=== PATIENT | female | born 1965 | race Caucasian/White ===

== ENCOUNTER 2023-05-27 17:28 | Outpatient (REF) | payer OTHER, SELFPAY ==
--- NOTE | ~2023-05-27 | MR_ITS ---
EXAMINATION: MR BRAIN WITHOUT CONTRAST CLINICAL INFORMATION: 57-year-old with tremors. COMPARISON: None available. TECHNIQUE: Multiplanar multisequence MR imaging of the brain was done without IV contrast. Some limitations related to motion artifact. FINDINGS: BRAIN VOLUME: Xjxz-qe-tawprdxl generalized diffuse parenchymal volume loss within the limitations of qualitative assessment. Slightly disproportional midbrain volume loss. STRUCTURAL: No malformations. BRAIN AND MENINGES: DWI sequence demonstrates no restricted diffusion to suggest acute or subacute cerebral ischemia. The brain parenchyma is normal in signal intensity. Gradient refocused imaging demonstrates no abnormal susceptibility-weighted signal loss to suggest hemorrhage, hemosiderin staining or abnormal mineralization. No extra-axial fluid collection, space-occupying process or mass effect is identified. VENTRICLES AND SUBARACHNOID SPACES: The ventricular system and subarachnoid spaces are approximately proportional to the degree of parenchymal volume loss, without hydrocephalus. ORBITAL STRUCTURES: The visualized orbital structures are grossly unremarkable within the limitations of the study. VASCULAR: Signal voids are noted in the visualized major intracranial vessels. OSSEOUS STRUCTURES, SINUSES/MASTOIDS, EXTRACRANIAL SOFT TISSUES: Unremarkable. MR/MR head/brain wo con IMPRESSION: 1. Limited exam due to motion artifact. 2. No acute intracranial process identified. No evidence for acute or subacute infarct, hemorrhage, extra-axial fluid collection, space-occupying process, mass effect or hydrocephalus and no significant brain signal abnormalities are seen. 3. Ihbg-ue-ldunfopi generalized diffuse brain parenchymal volume loss. Slightly disproportional midbrain volume loss is suspected. Cannot exclude progressive supranuclear palsy.
== END 2023-05-27 17:29 | disposition home or self-care (01) ==
LOC: HO.MRI 17:28
PROVIDERS: PCP Internal Medicine; Visit Provider Psychiatry & Neurology Neurology
DX: R25.1 Tremor, unspecified (principal)
CPT/HCPCS: 70551

== ENCOUNTER 2024-02-18 10:00 | Outpatient (AMB) | payer OTHER, SELFPAY ==
[2024-02-18 10:04] VITALS: BP 128/69; PULSE 108; O2SAT 96; BMI 37.1
--- NOTE | 2024-02-18 10:04 | MHC.OFFVIS ---
Vital Signs 02/18/24 10:04 Height 5 ft 4 in Weight 216 lb BMI 37.1 BP 128/69 Blood Pressure Location Lt brachial Position Sitting Pulse 108 H Pulse Source Pulse Oximeter Pulse Oximetry (%) 96 Oxygen Delivery Method Room Air Intake Visit Reasons: Chronic Abdominal Pain Allergies amoxicillin Allergy (Intermediate, Verified 02/18/24 10:05) Rash morphine Allergy (Intermediate, Verified 02/18/24 10:05) Chills Medication List - Last Reconciled 02/18/24 by Steff Conn buspirone 7.5 mg PO TID citalopram 40 mg PO DAILY estradiol 0.5 mg PO DAILY famotidine 20 mg PO DAILY fuehloaspmk-skfwnftht-pubayjzd 200-62.5-25 mcg (Trelegy Ellipta) 1 inh inhalation DAILY gabapentin 100 mg PO TID glipizide 10 mg PO DAILY meclizine 25 mg PO TID medroxyprogesterone 2.5 mg PO DAILY melatonin mg PO metformin 500 mg PO BID mirabegron ER (Myrbetriq) 25 mg PO DAILY omeprazole 40 mg PO DAILY primidone 50 mg PO BEDTIME simvastatin 20 mg PO BEDTIME sitagliptin phosphate (Januvia) 50 mg PO DAILY tizanidine 4 mg PO BID PRN HPI Comments Details: Ninoska is a very pleasant 58-year-old female who presents the office today, accompanied by her , for evaluation and management of her abdominal pain Reports sudden onset abdominal pain 4 months ago. Diffuse abdominal pain, mostly epigastric with radiation across upper abdomen on both sides. She does also reports some discomfort of her mid and lower abdomen. Pain initially started with abdomen, over time worsened to include radiation around her sides and now radiates around to her back. Pain is worse after eating and with some tenderness to palpation She has been to the emergency room approximately 5 times over last 4 months. Patient was referred by GI, she has undergone extensive testing with last 4 months including ultrasound, CT scan, upper endoscopy, abdominal MRI all without findings States they have ruled her out for kidney stones, gallstones, pancreatitis, ulcers, infection Denies blood in stool, blood in vomit, fevers, chills, dizziness, weakness, syncope Denies constipation, vomiting or diarrhea Pain is worse with eating. States it does not matter what she eats or when she eats it always makes the pain worse. Endorses nausea, she was given oral antiemetics from her GI doctor that provide her some improvement Has been taking acid reducers and sucralfate but symptoms persist Pain today is rated as 7 out 10, constant In terms of muscle damage condition is described as pinching, cramping, dull, sore, aching, hot Pain is negatively impacting patient's enjoyment of life, general activity, sleep, ability care of herself and ability to function normally. Denies current use of nicotine, tobacco, alcohol or illicit substances. Denies current use of anticoagulants Denies implantable devices, pacemaker or defibrillator COUNTS INCLUDE 234 BEDS AT THE [facility] Medical History (Updated 02/18/24 @ 11:34 by Sheryl Garduno APRN, LAURA) Chronic headaches Pancreatitis Insomnia Panic disorder Depression Anxiety Chronic back pain Obesity GERD (gastroesophageal reflux disease) Asthma Diabetes Surgical History (Updated 02/18/24 @ 11:32 by Sheryl Garduno APRN, LAURA) History of hip surgery H/O left wrist surgery H/O: hysterectomy Social History (Updated 02/18/24 @ 11:35 by Sheryl Garduno APRN, LAURA) Alcohol intake: never Patient Tobacco Use Status: Never used Tobacco Review of Systems Const All systems reviewed & are unremarkable except as noted in HPI and below Physical Exam Vital Signs: Last Vital Signs Pulse 108 H 02/18/24 10:04 BP 128/69 02/18/24 10:04 Pulse Ox 96 02/18/24 10:04 Oxygen Delivery Method Room Air 02/18/24 10:04 BMI result Body Mass Index 37.1 General: awake, alert, oriented. Answers questions appropriately. Fully engaged in examination. Obese. Skin: warm, dry, intact HEENT: Normocephalic. Hearing intact. Cardiac: External chest normal in appearance. Respiratory: No cough, audible wheezing or stridor. Abdomen: Abdomen soft. No guarding. Minimal diffuse tenderness to palpation. Normal bowel sounds present. MS: No obvious swelling or deformities. Able to transition from sit to stand unassisted. Ambulates with bilaterally normal heel strike and toe off Tender to palpation midline lower thoracic and upper lumbar vertebrae and paraspinal muscles Valsalva negative Neurological: Oriented to person, place, time and situation. Thought process intact. No gait abnormalities appreciated. Psychiatric: Appropriate mood and affect. Good judgment and insight. Results Reviewed Results Reviewed: Records have been requested for review Assessment & Plan Assessment & Plan (1) Abdominal pain: Code(s): R10.9 - Unspecified abdominal pain Category: Medical Plan Ninoska is a very pleasant 58-year-old female who presented the office today for evaluation and management of her abdominal pain Imaging, blood work and emergency room visit records have been requested from [facility] in [facility] Follow-up as planned for colonoscopy Celebrex 50 mg p.o. twice daily, patient advised on cautions for use. Take with food. Do not take with any other nonsteroidal anti-inflammatory medications. Follow up with GI as planned. Follow up in our office after colonoscopy, sooner if needed Medications: New celecoxib Take with food, do not take with any other nonsteroidal anti-inflammatory medications 50 mg PO BID 60 caps 0RF Coding Level of Care Code New Pt Level 4 (95810) Diagnoses Abdominal pain R10.9
== END 2024-02-18 11:34 | disposition home or self-care (01) ==
PROVIDERS: PCP Internal Medicine; Referring Provider Nurse Practitioner Primary Care; Visit Provider Registered Nurse Emergency
DX: R10.9 Unspecified abdominal pain (principal)
CPT/HCPCS: 99204

== ENCOUNTER → 2024-02-18 10:00 | Outpatient (BNVA) | payer OTHER, SELFPAY | PROVIDERS: PCP Internal Medicine; Referring Provider Nurse Practitioner Primary Care; Visit Provider Registered Nurse Emergency | DX: R10.9 Unspecified abdominal pain (principal); G89.29 Other chronic pain | CPT/HCPCS: 99202 ==

== ENCOUNTER 2024-03-03 13:06 | Emergency (ER) | payer OTHER, SELFPAY ==
[2024-03-03 13:48] VITALS: BP 134/92; PULSE 97; RESP 18; TEMP 36.4; O2SAT 96; BMI 36.0
[2024-03-03 14:09] LABS: MANUAL DIFF FLAG NO
[2024-03-03 14:11] LABS: Basophils Absolute Auto 0.1 X10*3/uL (0.0-0.2); Basophils Percent Auto 0.6 % (0-2); Eosinophils Absolute Auto 0.2 X10*3/uL (0.0-0.4); Eosinophils Percent Auto 1.2 % (0-4); Hematocrit 40.3 % (37.0-47.0); Hemoglobin 13.7 g/dl (12.0-16.0); Imm Gran Abs Auto 0.08 X10*3/uL (0.00-0.03); Imm Gran Pct Auto 0.7 % (0.0-0.4); Lymphocytes Absolute Auto 3.7 X10*3/uL (1.2-4.9); Lymphocytes Percent Auto 30.5 % (20-40); Mean Corpuscular Volume 91.2 fL (80.0-98.0); Mean Platelet Volume 9.7 fL (9.4-12.3); Monocytes Absolute Auto 0.7 X10*3/uL (0.1-1.2); Monocytes Percent Auto 5.3 % (2-11); Neutrophils Absolute Auto 7.5 x10*3/uL (2.0-8.3); Neutrophils Percent Auto 61.7 % (45-73); Platelet Count 380 X10*3/uL (160-400); Red Blood Count 4.42 X10*6/uL (4.20-5.50); White Blood Count 12.2 X10*3/uL (4.8-10.8)
[2024-03-03 14:24] LABS: Appearance Urine Clear; Color Urine Yellow; Glucose Urine UA 250 mg/dL (Negative); Leukocyte Esterase Urine Negative (Negative); Nitrite Urine Negative (Negative); PH 7.5 (5.0-9.0); Urine Blood Negative (Negative); Urine Ketones Negative (Negative); Urine Protein Negative (Neg-Trace)
[2024-03-03 14:30] LABS: Alanine Aminotransferase 14 U/L (0-31); Albumin Level 3.8 g/dL (3.5-5.0); Alkaline Phosphatase 129 U/L (39-117); Anion Gap 10 (12-20); Aspartate Amino Transferase 11 U/L (5-31); Bilirubin Total 0.2 mg/dL (0.0-1.0); Blood Urea Nitrogen 8 mg/dL (9-16); Calcium 8.9 mg/dL (8.4-10.2); Carbon Dioxide 23 mmol/L (22-29); Chloride 109 mmol/L (96-108); Creatinine Clr Calc Pharmacy 93.8; Estimated Glomerular Filt Rate > 60; Glucose Random 206 mg/dL (60-115); Lipase 10 U/L (8-78); Potassium 3.9 mmol/L (3.3-5.1); Sodium 138 mmol/L (135-145); Total Protein 6.9 g/dL (6.5-8.0)
[2024-03-03 17:05] VITALS: BP 138/77; PULSE 80; RESP 16; TEMP 36.6; O2SAT 96
--- NOTE | 2024-03-03 17:06 | MHC.EDTECH ---
This pct just assumed care of patient ,vitals taken ,RN Gabi in room talking to Patient .Call mcmahan within Pt reach .
--- NOTE | 2024-03-03 17:13 | PC.NURSE ---
Pt presents to ED from home, reports 5 months of ABD pain generalized along with nausea. Reports she had been to multiple ERs with no answers. Pain is 9/10, all over, hard to describe. Alert and oriented, breathing even and unlabored, skin warm and dry
--- NOTE | 2024-03-03 17:15 | ED_ITS ---
HPI - Abdominal Pain General Chief Complaint: Abdominal Pain Stated Complaint: abd pain-back pain-weakness Time Seen by Provider: 03/03/24 17:09 Source: patient Mode of arrival: ambulatory Limitations: no limitations History of Present Illness ED Provider: doris MELGAR narrative: Patient has chronic abdominal pain for more than 6 months had multiple workup including ultrasound CT scan MRI seen by GI unable to get better no nausea no vomiting abdominal bloating recently started on dicyclomine without much also taking Seroquel and tizanidine. Related Data Home Medications ?Medication ?Instructions ?Recorded ?Confirmed buspirone 7.5 mg tablet 7.5 mg PO TID 02/18/24 02/18/24 citalopram 40 mg tablet 40 mg PO DAILY 02/18/24 02/18/24 estradiol 0.5 mg tablet 0.5 mg PO DAILY 02/18/24 02/18/24 famotidine 20 mg tablet 20 mg PO DAILY 02/18/24 02/18/24 fluticasone fur. 200 mcg-umeclid 1 inh inhalation DAILY 02/18/24 02/18/24 62.5 mcg-vilant 25 mcg inhalat.powder (Trelegy Ellipta) gabapentin 100 mg capsule 100 mg PO TID 02/18/24 02/18/24 glipizide 10 mg tablet 10 mg PO DAILY 02/18/24 02/18/24 meclizine 25 mg tablet 25 mg PO TID 02/18/24 02/18/24 medroxyprogesterone 2.5 mg tablet 2.5 mg PO DAILY 02/18/24 02/18/24 melatonin 5 mg capsule mg PO 02/18/24 02/18/24 metformin 500 mg tablet 500 mg PO BID 02/18/24 02/18/24 mirabegron 25 mg tablet,extended 25 mg PO DAILY 02/18/24 02/18/24 release 24 hr (Myrbetriq) omeprazole 40 mg capsule,delayed 40 mg PO DAILY 02/18/24 02/18/24 release primidone 50 mg tablet 50 mg PO BEDTIME 02/18/24 02/18/24 simvastatin 20 mg tablet 20 mg PO BEDTIME 02/18/24 02/18/24 sitagliptin phosphate 50 mg tablet 50 mg PO DAILY 02/18/24 02/18/24 (Januvia) tizanidine 4 mg capsule 4 mg PO BID PRN 02/18/24 02/18/24 Previous Rx's ?Medication ?Instructions ?Recorded celecoxib 50 mg capsule 50 mg PO BID #60 caps 02/18/24 tramadol 50 mg tablet 50 mg PO Q8-10H PRN pain #20 tabs 03/03/24 Allergies Allergy/AdvReac Type Severity Reaction Status Date / Time amoxicillin Allergy Intermediate Rash Verified 03/03/24 13:49 morphine Allergy Intermediate Chills Verified 03/03/24 13:49 Review of Systems Review of Systems Yes all other systems are reviewed and are negative [facility] Past Medical History Medical History Chronic headaches Pancreatitis Insomnia Panic disorder Depression Anxiety Chronic back pain Obesity GERD (gastroesophageal reflux disease) Asthma Diabetes Surgical History History of hip surgery H/O left wrist surgery H/O: hysterectomy Social History Social History Alcohol intake: never Patient Tobacco Use Status: Never used Tobacco Smoked in Last 30 Days: No Use of substances other than those prescribed or required for medical reasons: No Advance Directives: No Advance Directives Information Provided: Yes Do you have a plan to hurt others: No Plan Physical Exam ED Vital Signs: Vital Signs - 24 hr 03/03/24 13:48 03/03/24 17:05 03/03/24 18:19 Temperature 97.5 F 97.8 F 98.7 F Pulse Rate 97 80 77 Respiratory Rate 18 16 16 Blood Pressure 134/92 H 138/77 134/70 Pulse Oximetry 96 96 Oxygen Delivery Method Room Air Room Air Room Air 03/03/24 19:08 Temperature 98.7 F Pulse Rate 77 Respiratory Rate 16 Blood Pressure 134/70 Pulse Oximetry Oxygen Delivery Method Room Air BMI result Body Mass Index 36.0 Appearance: Alert. Oriented X3. No acute distress. Eyes: PERRLA, No Nystagmus ENT: Pharynx normal. Oral Mucosa moist Neck: Normal inspection. Neck supple. CVS: Normal heart rate and rhythm. Pulses normal. Respiratory: No respiratory distress. Equal air entry bilateral, no wheezing/rales/rhonchi Abdomen: Soft and diffuse tenderness no rebound tenderness or guarding Bowel sounds are present, no mass palpable, no CVA tenderness Skin: Skin warm and dry. Normal skin color. Normal skin turgor. Extremities: No lower extremity edema. No calf tenderness Neuro: Oriented X 3. No motor deficit. Medical Decision Making Medical Decision Making [facility] Narrative: Patient has chronic abdominal pain likely IBS workup negative labs were stable previous workup including MRI and CT scans negative will discharge patient home on Tramadol and advised to continue dicyclomine Differential Diagnosis Differential Diagnoses: The differential diagnosis associated with the presentation includes IBS/chronic abdominal pain/anxiety Lab Data [facility] Lab Attestation statement: I reviewed the patient's lab results. 03/03/24 14:04 03/03/24 14:04 Labs: Lab Results 03/03/24 Range/Units 14:04 WBC 12.2 H (4.8-10.8) X10*3/uL RBC 4.42 (4.20-5.50) X10*6/uL Hgb 13.7 (12.0-16.0) g/dl Hct 40.3 (37.0-47.0) % MCV 91.2 (80.0-98.0) fL MCH 31.0 (27.0-33.0) pg MCHC 34.0 (31.0-35.0) g/dl RDW 13.0 (11.0-16.0) % Plt Count 380 (160-400) X10*3/uL MPV 9.7 (9.4-12.3) fL Immature Gran % (Auto) 0.7 H (0.0-0.4) % Neut % (Auto) 61.7 (45-73) % Lymph % (Auto) 30.5 (20-40) % [place]y % (Auto) 5.3 (2-11) % Eos % (Auto) 1.2 (0-4) % Baso % (Auto) 0.6 (0-2) % Lymph # (Auto) 3.7 (1.2-4.9) X10*3/uL [place]y # (Auto) 0.7 (0.1-1.2) X10*3/uL Eos # (Auto) 0.2 (0.0-0.4) X10*3/uL Baso # (Auto) 0.1 (0.0-0.2) X10*3/uL Abs Immat Gran (auto) 0.08 H (0.00-0.03) X10*3/uL Absolute Neuts (auto) 7.5 (2.0-8.3) x10*3/uL Absolute Nucleated RBC 0.000 (0.0-0.012) X10*3/uL Nucleated RBC % (auto) 0.0 (0.0-0.2) /100WBC Sodium 138 (135-145) mmol/L Potassium 3.9 (3.3-5.1) mmol/L Chloride 109 H (96-108) mmol/L Carbon Dioxide 23 (22-29) mmol/L Anion Gap 10 L (12-20) BUN 8 L (9-16) mg/dL Creatinine 0.74 (0.5-1.4) mg/dL Estim Creat Clear Calc 93.8 Estimated GFR > 60 Random Glucose 206 H (60-115) mg/dL Calcium 8.9 (8.4-10.2) mg/dL Magnesium 2.0 (1.6-2.6) mg/dL Total Bilirubin 0.2 (0.0-1.0) mg/dL AST 11 (5-31) U/L ALT 14 (0-31) U/L Alkaline Phosphatase 129 H (39-117) U/L Total Protein 6.9 (6.5-8.0) g/dL Albumin 3.8 (3.5-5.0) g/dL Lipase 10 (8-78) U/L Urine Color Yellow Urine Appearance Clear Urine pH 7.5 (5.0-9.0) Ur Specific [place] 1.020 (1.005-1.025) Urine Protein Negative (Neg-Trace) mg/dL Urine Glucose (UA) 250 H (Negative) mg/dL Urine Ketones Negative (Negative) mg/dL Urine Blood Negative (Negative) Urine Nitrite Negative (Negative) Ur Leukocyte Esterase Negative (Negative) Medications Administered Discontinued Medications Generic Name Dose Route Start Last Admin Trade Name Freq PRN Reason Stop Dose Admin Al Hydroxide/Mg Hydroxide 30 ml 03/03/24 18:50 03/03/24 18:54 Magnesium Hydrox/Alum Hydrox 30 Ml Oral.Susp PO 03/03/24 18:51 30 ml ONCE ONE Administration Dicyclomine HCl 20 mg 03/03/24 17:27 03/03/24 17:46 Dicyclomine Hcl 10 Mg Capsule PO 03/03/24 17:28 20 mg ONCE ONE Administration Ketorolac Tromethamine 30 mg 03/03/24 18:07 03/03/24 18:45 Ketorolac Tromethamine 30 Mg/Ml Vial IVPUSH 03/03/24 18:08 30 mg ONCE ONE Administration Tramadol HCl 50 mg 03/03/24 17:27 03/03/24 17:46 Tramadol Hcl 50 Mg Tablet PO 03/03/24 17:28 50 mg ONCE ONE Administration Discharge Plan Discharge Clinical Impression: Irritable bowel syndrome Patient Disposition: Home, Self-Care Instructions: Irritable Bowel Syndrome (ED) Additional Instructions: Continue dicyclomine as prescribed by your PCP Tramadol for severe pain Follow with a GI/PCP Avoid food as advised Prescriptions: New tramadol 50 mg tablet 50 mg PO Q8-10H PRN (Reason: pain) Qty: 20 0RF No Action citalopram 40 mg tablet 40 mg PO DAILY primidone 50 mg tablet 50 mg PO BEDTIME buspirone 7.5 mg tablet 7.5 mg PO TID famotidine 20 mg tablet 20 mg PO DAILY mirabegron [Myrbetriq] 25 mg tablet extended release 24 hr 25 mg PO DAILY simvastatin 20 mg tablet 20 mg PO BEDTIME melatonin 5 mg capsule PO medroxyprogesterone 2.5 mg tablet 2.5 mg PO DAILY glipizide 10 mg tablet 10 mg PO DAILY omeprazole 40 mg capsule,delayed release(DR/EC) 40 mg PO DAILY Januvia 50 mg tablet 50 mg PO DAILY estradiol 0.5 mg tablet 0.5 mg PO DAILY Rx Instructions: off 5 days; repeat cycle tizanidine 4 mg capsule 4 mg PO BID PRN meclizine 25 mg tablet 25 mg PO TID Trelegy Ellipta 200-62.5-25 mcg blister with device 1 inh inhalation DAILY metformin 500 mg tablet 500 mg PO BID gabapentin 100 mg capsule 100 mg PO TID celecoxib 50 mg capsule 50 mg PO BID Qty: 60 0RF Rx Instructions: Take with food, do not take with any other nonsteroidal anti-inflammatory medications Interventions: ED Discharge Assessment Last Done: 03/03/24 19:08 Discharge Date/Time: 03/03/24 19:19 Print Language: Trinidadian
[2024-03-03] MEDS: Dicyclomine HCl 10 MG CAPSULE 20 MG PO (17:46)
[2024-03-03] MEDS: traMADoL HCL 50 MG TABLET PO (17:46)
[2024-03-03 18:19] VITALS: BP 134/70; PULSE 77; RESP 16; TEMP 37.1
[2024-03-03] MEDS: Ketorolac Tromethamine 30 MG/ML VIAL IVPUSH (18:45)
[2024-03-03] MEDS: Magnesium Hydrox/Alum Hydrox 30 ML ORAL.SUSP PO (18:54)
[2024-03-03 19:08] VITALS: BP 134/70; PULSE 77; RESP 16; TEMP 37.1
== END 2024-03-03 19:19 | disposition home or self-care (01) ==
PROVIDERS: Physician Assistant; Emergency Provider Internal Medicine; PCP Internal Medicine
DX: K58.9 Irritable bowel syndrome, unspecified (principal); R10.9 Unspecified abdominal pain; E11.9 Type 2 diabetes mellitus without complications; R51.9 Headache, unspecified; Z79.899 Other long term (current) drug therapy
CPT/HCPCS: 36415; 80053; 81003; 83690; 83735; 85025; 96374; 99284; 99285; J1885

== ENCOUNTER 2025-01-12 12:59 | Outpatient (AMB) | payer OTHER, SELFPAY ==
--- NOTE | 2025-01-12 13:07 | A.OFFVIS_ITS ---
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 There was family h/o Mahad disease , which I could not independently confirm. Her gene test for Huntingtone disease was negative. Headaches were controlled with topiramate. Primidone was helping with tremor and unsteadiness. And quetiapine was helping with mood and insomnia. She was happy with quetiapine stating that it worked very well. She was haivng a lot of back pain from arthritis and was going to have steroid injections. Sleep was not good. She has not fallen. [facility] Medical History (Updated 01/12/25 @ 13:19 by Wen De La Garza MD) Carpal tunnel syndrome Carpal tunnel syndrome, bilateral upper limbs Olivopontocerebellar atrophy Ataxia Migraine Dyskinesia Chronic headaches Pancreatitis Insomnia Panic disorder Depression Anxiety Chronic back pain Obesity GERD (gastroesophageal reflux disease) Asthma Diabetes Surgical History History of hip surgery H/O left wrist surgery H/O: hysterectomy Social History Alcohol intake: never Patient Tobacco Use Status: Never used Tobacco Review of Systems Const Details: Constitutional:?No fever, chills, fatigue, weight loss, or night sweats. HEENT:?No headache, vision changes, hearing loss, nasal congestion, sore throat. Neurological:?Difficulty sleeping with back pain Psychiatric:?No anxiety, depression, mood swings, sleep disturbance, or halluci nations. Endocrine:?No heat/cold intolerance, polydipsia, polyuria, or hair/skin changes. Hematologic/Lymphatic:?No easy bruising, bleeding, or lymphadenopathy. Integumentary (Skin):?No rash, lesions, itching, or color changes. ? Physical Exam Neuro Other: Mental Status: Alert and oriented to person, place, and time. Normal attention. Normal spontaneous speech, fluency, and comprehension. No obvious issues with mood and memory. Affect is appropriate. Cranial Nerves: CN II: Visual cary full to confrontation, visual acuity intact. CN III, IV, : Pupils equal, round, reactive to light and accommodation. Extraocular movements are normal. CN V: Facial sensation is normal. CN VII: Facial movements symmetrical. CN VIII: Hearing intact to bedside conversation is normal. CN IX, X: Palate elevates symmetrically. CN XI: Shoulder shrug and head turn symmetrical. CN XII: Tongue midline without atrophy or fasciculations. Extrapyramidal: Mild to moderate finger to nose tremor, mild gait unsteadiness of ataxic type Speech: Normal; no dysarthria or tremor. Assessment & Plan Assessment & Plan (1) Olivopontocerebellar atrophy: Comment: Meds tried for shaking/dyskinesia: Austedo NCV/EMG UE Moderate bilateral median neuropathy across the Carpal tunnel. Chronic bilateral mid cervical radiculopathy. 02/24/24. Mahad disease test at [facility] in Apr 2023: Negative CT brain WO at [facility] in 2017: Mild atrophy MRI brain WO at [facility] in May 2023: mild to mod diff atroph, somewhat more in brainstem and cerebellum, caudate are ok. Code(s): G23.8 - Other specified degenerative diseases of basal ganglia Category: Medical (2) Migraine without aura, not intractable, without status migrainosus: Code(s): G43.009 - Migraine without aura, not intractable, without status migrainosus Category: Medical (3) Insomnia: Code(s): G47.00 - Insomnia, unspecified Category: Medical Qualifiers: Insomnia type: due to medical condition Qualified Code(s): G47.01 - Insomnia due to medical condition (4) Tremor: Code(s): R25.1 - Tremor, unspecified Category: Medical Plan Impression: a: Tremor with MRI brain suggesting OPCA b: Migraine w/o aura c: Insomnia Rec: a: Primidone 50mg at night b: Topiramate 50mg at night c: Quetiapine 50mg at night Medications: New primidone 50 mg PO BEDTIME 90 tabs 1RF topiramate 50 mg PO DAILY 90 days 90 tabs 0RF topiramate 50 mg PO DAILY 90 tabs 0RF 90 days quetiapine 50 mg PO BEDTIME 90 tabs 0RF quetiapine 50 mg PO BEDTIME 90 tabs 0RF Refilled primidone 50 mg PO BEDTIME 90 tabs 1RF Coding Level of Care Code Tele Est Pt Level 4 (87923) Diagnoses Olivopontocerebellar atrophy G23.8 Migraine without aura, not intractable, without status migrainosus G43.009 Insomnia due to medical condition G47.01 Insomnia type: due to medical condition Tremor R25.1
--- OUTSIDE RECORDS SUMMARY | 2025-01-12 13:25 | XMS_ITS | Patient Health Record ---
Author Organization [facility] [place] Address [address] [place] [address] Care Team Providers Care Scientific Affairs Manager Name Role Phone Shay Rocha Primary Care Provider Unavailab Chino Arreguin Unavailable [phone] Salma Mcfadden Unavailable [phone] Reason For Referral No Information Encounters Encounter Location Date Provider [facility] [address] [facility] [address] [place] [address] 11/08/2024 Salma Mcfadden Plan Of Treatment No Information Insurance Providers Payer Name Payer Address Payer Phone Subscriber Number Group Number Insured Name Patient Relationship to Insured Coverage Start Date Coverage End Date [facility] [employer] Claims [address] [place] [id number] Ninoska Rooney Self - patient is the insured
--- OUTSIDE RECORDS SUMMARY | 2025-01-12 13:25 | XMS_ITS | Encounter Summary ---
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 Medical Records [address] [place] [address] Mark Figueroa MD Social History Tobacco Use Types Packs/Day Years Used Date Smoking Tobacco: Never Smokeless Tobacco: Never Alcohol Use Standard Drinks/Week Comments No 0 (1 standard drink = 0.6 oz pur e alcohol) Sex Assigned at Date Recorded Not on file Job Start Date Occupation Industry Not on file Not on file Not on file documented as of this encounter Plan of Treatment Not on file documented as of this encounter Visit Diagnoses Not on filedocumented in this encounter Care Teams Gear Inspector Relationship Specialty Start Date End Date Tyree Talamantes MD PCP - General Internal Medicine 11/22/15 Sol Knutson MD [address] [place] [id number] PCP - General Internal Medicine 06/07/21 11/21/22 Shay Rocha [address] [place] [id number] PCP - General Internal Medicine 11/22/22 documented as of this encounter
--- OUTSIDE RECORDS SUMMARY | 2025-01-12 13:26 | XMS_ITS | Encounter Summary ---
Author Organization [facility] Address [address] [place] [address] Care Team Providers Care Station Repairer Name Role Phone Shay Rocha MD Primary Care Provider Encounter Details Date Type Department Care Team (Late st Contact Info) Description 12/10/2024 Telephone [facility] [id number] [place] [address] Felice Christianson MD [address] [place] [address] Social History Tobacco Use Types Packs/Day Years Used Date Smoking Tobacco: Never Smokeless Tobacco: Never Alcohol Use Standard Drinks/Week Comments No 0 (1 standard drink = 0.6 oz pur e alcohol) Comments No Sex and Gender Information Value Date Recorded Sex Assigned at Female 09/07/2024 2:03 AM EDT Legal Sex Female 10:54 AM EST Gender Identity Female 09/07/2024 2:03 AM EDT Sexual Orientation Choose not to disclose 2024 2:03 AM EDT documented as of this encounter Progress Notes * Sanyd Evangelista RN - 01/12/2025 9:33 AM EDT Marlee 3+ sensors delivered 12/31 PA faxed to [facility] for Marlee 3 reader * Maria E Collins - 12/27/2024 11:35 AM EDT Diaz from [employer] is calling to follow up on below PA for sensor. She is wondering if we have received any response since submitting PA to [facility] on 12/21 ? Asking for call back to [phone] * Sandy Evangelista RN - 12/21/2024 9:31 AM EDT PA form completed with OV and faxed to [facility] PA line * Afua Avelar MA - 12/10/2024 5:09 PM EDT Per Cover my Meds The patient currently has access to the requested medication and a Prior Authorization is not needed for the patient/medication. - Will need to call [facility] for additional details. * Shira Haas - 12/10/2024 4:10 PM EDT Prior Authorization for Medication-do not complete and send this encounter unless you have the fax from the pharmacy. Is this a Cover My Meds request: Yes -- Jacobo Code [id number] Name of Medication FREESTYLE MARLEE 3 PLUS SENSOR Dose of Medication MARLEE 3 PLUS What is the RX # from the faxed refill? N/A How does patient take this med? Change sensor every 15 days, What Pharmacy did the fax come from: [facility] fax #: NON PROVIDED [phone] documented in this encounter Plan of Treatment Upcoming Encounters Date Type Department Care Team (Late st Contact Info) Description 02/22/2025 2:30 PM EDT Office Visit Endocrinology - [place] [address] [place] [address] [place] [phone] Felice Christianson MD [address] [place] [address] 04/06/2025 1:00 PM EDT Office Visit Urogynecology [address] [phone] Neetu Ortiz MD [address] [facility] [address] [place] [address] 04/07/2025 11:20 AM EDT Office Visit Gastroenterology - [place] [address] [facility] [address] [facility] [address] [place] [address] Kassandra Prado, RUSS [address] [facility] [address] [place] [address] 04/20/2025 11:45 AM EDT Office Visit Urogynecology [address] [phone] Jen Quan MD [address] [facility] [address] [place] [address] 04/25/2025 2:00 PM EST Office Visit Adult Medicine [address] [phone] Agnes Ayala PA [address] [place], [place] documented as of this encounter Goals Goal Patient Goal Type Associated Problems Recent Progress Patient-Stated? Author STG's 6 visits General Yes Helio Stark, PT Note: Pt will report a 1 point or better decrease in back pain during household activities. Pt is Independent and compliant with initial HEP. Pt will perform correct technique for sup<->sit transfers w/ min VC's in 5/5 trials. Pt will demonstrate a 1/2 grade or better increase in core and LE strength deficits to increase tolerance to daily activities. LTG's 12 visits General Yes Helio Stark, PT Note: Pt will report a 2 grade or better decrease in back pain during household activities. Pt will be Independent and compliant with final HEP. Pt will I demonstrate proper technique for sup<->sit transfers in 5/5 trials. Pt will demonstrate a 1 grade or better increase in core and LE strength deficits to increase tolerance to daily activities. documented as of this encounter Visit Diagnoses Not on filedocumented in this encounter Care Teams Station Repairer Relationship Specialty Start Date End Date Shay Rocha MD [address] [place] [id number] PCP - General 11/22/22 documented as of this encounter
--- OUTSIDE RECORDS SUMMARY | 2025-01-12 13:26 | XMS_ITS | Data Portability ---
Author Organization [facility] [employer], [employer] Address [address] [place] [address] [place] [id number] Care Team Providers [employer] Salesperson Name Role Phone SHAREE CORONEL Primary Care Provider Assessment Encounter Date Assessment Date Assessment LastModified by Organization Details LastModified Time 03/15/2021 03/15/2021 IMPRESSION: --Worsening of headache, now daily, previously absent on amitriptyline 25 mg nightly --New issues of stiffness of limbs. --December 2019 symptoms of memory worsening, non-refreshing sleep. 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 --Restless leg syndrome is newly diagnosed by primary care, handled by 200 mg gabapentin every evening. MEDICATION: She has no other medication changes. Therefore, an addition to amitriptyline 25 mg (or 50 mg transiently) nightly and Austedo: Medication review comparing to list from July 2017: In addition to Austedo 12 mg every 12 hours and Gabapentin now 200 mg every morning 300 mg every evening, metformin: Other medications have not changed per patient, and/or, per review September 19, 2016: naproxen 500 mg twice a day, citalopram 20 mg tablets, 1.5 tabs daily, omeprazole 20 mg capsule once a day, tizanidine 4 mg tablet once or twice a day (3 times a day prescription as needed was (, multivitamin daily, meclizine as needed, simvastatin 20 mg nightly. I was previously mistaken that the patient has a psychiatrist; she does not. There are no anti-dopaminergic medications to make we suggest tardive dyskinesia as a diagnosis for her twitching. There is also a medication for anemia. HEADACHE I cannot say why headaches have worsened. She has not had side effects on 50 mg amitriptyline nightly. I will set this as standard dose so she does not run out and then reevaluate. To review: Topamax is relatively contraindicated as she has kidney stone remotely in the past. Propranolol is relatively contraindicated as it could mask hypoglycemia context diabetes. Therefore, should we need something extra, CGRP inhibitor medication would be our next direction. NEW STIFFNESS I cannot say why she has some stiffness in her limbs. Primary care has asked her to see me which suggests that they do not believe this is arthritis. We agree that she will come in for neurological exam. She had thought she could not come in without her partner which had caused the problem as he works and cannot get time off. We discussed that I am happy for her to come with medical transport without him when we are not discussing issues related to memory. MEMORY I will not focus on memory today as her concern from December 2019 has resolved. We were going to do Cognivue memory testing but she never showed up for that. I will not reschedule at this point. I had asked her to get laboratories: B12 studies, thyroid studies, vitamin D. We did not receive results. I did not pursue this further February 2021 My thoughts at that time on memory: Memory worsening could be related to Geneva s disease in which case there is no clear treatment. Memory worsening could relate to sleep apnea for which she has some suggestive signs/symptoms. We will get appropriate workup. Previous discussions: Mid 2018: Her boyfriend has noticed a little worse memory, a little worse twitching. This is not sufficiently definitive to be progression to make a diagnosis of Geneva s disease more likely. Moreover, the behavioral changes that make it even more likely have not emerged. She would turn to her boyfriend if her memory worsens so that she needs help in this context. I asked that she bring her boyfriend in and we discuss the reason: Mahad s disease in all likelihood will cause memory worsening. . She has not investigated potential assisted living situations as I recommended, as she has said she would move in that direction if she has to. SLEEP I had sent her for sleep consultation December 2019. February 2021: We did not discuss the outcome of this referral. I will do this at a follow-up. TWITCHING For twitching, 12 mg every 12 hours is providing 80% relief and this remains sufficient for her. To review, Austedo is specifically for symptomatic relief of twitching that might relate to Geneva s disease (it might also help with tardive dyskinesia which she definitively does not have). 15 mg 3 times a day remains in reserve. 18 mg in the morning caused restlessness. I wonder if part of this is what is being treated at night with gabapentin. In any case, we will avoid 18 mg There is no significant depression. Although Austedo does not carry a black box warning, we will continue to monitor. We have discussed the horizon of Geneva s disease, this time for the first time with her significant other present. I think she understands that for thought, planning ahead, for how she might move toward help when she needs it, it is important. My recommendations on this is detailed in the planning below. To review, her [id number] has said that she is sometimes stubborn about letting people help. 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 EEG is normal. Brain MRI does not show any obvious striatal atrophy (putamen or caudate). MRI is sensitive late in the disease, but less sensitive for young individuals early in disease. This twitching does not look like simple myoclonus that might accompany Creutzfeldt-Андрей disease. There are no brain MRI changes to suggest Creutzfeldt-Андрей disease. I have no further directions for diagnostic inquiry. Most particularly, Geneva gene evaluation is not an option as insurance have agreed to pay, but there is a co-pay. The patient cannot afford the co-pay. The fact that there is Geneva s disease in her maternal family line but her mother does not have Geneva s disease is somewhat unusual. Reduced penetrance can be seen, however, when there are relatively few (but still abnormally high) CAG repeats in the Mahad gene (Mahad s disease is a triplicate repeat disease). To review, there are other rare directions of inquiry that we are not pursuing: Choices include investigation for autoimmune encephalitis: twitching may be seen in a subset of autoimmune encephalitis etiologies but is usually part of a larger symptom complex and her symptoms do not suggest, for instance, neuromyotonia (Luis Felipe s syndrome). However, I could consider auto antibody testing at a future follow-up. She may not be able to afford the copayment for this either. There are treatments for some autoimmune encephalitides, steroids first and then more helpful immunomodulatory medication. PLAN [facility] March 15, 2021 To help headaches: CONTINUE amitriptyline, 25 mg tablets, one tablet at bedtime To help your abnormal movements that seem to be from Geneva s disease, CONTINUE Deutetrabenazine (also known as Austedo): 12 mg, one orange pill, every 12 hours For restless legs, continue, under management of primary care: Gabapentin 100 mg capsules 2 capsules every morning 3 capsules every evening. SAFETY NET You have memory problems that are likely going to slowly worsen. In this context, we agreed that a safety net is important, and will become more important as Mahad's disease slowly gets worse. You agree that your significant other will watch over your medication organizer to make sure that you don't make a mistake that might cause harm, especially with new diagnosis of diabetes as missing medication for diabetes could cause significant harm fairly quickly. Mateo, Your significant other will continue to help you with any financial matters to prevent mistakes in this direction. Please use significant other (Mateo) or healthcare transportation service for necessary transportation (medical appointments; shopping). In the future, in several years, you will probably need more help. You have decided that you would first turned to your significant other for help that he might be able to provide, and if necessary you would also consider moving toward assisted-living if I have to. Please investigate specific assisted living places to find a place that suits your needs. Informed him that you have Geneva's disease and that he will have slowly worsening memory in the years to come. Follow-up in for memory testing and telemedicine follow-up after that. Please bring your significant other, Mateo, to your neurology appointments. rossana Not available 03/15/2021 12:52:42 09/20/2021 09/20/2021 IMPRESSION: --Partially better headaches with increase of amitriptyline to 50 mg nightly, but still every other day, now apparently predominantly occurring at waking, sleep apnea concern. --December 2019 symptoms of memory worsening, non-refreshing sleep, snoring occasionally per her partner. --March 15, 2021 issue of stiffness of limbs that persists, no change-- not able to relax limbs, limbs getting tired. 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 --Restless leg syndrome is diagnosed by primary care, handled by gabapentin under their management. MEDICATION: She has no other medication changes. Therefore, an addition to amitriptyline 25 mg (or 50 mg transiently) nightly and Austedo: Medication review comparing to list from July 2017: In addition to Austedo 12 mg every 12 hours and Gabapentin now 200 mg every morning 300 mg every evening, metformin: Other medications have not changed per patient, and/or, per review September 19, 2016: naproxen 500 mg twice a day, citalopram 20 mg tablets, 1.5 tabs daily, omeprazole 20 mg capsule once a day, tizanidine 4 mg tablet once or twice a day (3 times a day prescription as needed was (, multivitamin daily, meclizine as needed, simvastatin 20 mg nightly. I was previously mistaken that the patient has a psychiatrist; she does not. There are no anti-dopaminergic medications to make we suggest tardive dyskinesia as a diagnosis for her twitching. There is also a medication for anemia. HEADACHE , DAYTIME TIREDNESS I can output together the January 11, 2020 report of daytime tiredness and occasional snoring at the time, with March 15, 2021 worsening headaches which I now understand occur predominantly in the morning. Perhaps some of her memory issues relate as well. She has not gone for sleep medicine evaluation sleep apnea with my referral January 11, 2020. We discuss repeat referral and she accepts. STIFFNESS AND TWITCHING Neurological exam reveals dysrhythmic relatively small finger tapping and foot tapping. Motor dyscontrol may occur with Geneva's disease and perhaps this is the answer. Unfortunately, there is no treatment for Geneva's disease voluntary motor dyscontrol. Austedo treats the involuntary dyscontrol of twitching and she is having more twitching. We agreed to try to help the twitching through increase of the Austedo from 12 mg twice daily up to 15 mg twice daily, remembering that 18 mg twice daily in the past caused restlessness/akathis ia. I will be surprised but happy if it also helps her feeling of not being able to relax her limbs and tiredness of her limbs. I have wondered if the 18 mg dose causing restlessness was the restless legs which is now treated by primary care with gabapentin. We can consider retrial of 18 mg dosage if needed because of this possibility. Ingrezza may also help with the involuntary movements of Geneva's disease and is in reserve. MEMORY Assisted living facilities have told her she is too young. Her son now lives with her and helps with caregiving so she does not feel a pressing need to move forward with assisted living. 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 I have given her contact information [facility] to see if they can be a good connection for her if she wants to move in that direction at some point. Cognivue testing may give elucidation on cognition dysfunction. She has no showed once when we scheduled it. We will try again. I previously asked her to get: B12 studies, thyroid studies, vitamin D. We did not receive results. I did not pursue this further February 2021 and defer to primary care at this point. We have discussed the horizon of Mahad s disease, including once with her significant other present. I think she understands that for thought, planning ahead, for how she might move toward help when she needs it, it is important. To review, her nrkehu-mr-vap has said that she is sometimes stubborn about letting people help. 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 EEG is normal. Brain MRI does not show any obvious striatal atrophy (putamen or caudate). MRI is sensitive late in the disease, but less sensitive for young individuals early in disease. This twitching does not look like simple myoclonus that might accompany Creutzfeldt-Андрей disease. There are no brain MRI changes to suggest Creutzfeldt-Андрей disease. I have no further directions for diagnostic inquiry. Most particularly, Geneva gene evaluation is not an option as insurance have agreed to pay, but there is a co-pay. The patient cannot afford the co-pay. The fact that there is Geneva s disease in her maternal family line but her mother does not have Geneva s disease is somewhat unusual. Reduced penetrance can be seen, however, when there are relatively few (but still abnormally high) CAG repeats in the Geneva gene (Mahad s disease is a triplicate repeat disease). To review, there are other rare directions of inquiry that we are not pursuing: Choices include investigation for autoimmune encephalitis: twitching may be seen in a subset of autoimmune encephalitis etiologies but is usually part of a larger symptom complex and her symptoms do not suggest, for instance, neuromyotonia (Luis Felipe s syndrome). However, I could consider auto antibody testing at a future follow-up. She may not be able to afford the copayment for this either. There are treatments for some autoimmune encephalitides, steroids first and then more helpful immunomodulatory medication. PLAN [facility] September 20, 2021 HEADACHES ---- You have worsening headaches in the morning and you snore, therefore, I am referring you to sleep medicine to look for sleep apnea: Sleep medicine referral for morning headaches, snoring, with concern for sleep apnea. [place] [address] The sleep medicine facility should call you within a few days. If they do not call within a week, please call them to understand when you will be scheduled for your imaging. If there is any uncertainty or confusion, please call us to help clarify things. 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 Memory problems are likely to slowly worsen. I have recommended investigation of assisted living. Facilities have told you you are too young. However, you have a disease that causes cognitive slowing at a younger age and I believe that you should be able to have assisted living. [facility] offers a patient care specialist and a nurse analysis manager to help you through the bureaucracy toward moving toward assisted living. 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 Please call them to find out: [facility] [employer]. [address] [place] [address] Web: [email or web address] Cognivue testing of cognition Cognivue is a new FDA approved computerized test, 10 minutes in length, consisting of a set of cognitive probes across cognitive domains that was developed by neurologist/neurosci entist team based on cognitive and neurophysiological data over recent decades. Cognivue probes at the cognitive perceptive boundary and is thus relatively free of subjective biases that exist from various paper and pencil neuropsychology tests of cognitive functioning TWITCHING To help your abnormal movements that seem to be from Geneva's disease, INCREASE Deutetrabenazine (also known as Austedo) dose size from 12 mg up to 15 mg at each dose: Austedo, 6 mg tablets, 2.5 tablets every 12 hours. For RESTLESS LEGS Continue, under management of primary care: Gabapentin 100 mg capsules 2 capsules every morning 3 capsules every evening. SAFETY NET Because we you have memory problems, we have agreed: Your significant other, Mateo will continue to watch over your medication organizer to make sure that you don't make a mistake that might cause harm, especially with new diagnosis of diabetes as missing medication for diabetes could cause significant harm fairly quickly. Mateo will continue to help you with any financial matters to prevent mistakes in this direction. Please allow Mateo or healthcare transportation service to provide necessary transportation (medical appointments; shopping). Follow-up in 2 months for Cognivue testing of memory and for going over results afterwards. Mark Figueroa MD, PhD [facility] mrlianan Not available 09/20/2021 17:39:15 11/22/2021 11/22/2021 IMPRESSION: --Partially better headaches with increase of amitriptyline to 50 mg nightly, but still every other day, now apparently predominantly occurring at waking, sleep apnea concern. --December 2019 symptoms of memory worsening, non-refreshing sleep, snoring occasionally per her partner. --March 15, 2021 issue of stiffness of limbs that persists, no change-- not able to relax limbs, limbs getting tired. 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 --Restless leg syndrome is diagnosed by primary care, handled by gabapentin under their management. MEDICATION: She has no other medication changes. Therefore, an addition to amitriptyline 25 mg (or 50 mg transiently) nightly and Austedo: Medication review comparing to list from July 2017: In addition to Austedo 12 mg every 12 hours and Gabapentin now 200 mg every morning 300 mg every evening, metformin: Other medications have not changed per patient, and/or, per review September 19, 2016: naproxen 500 mg twice a day, citalopram 20 mg tablets, 1.5 tabs daily, omeprazole 20 mg capsule once a day, tizanidine 4 mg tablet once or twice a day (3 times a day prescription as needed was (, multivitamin daily, meclizine as needed, simvastatin 20 mg nightly. I was previously mistaken that the patient has a psychiatrist; she does not. There are no anti-dopaminergic medications to make we suggest tardive dyskinesia as a diagnosis for her twitching. There is also a medication for anemia. HEADACHE , DAYTIME TIREDNESS I can output together the January 11, 2020 report of daytime tiredness and occasional snoring at the time, with March 15, 2021 worsening headaches which I now understand occur predominantly in the morning. Perhaps some of her memory issues relate as well. She has not gone for sleep medicine evaluation sleep apnea with my referral January 11, 2020. We discuss repeat referral and she accepts. DATA REVIEW COGNITION Cognivue November 22, 2021, score = 35, classification = cognitively impaired. Across individual probes: cognitive functioning is relatively spared for motion discrimination; Cognitive functioning is least robust for shape discrimination and shape memory as well as letter discrimination. MEMORY Cognivue testing reveals classification is cognitively impaired. This classification is approved by the FDA. This result provides evidence that assisted living is indicated. I believe assisted living is indicated from a neurological context. I will provide my opinion, above on the necessity of assisted living to relevant Administrative personnelas needed For their decision making. Relevance of this situation: Assisted living facilities have told her she is too young. Her son now lives with her and helps with caregiving so she does not feel a pressing need to move forward with assisted living. 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 I have given her contact information [facility] to see if they can be a good connection for her if she wants to move in that direction at some point. She says she has not called them because she does not need their services now. Her boyfriend Mateo and her son are providing sufficient caregiving. I previously asked her to get: B12 studies, thyroid studies, vitamin D. We did not receive results. I did not pursue this further February 2021 and defer to primary care at this point. We have discussed the horizon of Geneva s disease, including once with her significant other present. I think she understands that for thought, planning ahead, for how she might move toward help when she needs it, it is important. To review, her wlsysx-le-ajd has said that she is sometimes stubborn about letting people help. STIFFNESS AND TWITCHING Twitching is better on 15 mg twice daily then on 12 mg twice daily. It is not perfect. She would like to try 18 mg twice daily again. Context: Neurological exam reveals dysrhythmic relatively small finger tapping and foot tapping. Motor dyscontrol may occur with Geneva's disease and perhaps this is the answer. Unfortunately, there is no treatment for Geneva's disease voluntary motor dyscontrol. Meir treats the involuntary dyscontrol of twitching and she is having more twitching. We remember that 18 mg twice daily in the past caused restlessness/akathis ia. Maybe that was restless legs which are now treated with gabapentin and not a side effect of a dose that is too high for her system. I am not confident this is the case. I will be surprised but happy if further helps further increase to 18 mg Further helps her feeling of not being able to relax her limbs and tiredness of her limbs. Ingrezza may also help with the involuntary movements of Geneva's disease and is in reserve. 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 EEG is normal. Brain MRI does not show any obvious striatal atrophy (putamen or caudate). MRI is sensitive late in the disease, but less sensitive for young individuals early in disease. This twitching does not look like simple myoclonus that might accompany Creutzfeldt-Андрей disease. There are no brain MRI changes to suggest Creutzfeldt-Андрей disease. I have no further directions for diagnostic inquiry. Most particularly, Geneva gene evaluation is not an option as insurance have agreed to pay, but there is a co-pay. The patient cannot afford the co-pay. The fact that there is Geneva s disease in her maternal family line but her mother does not have Geneva s disease is somewhat unusual. Reduced penetrance can be seen, however, when there are relatively few (but still abnormally high) CAG repeats in the Mahad gene (Mahad s disease is a triplicate repeat disease). To review, there are other rare directions of inquiry that we are not pursuing: Choices include investigation for autoimmune encephalitis: twitching may be seen in a subset of autoimmune encephalitis etiologies but is usually part of a larger symptom complex and her symptoms do not suggest, for instance, neuromyotonia (Luis Felipe s syndrome). However, I could consider auto antibody testing at a future follow-up. She may not be able to afford the copayment for this either. There are treatments for some autoimmune encephalitides, steroids first and then more helpful immunomodulatory medication. PLAN [facility] November 22, 2021 HEADACHES AND SLEEP You have worsening headaches in the morning and you snore, therefore, I am referring you to sleep medicine to look for sleep apnea: They have called you but you are out and you have forgotten to call back. Please call them back at your earliest convenience using the information below: [place] [address] The sleep medicine facility should call you within a few days. If they do not call within a week, please call them to understand when you will be scheduled for your imaging. If there is any uncertainty or confusion, please call us to help clarify things. 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 New prescription last sent November 22, 2021 With refills for 11 months FOR RESTLESS LEGS Continue, under management of primary care: Gabapentin 100 mg capsules 2 capsules every morning 3 capsules every evening. SAFETY NET FOR FORGETFULNESS Because we you have memory problems, we have agreed: Your significant other, Mateo will continue to watch over your medication organizer to make sure that you don't make a mistake that might cause harm, especially with new diagnosis of diabetes as missing medication for diabetes could cause significant harm fairly quickly. Mateo will continue to help you with any financial matters to prevent mistakes in this direction. Please allow Mateo or [employer] transportation service to provide necessary transportation (medical appointments; shopping). Follow-up in 2 months to understand how the higher dose of Austedo helped and to understand how referral to sleep medicine is going Mark Figueroa MD, PhD [facility] Not available 11/22/2021 15:13:08 01/01/2023 01/01/2023 IMPRESSION: --Partially better headaches with increase of amitriptyline to 50 mg nightly, early 2021, but still every other day, early 2021 predominantly occurring at waking, sleep apnea diagnosed late 2021 by sleep medicine. --December 2019 symptoms of memory worsening, non-refreshing sleep, snoring occasionally per her partner. --March 15, 2021 issue of stiffness of limbs that persists, no change-- not able to relax limbs, limbs getting tired. 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 December 2022 twitching better but not optimal o autedo 18 mg bid --Restless leg syndrome is diagnosed by primary care, handled by gabapentin under their management. We agree that we will increase the Austedo up to 21 mg twice daily as she is having no side effects yet suboptimal benefit on 18 mg twice daily. 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 I am not certain about this and her presentation is not typical from the behavioral aspect there does not seem to be the behavioral dysregulation. We can go over this and more detail at another follow-up and discuss what I might be able to say to whoever needs this to be sent. She understands and will think about a follow-up to focus on this. She also wishes to increase headache medication. We cannot change to medications at once. Additionally, I cannot say how much her headaches will improve after she focuses on her sleep apnea. We will give her the phone number of the sleep medicine folks again. MEDICATION: November 2021 review: She has no other medication changes. Therefore, an addition to amitriptyline 25 mg (or 50 mg transiently) nightly and Austedo: Medication review comparing to list from July 2017: In addition to Austedo 12 mg every 12 hours and Gabapentin now 200 mg every morning 300 mg every evening, metformin: Other medications have not changed per patient, and/or, per review September 19, 2016: naproxen 500 mg twice a day, citalopram 20 mg tablets, 1.5 tabs daily, omeprazole 20 mg capsule once a day, tizanidine 4 mg tablet once or twice a day (3 times a day prescription as needed was (, multivitamin daily, meclizine as needed, simvastatin 20 mg nightly. I was previously mistaken that the patient has a psychiatrist; she does not. There are no anti-dopaminergic medications to make we suggest tardive dyskinesia as a diagnosis for her twitching. There is also a medication for anemia. HEADACHE , DAYTIME TIREDNESS I can output together the January 11, 2020 report of daytime tiredness and occasional snoring at the time, with March 15, 2021 worsening headaches which I now understand occur predominantly in the morning. Perhaps some of her memory issues relate as well. She has not gone for sleep medicine evaluation sleep apnea with my referral January 11, 2020. We discuss repeat referral and she accepts. DATA REVIEW COGNITION Cognivue November 22, 2021, score = 35, classification = cognitively impaired. Across individual probes: cognitive functioning is relatively spared for motion discrimination; Cognitive functioning is least robust for shape discrimination and shape memory as well as letter discrimination. MEMORY Cognivue testing reveals classification is cognitively impaired. This classification is approved by the FDA. This result provides evidence that assisted living is indicated. I believe assisted living is indicated from a neurological context. I will provide my opinion, above on the necessity of assisted living to relevant Administrative personnelas needed For their decision making. Relevance of this situation: Assisted living facilities have told her she is too young. Her son now lives with her and helps with caregiving so she does not feel a pressing need to move forward with assisted living. 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 I have given her contact information [facility] to see if they can be a good connection for her if she wants to move in that direction at some point. She says she has not called them because she does not need their services now. Her boyfriend Mateo and her son are providing sufficient caregiving. I previously asked her to get: B12 studies, thyroid studies, vitamin D. We did not receive results. I did not pursue this further February 2021 and defer to primary care at this point. We have discussed the horizon of Geneva s disease, including once with her significant other present. I think she understands that for thought, planning ahead, for how she might move toward help when she needs it, it is important. To review, her xhlffn-go-lna has said that she is sometimes stubborn about letting people help. STIFFNESS AND TWITCHING Twitching is better on 15 mg twice daily then on 12 mg twice daily. It is not perfect. She would like to try 18 mg twice daily again. Context: Neurological exam reveals dysrhythmic relatively small finger tapping and foot tapping. Motor dyscontrol may occur with Geneva's disease and perhaps this is the answer. Unfortunately, there is no treatment for Geneva's disease voluntary motor dyscontrol. Meir treats the involuntary dyscontrol of twitching and she is having more twitching. We remember that 18 mg twice daily in the past caused restlessness/akathis ia. Maybe that was restless legs which are now treated with gabapentin and not a side effect of a dose that is too high for her system. I am not confident this is the case. I will be surprised but happy if further helps further increase to 18 mg Further helps her feeling of not being able to relax her limbs and tiredness of her limbs. Ingrezza may also help with the involuntary movements of Geneva's disease and is in reserve. 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 EEG is normal. Brain MRI does not show any obvious striatal atrophy (putamen or caudate). MRI is sensitive late in the disease, but less sensitive for young individuals early in disease. This twitching does not look like simple myoclonus that might accompany Creutzfeldt-Андрей disease. There are no brain MRI changes to suggest Creutzfeldt-Андрей disease. I have no further directions for diagnostic inquiry. Most particularly, Geneva gene evaluation is not an option as insurance have agreed to pay, but there is a co-pay. The patient cannot afford the co-pay. The fact that there is Mahad s disease in her maternal family line but her mother does not have Geneva s disease is somewhat unusual. Reduced penetrance can be seen, however, when there are relatively few (but still abnormally high) CAG repeats in the Geneva gene (Geneva s disease is a triplicate repeat disease). To review, there are other rare directions of inquiry that we are not pursuing: Choices include investigation for autoimmune encephalitis: twitching may be seen in a subset of autoimmune encephalitis etiologies but is usually part of a larger symptom complex and her symptoms do not suggest, for instance, neuromyotonia (Luis Felipe s syndrome). However, I could consider auto antibody testing at a future follow-up. She may not be able to afford the copayment for this either. There are treatments for some autoimmune encephalitides, steroids first and then more helpful immunomodulatory medication. PLAN [facility] January 01, 2023 HEADACHES AND SLEEP You have worsening headaches in the morning and you snore, therefore, I am referring you to sleep medicine to look for sleep apnea: They have called you but you are out and you have forgotten to call back. Please call them back at your earliest convenience using the information below: [place] [address] The sleep medicine facility should call you within a few days. If they do not call within a week, please call them to understand when you will be scheduled for your imaging. If there is any uncertainty or confusion, please call us to help clarify things. 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 New prescription last sent November 22, 2021 With refills for 11 months FOR RESTLESS LEGS Continue, under management of primary care: Gabapentin 100 mg capsules 2 capsules every morning 3 capsules every evening. SAFETY NET FOR FORGETFULNESS Because we you have memory problems, we have agreed: Your significant other, Mateo will continue to watch over your medication organizer to make sure that you don't make a mistake that might cause harm, especially with new diagnosis of diabetes as missing medication for diabetes could cause significant harm fairly quickly. Mateo will continue to help you with any financial matters to prevent mistakes in this direction. Please allow Mateo or [employer] transportation service to provide necessary transportation (medical appointments; shopping). Follow-up in 2 months to understand how the higher dose of Austedo helped and to understand how referral to sleep medicine is going Mark Figueroa MD, PhD [facility] Not available 01/01/2023 12:46:51 03/04/2023 03/04/2023 IMPRESSION: --Partially better headaches with increase of amitriptyline to 50 mg nightly, early 2021, but still every other day, early 2021 predominantly occurring at waking, sleep apnea diagnosed late 2021 by sleep medicine. --December 2019 symptoms of memory worsening, non-refreshing sleep, snoring occasionally per her partner. --March 15, 2021 issue of stiffness of limbs that persists, no change-- not able to relax limbs, limbs getting tired. 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 --December 2022 twitching better but not optimal o autedo 18 mg bid -- Austedo 21mg bid small incremental benefit, and new action tremor. --Restless leg syndrome is diagnosed by primary care, handled by gabapentin under their management. Tremor may be a side effect of Austedo, with some reports in the literature that this is a result of parkinsonism induced by Austedo and a sufficiently high dose. We will reduce Austedo back down to 80 mg twice daily. We will get thyroid studies to make sure hypothyroidism is not involved. Patient is disappointed that we cannot raise amitriptyline from 50 mg daily today to help her headaches more but I counseled we can only do one thing at a time and it is important to remove any side effects from Austedo that are causing her significant problems such as this tremor if it is a side effect. >>>>>>>>>>>January 01, 2023 We agree that we will increase the Austedo up to 21 mg twice daily as she is having no side effects yet suboptimal benefit on 18 mg twice daily. 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 I am not certain about this and her presentation is not typical from the behavioral aspect there does not seem to be the behavioral dysregulation. We can go over this and more detail at another follow-up and discuss what I might be able to say to whoever needs this to be sent. She understands and will think about a follow-up to focus on this. She also wishes to increase headache medication. We cannot change to medications at once. Additionally, I cannot say how much her headaches will improve after she focuses on her sleep apnea. We will give her the phone number of the sleep medicine folks again. MEDICATION: November 2021 review: She has no other medication changes. Therefore, an addition to amitriptyline 25 mg (or 50 mg transiently) nightly and Austedo: Medication review comparing to list from July 2017: In addition to Austedo 12 mg every 12 hours and Gabapentin now 200 mg every morning 300 mg every evening, metformin: Other medications have not changed per patient, and/or, per review September 19, 2016: naproxen 500 mg twice a day, citalopram 20 mg tablets, 1.5 tabs daily, omeprazole 20 mg capsule once a day, tizanidine 4 mg tablet once or twice a day (3 times a day prescription as needed was (, multivitamin daily, meclizine as needed, simvastatin 20 mg nightly. I was previously mistaken that the patient has a psychiatrist; she does not. There are no anti-dopaminergic medications to make we suggest tardive dyskinesia as a diagnosis for her twitching. There is also a medication for anemia. HEADACHE , DAYTIME TIREDNESS I can output together the January 11, 2020 report of daytime tiredness and occasional snoring at the time, with March 15, 2021 worsening headaches which I now understand occur predominantly in the morning. Perhaps some of her memory issues relate as well. She has not gone for sleep medicine evaluation sleep apnea with my referral January 11, 2020. We discuss repeat referral and she accepts. DATA REVIEW COGNITION Cognivue November 22, 2021, score = 35, classification = cognitively impaired. Across individual probes: cognitive functioning is relatively spared for motion discrimination; Cognitive functioning is least robust for shape discrimination and shape memory as well as letter discrimination. MEMORY Cognivue testing reveals classification is cognitively impaired. This classification is approved by the FDA. This result provides evidence that assisted living is indicated. I believe assisted living is indicated from a neurological context. I will provide my opinion, above on the necessity of assisted living to relevant Administrative personnelas needed For their decision making. Relevance of this situation: Assisted living facilities have told her she is too young. Her son now lives with her and helps with caregiving so she does not feel a pressing need to move forward with assisted living. 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 I have given her contact information [facility] to see if they can be a good connection for her if she wants to move in that direction at some point. She says she has not called them because she does not need their services now. Her boyfriend Mateo and her son are providing sufficient caregiving. I previously asked her to get: B12 studies, thyroid studies, vitamin D. We did not receive results. I did not pursue this further February 2021 and defer to primary care at this point. We have discussed the horizon of Geneva s disease, including once with her significant other present. I think she understands that for thought, planning ahead, for how she might move toward help when she needs it, it is important. To review, her uodarr-uh-nek has said that she is sometimes stubborn about letting people help. STIFFNESS AND TWITCHING Twitching is better on 15 mg twice daily then on 12 mg twice daily. It is not perfect. She would like to try 18 mg twice daily again. Context: Neurological exam reveals dysrhythmic relatively small finger tapping and foot tapping. Motor dyscontrol may occur with Geneva's disease and perhaps this is the answer. Unfortunately, there is no treatment for Geneva's disease voluntary motor dyscontrol. Meir treats the involuntary dyscontrol of twitching and she is having more twitching. We remember that 18 mg twice daily in the past caused restlessness/akathis ia. Maybe that was restless legs which are now treated with gabapentin and not a side effect of a dose that is too high for her system. I am not confident this is the case. I will be surprised but happy if further helps further increase to 18 mg Further helps her feeling of not being able to relax her limbs and tiredness of her limbs. Ingrezza may also help with the involuntary movements of Mahad's disease and is in reserve. 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 EEG is normal. Brain MRI does not show any obvious striatal atrophy (putamen or caudate). MRI is sensitive late in the disease, but less sensitive for young individuals early in disease. This twitching does not look like simple myoclonus that might accompany Creutzfeldt-Андрей disease. There are no brain MRI changes to suggest Creutzfeldt-Андрей disease. I have no further directions for diagnostic inquiry. Most particularly, Mahad gene evaluation is not an option as insurance have agreed to pay, but there is a co-pay. The patient cannot afford the co-pay. The fact that there is Geneva s disease in her maternal family line but her mother does not have Geneva s disease is somewhat unusual. Reduced penetrance can be seen, however, when there are relatively few (but still abnormally high) CAG repeats in the Geneva gene (Mahad s disease is a triplicate repeat disease). To review, there are other rare directions of inquiry that we are not pursuing: Choices include investigation for autoimmune encephalitis: twitching may be seen in a subset of autoimmune encephalitis etiologies but is usually part of a larger symptom complex and her symptoms do not suggest, for instance, neuromyotonia (Luis Felipe s syndrome). However, I could consider auto antibody testing at a future follow-up. She may not be able to afford the copayment for this either. There are treatments for some autoimmune encephalitides, steroids first and then more helpful immunomodulatory medication. PLAN [facility] March 04, 2023 HEADACHES AND SLEEP You have worsening headaches in the morning and you snore, therefore, (September 20, 2022 referral): I am referring you to sleep medicine to look for sleep apnea: They have called you but you are out and you have forgotten to call back. Please call them back at your earliest convenience using the information below: [place] [address] The sleep medicine facility should call you within a few days. If they do not call within a week, please call them to understand when you will be scheduled for your imaging. If there is any uncertainty or confusion, please call us to help clarify things. 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 FOR RESTLESS LEGS Continue, under management of primary care: Gabapentin 100 mg capsules 2 capsules every morning 3 capsules every evening. SAFETY NET FOR FORGETFULNESS Because we you have memory problems, we have agreed: Your significant other, Mateo will continue to watch over your medication organizer to make sure that you don't make a mistake that might cause harm, especially with new diagnosis of diabetes as missing medication for diabetes could cause significant harm fairly quickly. Mateo will continue to help you with any financial matters to prevent mistakes in this direction. Please allow Mateo or [employer] transportation service to provide necessary transportation (medical appointments; shopping). Follow-up in 3-4 weeks to understand how the lower dose of Austedo helped and to understand how referral to sleep medicine for headaches is going & to consider amitriptyline increase Mark Figueroa MD, PhD [facility] Not available 03/04/2023 14:47:08 Plan of Treatment Reminders Order Date Submit Date Provider Last Modified By Organization Details Last Modified Time Details Appointments None recorded. Lab TSH, serum or plasma - E07.9 [address] ([facility] Only), [address] [place], [address], 3 16:11:36 T4, free, serum - E07.9 [address] ([facility]), [address] [place], [address], 3 16:11:36 Referral sleep medicine referral 2021 022 [email or web address] 1 [facility], [address] [facility] [address], [place], [address], 2 09:55:56 sleep medicine referral 2021 022 [email or web address] 1 [facility], [address] [facility] [address], [place], [address], 2 16:28:50 Procedures None recorded. Surgeries None recorded. Imaging None recorded. Medication Orders Austedo 9 mg tablet 2022 023 [facility] [place], [address], 3 14:32:36 Austedo 9 mg tablet 2022 023 [facility], [address] [place], [address], 3 12:43:23 Austedo 12 mg tablet 2022 023 [facility], [address] [place], [address], 3 14:30:50 amitriptyli ne 50 mg tablet 2022 023 [facility], [address] [place], [address], 3 12:43:17 Austedo 9 mg tablet 2021 022 [facility] [place], [address], 2 15:03:15 Austedo 6 mg tablet 2021 022 [email or web address] 1 [facility], [address] [place], [address], 3 14:51:54 amitriptyli ne 25 mg tablet 2021 022 [facility], [address] [facility], [place], [address], 2 17:07:43 Austedo 12 mg tablet 2020 021 rossana [facility], [address] [facility], [place], [address], 3 14:30:50 amitriptyli ne 25 mg tablet 2020 021 [facility], [address] [facility], [place], [address], 12:27:39 Patient TargetsNo targets recorded. 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 Memory problems are likely to slowly worsen. I have recommended investigation of assisted living. Facilities have told you you are too young. However, you have a disease that causes cognitive slowing at a younger age and I believe that you should be able to have assisted living. [facility] offers a patient care specialist and a nurse analysis manager to help you through the bureaucracy toward moving toward assisted living. 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 Please call them to find out: [facility] [employer] [address] [place] [address] Web: [email or web address] Cognivue testing of cognition Cognivue is a new FDA approved computerized test, 10 minutes in length, consisting of a set of cognitive probes across cognitive domains that was developed by neurologist/neuroscien mary ann team based on cognitive and neurophysiological data over recent decades. 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 Memory problems are likely to slowly worsen. I have recommended investigation of assisted living. Facilities have told you you are too young. However, you have a disease that causes cognitive slowing at a younger age and I believe that you should be able to have assisted living. [facility] offers a patient care specialist and a nurse analysis manager to help you through the bureaucracy toward moving toward assisted living. 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 Please call them to find out: [facility] [employer] [facility]. [address] [place] [address] Web: [email or web address] Cognivue testing of cognition Cognivue is a new FDA approved computerized test, 10 minutes in length, consisting of a set of cognitive probes across cognitive domains that was developed by neurologist/neuroscien mary ann team based on cognitive and neurophysiological data over recent decades. 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 Memory problems are likely to slowly worsen. I have recommended investigation of assisted living. Facilities have told you you are too young. However, you have a disease that causes cognitive slowing at a younger age and I believe that you should be able to have assisted living. [facility] offers a patient care specialist and a nurse analysis manager to help you through the bureaucracy toward moving toward assisted living. 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 Please call them to find out: [facility] [address] [place] [address] Web: [email or web address] Cognivue testing of cognition Cognivue is a new FDA approved computerized test, 10 minutes in length, consisting of a set of cognitive probes across cognitive domains that was developed by neurologist/neuroscien mary ann team based on cognitive and neurophysiological data over recent decades. Cognivue probes at the cognitive perceptive boundary and is thus relatively free of subjective biases that exist from various paper and pencil neuropsychology tests of cognitive functioning Discussion across issues of diagnoses and management and same day associated chart review and management greater than 50% greater than 40 minutes rossana Not available 03/04/2023 14:47:19 Reason for Referral Sleep Medicine Referral for Obstructive sleep apnea syndrome Referring Physician: Mark Figueroa, Neurology, Encounter Date: 09/20/2021 Sleep Medicine Referral for Obstructive sleep apnea syndrome Referring Physician: Mark Figueroa, Neurology, Encounter Date: 11/22/2021 Problems Name Problem SNOMED Code Status Onset Date Resolution Date Notes Provider Name and Address Organization Details Recorded Time 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 Procedures Surgical History Date Name Laterality Status Provider Name and Address Organization Details Recorded Time DATA REVIEW completed Mark Figueroa MD [address] [place], [place] [address]DovPAOLA, [phone], [facility] 03/04/2023 14:20:43 3 Cognivue completed Mark Figueroa MD [address] [place], [place] [address]Dov [place]OLA, [phone], [facility] 03/04/2023 14:20:43 3 DATA REVIEW completed Mark Figueroa MD [address] [place], [place] [address]ToriPatersonPAOLA mcclain, [phone], [facility] 01/01/2023 12:18:23 3 Cognivue completed Mark Figueroa MD [address] [place] [address] PAOLA Monae, [phone], [facility] 01/01/2023 12:18:23 2 DATA REVIEW completed Mark Figueroa MD [address] [place] [address] PAOLA Monae, [phone], [facility] 11/22/2021 14:39:28 2 Cognivue completed Mark Figueroa MD [address] [place], [place] [address]ToriPatersonPAOLA mcclain, [phone], [facility] 11/22/2021 14:50:08 2 DATA REVIEW completed Mark Figueroa MD [address] [place] [address] PAOLA Monae, [phone], [facility] 09/20/2021 16:07:56 1 DATA REVIEW completed Mark Figueroa MD [address] [place] [address] PAOLA Monae, [phone], [facility] 03/15/2021 12:15:51 Imaging Results None recorded. Procedure Notes None recorded. Medical Equipment None Reported. Medications Name Sig Start Date Stop Date Status Note LastModified by Organization Details LastModified Time Prescript ion - Prior Authoriza tion Request active Not Available Not Available Not Available ibuprofen 800 mg tablet active Not Available Not Available Not Available tizanidin e 4 mg tablet active Not Available Not Available Not Available fluconazo le 150 mg tablet active Not Available Not Available Not Available FreeStyle Test strips USE TO TEST BLOOD SUGAR DAILY active Not Available Not Available No t Available medroxypr ogesteron e 2.5 mg tablet active Not Available Not Available Not Available promethaz ine 12.5 mg tablet active Not Available Not Available No t Available ondansetr on HCl 4 mg tablet active Not Available Not Available No t Available glipizide 10 mg tablet active Not Available Not Available Not Available omeprazol e 40 mg capsule,d elayed release active Not Available Not Available Not Available amitripty line 50 mg tablet Take 1 tablet every day by oral route in the evening. active Not Available Not Available No t Available meloxicam 7.5 mg tablet active Not Available Not Available Not Available oxycodone -acetamin ophen 5 mg-325 mg tablet active Not Available Not Available Not Available citalopra m 20 mg tablet active Not Available Not Available Not Available amitripty line 25 mg tablet Take 2 tablets every day by oral route for 30 days. active Not Available Not Available No t Available lorazepam 0.5 mg tablet TAKE 1 TABLET BY MOUTH EVERY 6 HOURS NEEDED active Not Available Not Available No t Available meclizine 25 mg tablet active Not Available Not Available Not Available cephalexi n 500 mg capsule TAKE 1 CAPSULE BY MOUTH EVERY 6 HOURS active Not Available Not Available No t Available simvastat in 20 mg tablet active Not Available Not Available Not Available omeprazol e 20 mg capsule,d elayed release active Not Available Not Available Not Available estradiol 2 mg tablet active Not Available Not Available Not Available ammonium lactate 12 % topical cream active Not Available Not Available Not Available gabapenti n 100 mg capsule active Not Available Not Available Not Available estradiol 0.5 mg tablet active Not Available Not Available Not Available ibuprofen 600 mg tablet TAKE 1 TABLET BY MOUTH 3 TIMES A DAY NEEDED FOR PAIN active Not Available Not Available No t Available methylpre dnisolone 4 mg tablets in a dose pack TAKE 6 TABLETS ON DAY 1 DIRECTED ON PACKAGE AND DECREASE BY 1 TAB EACH DAY FOR A TOTAL OF 6 DAYS active Not Available Not Available No t Available ondansetr on 4 mg disintegr ating tablet active Not Available Not Available Not Available metformin ER 500 mg tablet,ex tended release 24 hr active Not Available Not Available Not Available Prempro 0.625 mg-5 mg tablet active Not Available Not Available Not Available naproxen 500 mg tablet active Not Available Not Available Not Available Ventolin HFA 90 mcg/actua tion aerosol inhaler active Not Available Not Available Not Available Novolog FlexPen U-100 Insulin aspart 100 unit/mL (3 mL) subcutane ous DIERECTE D PER SLIDING SCALE THREE TIMES A DAY BEFORE MEALS, UP TO 25 UNITS A DAY. active Not Available Not Available No t Available Flovent HFA 110 mcg/actua tion aerosol inhaler active Not Available Not Available Not Available Januvia 50 mg tablet active Not Available Not Available Not Available Symbicort 160 mcg-4.5 mcg/actua tion HFA aerosol inhaler active Not Available Not Available Not Available Lantus Solostar U-100 Insulin 100 unit/mL (3 mL) subcutane ous pen INJECT 12 UNITS INTO THE SKIN DAILY. active Not Available Not Available No t Available melatonin 5 mg tablet active Not Available Not Available Not Available OptiChamb er [facility] spacer active Not Available Not Available Not Available UltiCare Pen Needle 32 gauge x 5/32 APPLY ROUTE 4 TIMES DAILY active Not Available Not Available No t Available Myrbetriq 25 mg tablet,ex tended release active Not Available Not Available Not Available Austedo 9 mg tablet active Not Available Not Available No t Available Austedo 12 mg tablet Take 1 tablet twice a day by oral route for 30 days. 03/04 completed tremor emerged with 18->21 mg bid Not Available Not Available Not Available Austedo 6 mg tablet Take 2.5 tablets twice a day by oral route. 07/03 completed Not Available Not Available Not Available Tab-A-Vit e Multivita min w-iron 18 mg-400 mcg tablet active Not Available Not Available Not Available FreeStyle Marlee 2 Sensor kit active Not Available Not Available Not Available FreeStyle Marlee 2 [place] active Not Available Not Available Not Available Vitals None Recorded Social History None recorded. Functional Status None recorded. Mental Status None recorded. Family History Nothing Reported. Medical History No medical history recorded. Gynecological HistoryNo gynecological history recorded. 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 25658394 G25.9 [id number] Mark Figueroa MD [facility] [address] [place] [address] [place] PAOLA [id number] 09/20/2021 15:46:26 09/24/2021 11:29:36 Migraine without aura 80096958 G43.009 Geneva's chorea 5875 6001 G10 Extrapyram idal disease 91339687 G25.9 Obstructiv e sleep apnea syndrome 48503862 G47.33 [id number] Mark Figueroa MD [facility] [address] [place] [address] PRO FINLEYPAOLA MCCLAIN [id number] 11/22/2021 14:21:25 11/22/2021 18:07:08 Migraine without aura 20953873 G43.009 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 Extrapyram idal disease 64857967 G25.9 Obstructiv e sleep apnea syndrome 95536390 G47.33 [id number] Mark Figueroa MD [facility] [address] [place] [address] RPO FINLEYPAOLA MCCLAIN [id number] 01/01/2023 11:35:01 01/01/2023 16:10:14 Migraine without aura 90775558 G43.009 Extrapyram idal disease 67694386 G25.9 Geneva's chorea 5875 6001 G10 [id number] Mark Figueroa MD [facility] [address] [place] [address] PRO FINLEYPAOLA MCCLAIN [id number] 03/04/2023 13:41:16 03/04/2023 17:30:17 Extrapyramidal disease 52906918 G25.9 Geneva's chorea 5875 6001 G10 Health Concerns Section Related Observation LastModified by Organization Detai ls LastModified Time None Recorded Concern Status LastModified by Organization Details LastModified Time None Recorded Advance Directives Directive None Recorded Payers Insurance Date Sequence Insurance Name Policy Number Policy Calzada Covered Member ID Calzada Member ID Guarantor Name 03/04/2023 2 MEDICAID-[place]: [facility] Ninoska Rooney [id number] [facility] 03/04/2023 2 MEDICARE [place]: N[employer] Ninoska A [place] [id number] [facility] 03/10/2023 1 [facility] - DOS ON OR AFTER 2022 - SKILLED NURSING OPTIONS AND ONE CARE (MEDICARE REPLACEMENT/ADV ANTAGE - PPO) Ninoska A [place] [id number] [facility] Notes Date Note Type Note Provider Name and Address Organization Details Recorded Time 03/15/2021 text/html OLDFollow up of twitching. She is accompanied by Mateo, her boyfriend, who provide support. Not here: [id number], Sujata. Since January 11, 2020 neurology follow-up encounter, 1 year and 2 months ago, she has started getting headaches, headaches almost every day. This started happening perhaps 1 or 2 months ago. There was no trauma. There were no changes to stressors. She is still together with her boyfriend and things are going well with him. At some point she tried to go up from amitriptyline 25 mg up to 50 mg. This made her run out of medication. She has gotten a refill recently. When she is on 50 mg this works better. She cannot say how much better. She has no side effects on amitriptyline 50 mg. She wonders about going up to 75 mg.Her abnormal movements remain absent with Austedo 12 mg twice a day and she remains without side effects from this medication.However, she has been feeling difficulty moving her arms and legs, they feel stiff.She still feels some memory problems but they are not bothering her these days. There has been no worsening since January 11, 2020 when she was concerned about forgetfulness.She has had no new medical diagnoses. She has had no changes in medications other than her change of amitriptyline until she ran out. Interim history is reviewed from January 11, 2020 neurology follow-up encounter:Since May 05, 2020 neurology follow-up encounter, she continues on Austedo for her twitching, which is doing okay, she still twitches, but not a lot. Her headaches are fine on amitriptyline 25 mg nightly, started March 04, 2019. It still makes her a little tired in the evening and this is still fine as it helps her get to sleep. She sleeps a lot, through the night, and doesnt wake until 10 AM but still doesnt feel rested. Her significant other seizures that she snores occasionally and snorts occasionally, not a lot. Her memory has worsened. She might tell her significant other she will make breakfast but then reached a cabinet and forget why she went there. She might forget Later, water or food for her cat. She might forget her medications but her significant other monitors this and reminds her, and more generally backs her up on things were her memory falters. He notices forgetfulness worsening in recent times. Her mood is good. Gabapentin 200 morning/300 every afternoon from primary care continues to help restless legs. She continues on metformin for diabetes. She has no new medical conditions or medication changes. Presenting symptoms are reviewed from April 15, 2016 initial neurology consultation: In early 2015 about 2 months ago, she began noticing brief twitches in her body. She describes 2 kinds but they may happen together. One description she describes by showing her shoulders jerk upwards with a brief myoclonic character. She says she feels this jerk not just in her shoulders but throughout her whole body. The other type involves 2 or 3 jerks in succession with her neck turning either to the left or to the right in 1-2 seconds. She notes that she occasionally wakes up in the middle of the night with a whole body jerk. The only other body movements she describes is a tremor of right or left hand, equally, that she has had with reaching or holding objects for many years. This was unchanged until it seems to have started to get worse in early summer 2015.She walks normally. A twitch can happen any time, lying down and sitting or standing, but it does not disturb her gait. She has no new pain. She started no new medications around the time that her twitches began. She has a long history of chronic back pain for which she takes tizanidine. It is slowly worsening over the years, but not especially since early summer 2015. She takes no opiates. She notes that Huntingtons disease runs in her familyher maternal grandfather and her uncle. Her mother, who is 70 years old, has no symptoms of this condition. Mark Figueroa MD [address] [place] [address] [place], [phone], [facility] 03/15/2021 12:53:05 09/20/2021 text/html Follow up of twitching. She is accompanied by Mateo, her boyfriend, who provide support. Not here: [id number], Sujata. Since March 15, 2021 neurology follow-up encounter, her headaches have continued. They are about every other day and mostly at waking. Sometimes they go away with ibuprofen. Sometimes they persist despite ibuprofen up to three times a day. Her partner says that she snores.Her stiffness in her arms and legs that she brought up for the first time February 2021 continues. It has not changed for the better or for the worse. It is daily, continuous, and does not fluctuate throughout the day. It makes her tired with tasks with her arms and with walking. It does not bother her fine motor movements with her hands although her arms get tired when she does this. It makes it hard for her to get to sleep.Her body twitching that she uses Austedo to treat has worsened for the first time in a long time. Although there had been breakthrough previously, it had been mild and not bothersome. It is now bothersome.Her forgetfulness seems to be worsening. She forgets to turn off the stove or to get her toast out of the oven. Her significant other, Mateo continues with his safety net, watching over her medications and finances and doing all of the driving. They have looked into assisted living but they have been told that she is too young. However, her son has moved in with them and is helping with caregiving so she does not feel an immediate need. Interim history is reviewed from January 11, 2020 neurology follow-up encounter:Since May 05, 2020 neurology follow-up encounter, she continues on Austedo for her twitching, which is doing okay, she still twitches, but not a lot. Her headaches are fine on amitriptyline 25 mg nightly, started March 04, 2019. It still makes her a little tired in the evening and this is still fine as it helps her get to sleep. She sleeps a lot, through the night, and doesnt wake until 10 AM but still doesnt feel rested. Her significant other seizures that she snores occasionally and snorts occasionally, not a lot. Her memory has worsened. She might tell her significant other she will make breakfast but then reached a cabinet and forget why she went there. She might forget Later, water or food for her cat. She might forget her medications but her significant other monitors this and reminds her, and more generally backs her up on things were her memory falters. He notices forgetfulness worsening in recent times. Her mood is good. Gabapentin 200 morning/300 every afternoon from primary care continues to help restless legs. She continues on metformin for diabetes. She has no new medical conditions or medication changes. Presenting symptoms are reviewed from April 15, 2016 initial neurology consultation: In early 2015 about 2 months ago, she began noticing brief twitches in her body. She describes 2 kinds but they may happen together. One description she describes by showing her shoulders jerk upwards with a brief myoclonic character. She says she feels this jerk not just in her shoulders but throughout her whole body. The other type involves 2 or 3 jerks in succession with her neck turning either to the left or to the right in 1-2 seconds. She notes that she occasionally wakes up in the middle of the night with a whole body jerk. The only other body movements she describes is a tremor of right or left hand, equally, that she has had with reaching or holding objects for many years. This was unchanged until it seems to have started to get worse in early summer 2015.She walks normally. A twitch can happen any time, lying down and sitting or standing, but it does not disturb her gait. She has no new pain. She started no new medications around the time that her twitches began. She has a long history of chronic back pain for which she takes tizanidine. It is slowly worsening over the years, but not especially since early summer 2015. She takes no opiates. She notes that Huntingtons disease runs in her familyher maternal grandfather and her uncle. Her mother, who is 70 years old, has no symptoms of this condition. aMrk Figueroa MD [address] [place] [address] [place], [phone], [facility] 09/20/2021 17:40:01 11/22/2021 text/html Follow up of twitching. She is accompanied by Mateo, her boyfriend, who provide support. Not here: [email or web address], Sujata. Since September 20, 2021 neurology follow-up encounter, her problems with cognition, she has increased Austedo from 12 mg twice a day to 50 mg twice a day. She has no side effects. Her limbs are more relaxed and less tired. They still have some tiredness and are not completely relaxed. We did not discuss stiffness in her arms and legs that she first brought up February 2021, daily, continuous without fluctuation. I will asked next time as I believe this might correlate with her feeling of tiredness along with the correlation with the twitching.Her cognition is unchanged, she still feels forgetful. Yet, she feels that caregiving she is getting is sufficient from her boyfriend Mateo as well as from her son who moved in at some point between February 2021 and August 2021. To review, in August 2021 she reported worsening forgetfulness: She forgets to turn off the stove or to get her toast out of the oven. Her significant other, Mateo continues with his safety net, watching over her medications and finances and doing all of the driving. They have looked into assisted living but they have been told that she is too young. She has not called [facility] to try to help coordinate this because she feels that caregiving is sufficient.Her snoring and tiredness in the morning along with morning headaches history continue. She got a call from sleep medicine but she was out. She has forgotten to return the call. Interim history is reviewed from January 11, 2020 neurology follow-up encounter:Since May 05, 2020 neurology follow-up encounter, she continues on Austedo for her twitching, which is doing okay, she still twitches, but not a lot. Her headaches are fine on amitriptyline 25 mg nightly, started March 04, 2019. It still makes her a little tired in the evening and this is still fine as it helps her get to sleep. She sleeps a lot, through the night, and doesnt wake until 10 AM but still doesnt feel rested. Her significant other seizures that she snores occasionally and snorts occasionally, not a lot. Her memory has worsened. She might tell her significant other she will make breakfast but then reached a cabinet and forget why she went there. She might forget Later, water or food for her cat. She might forget her medications but her significant other monitors this and reminds her, and more generally backs her up on things were her memory falters. He notices forgetfulness worsening in recent times. Her mood is good. Gabapentin 200 morning/300 every afternoon from primary care continues to help restless legs. She continues on metformin for diabetes. She has no new medical conditions or medication changes. Presenting symptoms are reviewed from April 15, 2016 initial neurology consultation: In early 2015 about 2 months ago, she began noticing brief twitches in her body. She describes 2 kinds but they may happen together. One description she describes by showing her shoulders jerk upwards with a brief myoclonic character. She says she feels this jerk not just in her shoulders but throughout her whole body. The other type involves 2 or 3 jerks in succession with her neck turning either to the left or to the right in 1-2 seconds. She notes that she occasionally wakes up in the middle of the night with a whole body jerk. The only other body movements she describes is a tremor of right or left hand, equally, that she has had with reaching or holding objects for many years. This was unchanged until it seems to have started to get worse in early summer 2015.She walks normally. A twitch can happen any time, lying down and sitting or standing, but it does not disturb her gait. She has no new pain. She started no new medications around the time that her twitches began. She has a long history of chronic back pain for which she takes tizanidine. It is slowly worsening over the years, but not especially since early summer 2015. She takes no opiates. She notes that Huntingtons disease runs in her familyher maternal grandfather and her uncle. Her mother, who is 70 years old, has no symptoms of this condition. Mark Figueroa MD [address] [place] [address] [place], [phone], [facility] 11/22/2021 15:18:09 01/01/2023 text/html Follow up of twitching. She is accompanied by Mateo, her boyfriend, who provide support. Not here: [id number], Sujata. Since November 22, 2021 neurology follow-up encounter, 1 year and 1.5 months ago, she found the increased dosage of Austedo from 15 mg twice a day up to 18 mg twice a day beneficial, especially for the abnormal movements of her arms. Its not quite enough, however and she would like to increase. She has no side effects. Amitriptyline continues to help for her headaches but not quite enough. She has run out recently. She went to sleep medicine and they said she has sleep apnea that can be treated. She has lost the phone number to call them to continue her follow-up with them. >>>>>>>>>>>>>>>>>Kia ne ince September 20, 2021 neurology follow-up encounter, her problems with cognition, she has increased Austedo from 12 mg twice a day to 50 mg twice a day. She has no side effects. Her limbs are more relaxed and less tired. They still have some tiredness and are not completely relaxed. We did not discuss stiffness in her arms and legs that she first brought up February 2021, daily, continuous without fluctuation. I will asked next time as I believe this might correlate with her feeling of tiredness along with the correlation with the twitching.Her cognition is unchanged, she still feels forgetful. Yet, she feels that caregiving she is getting is sufficient from her boyfriend Mateo as well as from her son who moved in at some point between February 2021 and August 2021. To review, in August 2021 she reported worsening forgetfulness: She forgets to turn off the stove or to get her toast out of the oven. Her significant other, Mateo continues with his safety net, watching over her medications and finances and doing all of the driving. They have looked into assisted living but they have been told that she is too young. She has not called [facility] to try to help coordinate this because she feels that caregiving is sufficient.Her snoring and tiredness in the morning along with morning headaches history continue. She got a call from sleep medicine but she was out. She has forgotten to return the call. Interim history is reviewed from January 11, 2020 neurology follow-up encounter:Since May 05, 2020 neurology follow-up encounter, she continues on Austedo for her twitching, which is doing okay, she still twitches, but not a lot. Her headaches are fine on amitriptyline 25 mg nightly, started March 04, 2019. It still makes her a little tired in the evening and this is still fine as it helps her get to sleep. She sleeps a lot, through the night, and doesnt wake until 10 AM but still doesnt feel rested. Her significant other seizures that she snores occasionally and snorts occasionally, not a lot. Her memory has worsened. She might tell her significant other she will make breakfast but then reached a cabinet and forget why she went there. She might forget Later, water or food for her cat. She might forget her medications but her significant other monitors this and reminds her, and more generally backs her up on things were her memory falters. He notices forgetfulness worsening in recent times. Her mood is good. Gabapentin 200 morning/300 every afternoon from primary care continues to help restless legs. She continues on metformin for diabetes. She has no new medical conditions or medication changes. Presenting symptoms are reviewed from April 15, 2016 initial neurology consultation: In early 2015 about 2 months ago, she began noticing brief twitches in her body. She describes 2 kinds but they may happen together. One description she describes by showing her shoulders jerk upwards with a brief myoclonic character. She says she feels this jerk not just in her shoulders but throughout her whole body. The other type involves 2 or 3 jerks in succession with her neck turning either to the left or to the right in 1-2 seconds. She notes that she occasionally wakes up in the middle of the night with a whole body jerk. The only other body movements she describes is a tremor of right or left hand, equally, that she has had with reaching or holding objects for many years. This was unchanged until it seems to have started to get worse in early summer 2015.She walks normally. A twitch can happen any time, lying down and sitting or standing, but it does not disturb her gait. She has no new pain. She started no new medications around the time that her twitches began. She has a long history of chronic back pain for which she takes tizanidine. It is slowly worsening over the years, but not especially since early summer 2015. She takes no opiates. She notes that Huntingtons disease runs in her familyher maternal grandfather and her uncle. Her mother, who is 70 years old, has no symptoms of this condition. Mark Figueroa MD [address] [place] [address] [place], [phone], [facility] 01/01/2023 12:47:29 03/04/2023 text/html Follow up of twitching. She is accompanied by Mateo, her boyfriend, who provide support. Not here: [id number], Sujata. >>>>>>>>>>>>>>>>> Septemer 2022Since January 01, 2023 neurology follow-up encounter, she has increased Austedo 14 mg twice a day up to 21 mg twice a day. It has helped reduce the twitching in her upper extremities. She is not as definitive about the benefit as she was previously with the 15 mg - 18 mg increase. She estimates that the benefit is only a little, ~20%.Moreover, at some point after she increased Austedo and noticed this small benefit, she began noticing tremoring in both arms when she raise the arms or used her arms/hands and daily activities. This is bothering her significantly.She has had no other medication changes.Headaches continue to be a problem, with amitriptyline 50 mg daily helping but not quite enough. We did not discuss how she is doing pursuing the possibility of sleep apnea or whether restless legs were still sufficiently well treated by gabapentin from primary care. >>>>>>>>>>>>>>>>>Kia valle 2022Since November 22, 2021 neurology follow-up encounter, 1 year and 1.5 months ago, she found the increased dosage of Austedo from 15 mg twice a day up to 18 mg twice a day beneficial, especially for the abnormal movements of her arms. Its not quite enough, however and she would like to increase. She has no side effects. Amitriptyline continues to help for her headaches but not quite enough. She has run out recently. She went to sleep medicine and they said she has sleep apnea that can be treated. She has lost the phone number to call them to continue her follow-up with them. >>>>>>>>>>>>>>>>>Kia segura ince September 20, 2021 neurology follow-up encounter, her problems with cognition, she has increased Austedo from 12 mg twice a day to 50 mg twice a day. She has no side effects. Her limbs are more relaxed and less tired. They still have some tiredness and are not completely relaxed. We did not discuss stiffness in her arms and legs that she first brought up February 2021, daily, continuous without fluctuation. I will asked next time as I believe this might correlate with her feeling of tiredness along with the correlation with the twitching.Her cognition is unchanged, she still feels forgetful. Yet, she feels that caregiving she is getting is sufficient from her boyfriend Mateo as well as from her son who moved in at some point between February 2021 and August 2021. To review, in August 2021 she reported worsening forgetfulness: She forgets to turn off the stove or to get her toast out of the oven. Her significant other, Mateo continues with his safety net, watching over her medications and finances and doing all of the driving. They have looked into assisted living but they have been told that she is too young. She has not called [facility] to try to help coordinate this because she feels that caregiving is sufficient.Her snoring and tiredness in the morning along with morning headaches history continue. She got a call from sleep medicine but she was out. She has forgotten to return the call. Interim history is reviewed from January 11, 2020 neurology follow-up encounter:Since May 05, 2020 neurology follow-up encounter, she continues on Austedo for her twitching, which is doing okay, she still twitches, but not a lot. Her headaches are fine on amitriptyline 25 mg nightly, started March 04, 2019. It still makes her a little tired in the evening and this is still fine as it helps her get to sleep. She sleeps a lot, through the night, and doesnt wake until 10 AM but still doesnt feel rested. Her significant other seizures that she snores occasionally and snorts occasionally, not a lot. Her memory has worsened. She might tell her significant other she will make breakfast but then reached a cabinet and forget why she went there. She might forget Later, water or food for her cat. She might forget her medications but her significant other monitors this and reminds her, and more generally backs her up on things were her memory falters. He notices forgetfulness worsening in recent times. Her mood is good. Gabapentin 200 morning/300 every afternoon from primary care continues to help restless legs. She continues on metformin for diabetes. She has no new medical conditions or medication changes. Presenting symptoms are reviewed from April 15, 2016 initial neurology consultation: In early 2015 about 2 months ago, she began noticing brief twitches in her body. She describes 2 kinds but they may happen together. One description she describes by showing her shoulders jerk upwards with a brief myoclonic character. She says she feels this jerk not just in her shoulders but throughout her whole body. The other type involves 2 or 3 jerks in succession with her neck turning either to the left or to the right in 1-2 seconds. She notes that she occasionally wakes up in the middle of the night with a whole body jerk. The only other body movements she describes is a tremor of right or left hand, equally, that she has had with reaching or holding objects for many years. This was unchanged until it seems to have started to get worse in early summer 2015.She walks normally. A twitch can happen any time, lying down and sitting or standing, but it does not disturb her gait. She has no new pain. She started no new medications around the time that her twitches began. She has a long history of chronic back pain for which she takes tizanidine. It is slowly worsening over the years, but not especially since early summer 2015. She takes no opiates. She notes that Huntingtons disease runs in her familyher maternal grandfather and her uncle. Her mother, who is 70 years old, has no symptoms of this condition. Mark Figueroa MD [address] [place] [address] [place], [phone], [facility] 03/04/2023 14:47:34 OBGyn Episode No OBEpisode recorded.
--- OUTSIDE RECORDS SUMMARY | 2025-01-12 13:26 | XMS_ITS ---
Author Name [facility] Organization Unknown History of Medication Use Medication Directions Dispensed Refills Start Date End Date Stat Lactobacillus acidophilus capsule Take 1 capsule by mouth 2 (two) times a day. 12/16/2024 active omeprazole (PriLOSEC) [address] capsule Take 1 capsule (40 mg total) by mouth 2 (two) times a day before meals. Do not crush or chew. 12/16/2024 active diclofenac (VOLTAREN) 1 % topical gel Apply 2 g topically 2 (two) times a day if needed (backache). 11/12/2024 active gabapentin (NEURONTIN) 100 mg capsule Take 2 Capsules by mouth every morning AND 3 Capsules at bedtime. 11/12/2024 active nortriptyline (PAMELOR) 10 mg capsule TAKE 2 CAPSULES BY MOUTH EVERY DAY AT BEDTIME 11/10/2024 active glipiZIDE (GLUCOTROL) 10 mg tablet TAKE 1 TABLET BY MOUTH EVERY DAY 11/03/2024 active insulin glargine (Lantus Solostar U-100 Insulin) 100 unit/mL (3 mL) injection pen INJECT 50 UNITS INTO THE SKIN AT BEDTIME 11/03/2024 active citalopram (CeleXA) 40 mg tablet TAKE 1 TABLET BY MOUTH EVERY DAY 10/29/2024 active Januvia 50 mg tablet TAKE 1 TABLET BY MOUTH EVERY DAY 10/27/2024 active dicyclomine (BENTYL) 10 mg capsule Take 1 capsule (10 mg total) by mouth 3 (three) times a day if needed (abdominal pain/spasm). 10/13/2024 active psyllium (Metamucil, with sugar,) 3.4 gram packet Take 1 packet by mouth 2 (two) times a day. Mix and drink with at least 8 ounces of water or juice. 10/13/2024 active estradioL (ESTRACE) 0.01 % (0.1 mg/gram) vaginal cream Please use 0.5g (a pea-sized or blueberry-sized amount) on your finger and place inside vagina fr 2 wks at night on mon & thurs. Finger will be more gentle than applicator. 10/08/2024 active insulin aspart (NovoLOG Flexpen U-100 Insulin) 100 unit/mL (3 mL) injection pen Inject up to 12 units into the skin 3 times a day 10/07/2024 active estradioL (ESTRACE) 0.5 mg tablet @@TAKE 1 TABLET BY MOUTH DAILY. 10/04/2024 active medroxyPROGESTERone (PROVERA) 2.5 mg tablet @@TAKE 1 TABLET BY MOUTH DAILY. 10/04/2024 active fluticasone-umeclidinium- vilanterol (TRELEGY ELLIPTA) 200-62.5-25 mcg inhaler Inhale 1 puff (200 mcg total) by mouth 1 (one) time each day. 09/21/2024 active melatonin 5 mg tablet Take 1 tablet (5 mg total) by mouth at bedtime. at bedtime 09/21/2024 active tiZANidine (ZANAFLEX) 4 mg tablet Take 1 tablet (4 mg total) by mouth 2 (two) times a day if needed for muscle spasms. 09/21/2024 active lactulose (CHRONULAC) solution Take 15 mL (10 g total) by mouth 1 (one) time each day if needed (Constipation). 09/20/2024 active polyethylene glycol (Miralax) 17 gram/dose oral powder Take 17 g by mouth 1 (one) time each day. 09/20/2024 active senna-docusate (PERICOLACE) 8.6-50 mg per tablet Take 1 tablet by mouth 2 (two) times a day. 09/20/2024 active metFORMIN XR (GLUCOPHAGE-XR) 500 mg 24 hr tablet TAKE 1 TABLET BY MOUTH TWICE DAILY 09/07/2024 active mometasone (NASONEX) 50 mcg/actuation nasal spray Administer 2 sprays into each nostril 2 (two) times a day. 08/05/2024 active busPIRone (BUSPAR) 7.5 mg tablet Take 1 tablet (7.5 mg total) by mouth 1 (one) time each day. 07/28/2024 active mirabegron (Myrbetriq) 25 mg 24 hr tablet Take 1 tablet (25 mg total) by mouth 1 (one) time each day. 07/28/2024 active krqkhnmdbqdv-Tl-olfm-mine rals 18-0.4 mg tablet Take 1 each by mouth 1 (one) time each day. Multiple Vitamins-Iron (Tab-A-Timothy/Iron /Beta Carotene) Tab TAKE 1 TABLET BY MOUTH DAILY. 07/28/2024 active simvastatin (ZOCOR) 20 mg tablet Take 1 tablet (20 mg total) by mouth at bedtime. at bedtime 07/28/2024 active albuterol HFA (Ventolin HFA) 90 mcg/actuation inhaler Inhale 2 puffs by mouth every 4 (four) hours if needed for wheezing or shortness of breath. 07/27/2024 active acetaminophen (TYLENOL 8 HOUR) 650 mg 8 hr tablet Take 1 Tablet by mouth every 8 hours as needed for Pain. 08/07/2023 active primidone (MYSOLINE) 50 mg tablet 07/30/2023 active topiramate (TOPAMAX) 50 mg tablet 07/30/2023 active blood-glucose sensor (12 Star SurvivalStyle Marlee 3 Plus Sensor) device Change sensor every 15 days 01/28/2023 active ondansetron ODT (ZOFRAN-ODT) 4 mg disintegrating tablet Take 1 Tablet by mouth every 8 hours as needed. active Allergies Allergen Reaction Severity Comment Documented Date Source Statu s MORPHINE shakes 05/10/2020 [facility] active AMOXICILLIN RASH Amoxicillin [Kdc:amoxicillin+edet ic Acid+sodium Benzoate] 04/30/2012 [facility] active Problems Problem Status Onset Date Problem Type Date of Resolution Source Panic disorder active 2018-06-11 ProblemAct [facility]_ [facility] Mild intermittent asthma, uncomplicated active 2024-06-20 ProblemAct [facility] Hypoglycemia, unspecified active 2024-06-20 ProblemAct [facility] Vertigo active 2015-11-02 ProblemAct [facility] Urge incontinence active 2006-07-30 ProblemAct [facility] Irritable bowel syndrome with constipation active 2023-11-05 ProblemAct [facility] Hip dysplasia, congenital active 2012-01-15 ProblemAct [facility] Asthma active 2022-11-22 ProblemAct [facility] Hyperlipidemia active 2022-04-01 ProblemAct [facility] Type 2 diabetes mellitus with hyperglycemia, without long-term current use of insulin ([facility] V24, [facility]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 2019-12-10 ProblemAct [facility] Migraine without status migrainosus, not intractable active 2023-01-28 ProblemAct [facility] COVID-19 virus infection active 2021-05-28 ProblemAct [facility] Headache active 2006-07-30 ProblemAct [facility] Chronic bilateral low back pain without sciatica active 2018-12-14 ProblemAct [facility]_THS KIP GERD (gastroesophageal reflux disease) active 2006-07-30 ProblemAct [facility] 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, [facility]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 2024-06-20 ProblemAct C T_THSFRAN Diabetes mellitus type 2 with neurological manifestations ([facility] V24, [facility]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 2015-04-24 ProblemAct [facility] Allergic rhinitis active 2007-11-10 ProblemAct [facility] 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, [facility]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 2023-08-11 ProblemAct [facility] Anxiety and depression active 2008-02-11 ProblemAct [facility] Insomnia active 2023-04-30 ProblemAct [facility] AN Immunizations Vaccine Date Source Lot Number Status Influenza, Unspecified 04/13/2023 [facility] co mpleted Pfizer (ages 12 & older) Biv alent, COVID-19 04/16/2022 [facility] [id number] completed Influenza Quadravalent, MDCK , 0.5ml, preservative free (Flucelvax) 6mo and older 04/01/2022 [facility]AN [id number] completed Pfizer SARS-CoV-2 COVID-19, mRNA, LNP-S, preservative free 09/08/2021 [facility] completed Zoster recombinant (Shingrix ) 19yo and older 01/07/2021 [facility] [id number] completed Influenza Quadravalent, MDCK , 0.5ml, preservative free (Flucelvax) 6mo and older 04/14/2020 CT_Victor MNICK [id number] completed Influenza Quadrivalent, 0.5m l, preservative free (Fluarix; FluLaval; Fluzone) ages 6mo and older (Afluria) 3yo and older 04/23/2019 [facility]_JUSTIN [id number] completed Influenza Quadravalent, MDCK , 0.5ml, preservative free (Flucelvax) 6mo and older 08/06/2018 [facility]_JUSTIN [id number] completed Tdap Tetanus diptheria acell ular pertussis (Boostrix; Adacel) 7yo and older 03/11/2016 [facility]_JUSTIN [id number] completed Influenza Quadrivalent, 0.5m l, preservative free (Fluarix; FluLaval; Fluzone) ages 6mo and older (Afluria) 3yo and older 03/07/2016 [facility]_JUSTIN [id number] completed Influenza trivalent, with pr eservative (Fluzone; Afluria) 6mo and older 04/24/2015 [facility]_Victor MNICK [id number] completed Influenza trivalent, with pr eservative (Fluzone; Afluria) 6mo and older 05/26/2014 [facility]_JUSTIN [id number] completed Pneumococcal polysaccharide 23 valent (Pneumovax 23) 2yo and older 05/26/2014 [facility]_JUSTIN [id number] com pleted Influenza trivalent, with pr eservative (Fluzone; Afluria) 6mo and older 04/13/2010 [facility] Care Team Organization Name Specialty Phone Email Start Date End Da te [facility] 04/30/2022 4
== END 2025-01-12 13:21 | disposition home or self-care (01) ==
LOC: HO.HSM 12:59
PROVIDERS: PCP Internal Medicine; Visit Provider Psychiatry & Neurology Neurology
DX: G23.8 Other specified degenerative diseases of basal ganglia (principal); G43.009 Migraine without aura, not intractable, without status migrainosus; G47.01 Insomnia due to medical condition
CPT/HCPCS: 99214

== ENCOUNTER → 2025-01-12 12:59 | Outpatient (BNVA) | payer OTHER, SELFPAY | PROVIDERS: PCP Internal Medicine; Visit Provider Psychiatry & Neurology Neurology | DX: G43.009 Migraine without aura, not intractable, without status migrainosus (principal); G23.8 Other specified degenerative diseases of basal ganglia; G47.01 Insomnia due to medical condition; R25.1 Tremor, unspecified | CPT/HCPCS: 99212 ==

== ENCOUNTER 2025-04-18 09:59 | Outpatient (AMB) | payer OTHER, SELFPAY ==
--- OUTSIDE RECORDS SUMMARY | 2024-08-23 10:00 | XMS_ITS ---
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 * Medical History: Objective: * Vitals: Assessment: Plan: * Treatment: * Images: * The named appointment provid er may or may not be the originator of this progress note, and it is not deemed complete until electronically signed by the appointment provider. Sign off status: Pending * Provider: Ricky Ledezma DPM Date: 0 08/23/2024 Generated for Chiquita gama/Mayda/Miltonitting on: 1 11:47 AM EDT
--- OUTSIDE RECORDS SUMMARY | 2024-11-16 09:00 | XMS_ITS ---
Author Organization [facility] Address [address] [place] [phone] Care Team Providers Care Print Developer Name Role Phone Shay Rocha Primary Care Provider Unavailab Chino Arreguin Unavailable [phone] Salma Mcfadden Unavailable [phone] Encounters Encounter Location Date Provider Diagnosis [facility] [address] [address] 11/16/2024 Salma Mcfadden Plan Of Treatment No Information Progress Notes * Osvaldo COHENOB:1965 ( 59 yo F)Acc No.[id number]:11/16/2024 Progress Notes Patient: Ninoska SAUNDERS Provider: Noemi Mcfadden DPM :1965 A ge:59 Y S ex:Female Date:11/16/2024 [facility] [facility] [address] [facility] Pcp:Shay Rocha Subjective: * Chief Complaints: * [...] DPM Date: 0 11/16/2024 Generated for Chiquita gama/Mayda/Miltonitting on: 11:47 AM EDT
--- NOTE | 2025-04-18 10:01 | MHC.OFFVIS ---
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: No Accompanied by: Spouse Allergies amoxicillin Allergy (Intermediate, Verified 04/18/25 10:06) Rash morphine Allergy (Intermediate, Verified 04/18/25 10:06) Chills Medication List - Last Reconciled 04/18/25 by Humaira Morgan, LAURA buspirone 7.5 mg PO TID celecoxib 50 mg PO BID citalopram 40 mg PO DAILY conj estrog-medroxyprogest eli 0.3-1.5 mg (Prempro) 1 tab PO DAILY estradiol 0.5 mg PO DAILY famotidine 20 mg PO DAILY dsrbtdtuxts-ermpnhfzm-mzubqxqe 200-62.5-25 mcg (Trelegy Ellipta) 1 inh inhalation DAILY gabapentin 100 mg PO TID glipizide 10 mg PO DAILY insulin glargine-yfgn units subcut meclizine 25 mg PO TID medroxyprogesterone 2.5 mg PO DAILY melatonin mg PO meloxicam 7.5 mg PO DAILY metformin 500 mg PO BID mirabegron ER (Myrbetriq) 25 mg PO DAILY omeprazole 40 mg PO DAILY primidone 50 mg PO BID quetiapine 50 mg PO BEDTIME 90 days simvastatin 20 mg PO BEDTIME sitagliptin phosphate (Januvia) 50 mg PO DAILY tizanidine 4 mg PO BID PRN topiramate 50 mg PO DAILY 90 days tramadol 50 mg PO Q8-10H PRN HPI Comments Details: Ninoska is a 59-year-old female patient with a past medical history of anxiety, depression, chronic back pain, asthma, tremor, insomnia, and migraine. She is followed in the clinic for her tremor, insomnia, and migraine history. She was last seen by Dr. De La Garza in December of 2024 and was continued on a regimen of primidone 50 mg twice daily for tremor, topiramate 50 mg at night for migraine, and quetiapine 50 mg at night for insomnia. Symptoms were stable at that time. 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 PSP could not be excluded. Ninoska tells me today that her tremor has been much better controlled after increasing her primidone back to 50 mg twice daily. She is not sure why the primidone had been dosed at 50 mg nightly for some time. Now that she is getting her daytime dose, she feels that her activities of daily living have been much easier to pursue with her tremor. In terms of migraine, she reports that her migraines have been well controlled with the topiramate 50 mg at nighttime. Her migraines are typically right temporal and frontal associated with light and sound sensitivity as well as nausea. They last a few hours and resolve with asav-ofj-qjmtjqx ibuprofen generally. In terms of sleep, she reports that her Seroquel has been working well and she feels that she ?sleeps like a baby?. She does however note that she is very drowsy during the day and often has difficulty staying awake during the day. She does note that approximately 2 years ago she had a sleep study in [place] which noted obstructive sleep apnea. She was however not able to tolerate CPAP in the past and has not been ever treated for her BERTA. Her most concerning symptom today is some ongoing neck pain. She has difficulty with range of motion of her neck and general discomfort primarily to the left upper trapezius area and center of the base of her neck. She did have an EMG study in the past which noted a mild cervical radiculopathy bilaterally. Prior workup: 07/28/2022 MRI of the brain FINDINGS: BRAIN VOLUME: Bkqu-ye-wupvdzkt generalized diffuse parenchymal volume loss within the limitations of qualitative assessment. Slightly disproportional midbrain volume loss. STRUCTURAL: No malformations. BRAIN AND MENINGES: DWI sequence demonstrates no restricted diffusion to suggest acute or subacute cerebral ischemia. The brain parenchyma is normal in signal intensity. Gradient refocused imaging demonstrates no abnormal susceptibility-weighted signal loss to suggest hemorrhage, hemosiderin staining or abnormal mineralization. No extra-axial fluid collection, space-occupying process or mass effect is identified. VENTRICLES AND SUBARACHNOID SPACES: The ventricular system and subarachnoid spaces are approximately proportional to the degree of parenchymal volume loss, without hydrocephalus. ORBITAL STRUCTURES: The visualized orbital structures are grossly unremarkable within the limitations of the study. VASCULAR: Signal voids are noted in the visualized major intracranial vessels. OSSEOUS STRUCTURES, SINUSES/MASTOIDS, EXTRACRANIAL SOFT TISSUES: Unremarkable. MR/MR head/brain wo con IMPRESSION: 1. Limited exam due to motion artifact. 2. No acute intracranial process identified. No evidence for acute or subacute infarct, hemorrhage, extra-axial fluid collection, space-occupying process, mass effect or hydrocephalus and no significant brain signal abnormalities are seen. 3. Lczv-up-uppsirik generalized diffuse brain parenchymal volume loss. Slightly disproportional midbrain volume loss is suspected. Cannot exclude progressive supranuclear palsy. EMG study 09/2023: Moderate bilateral median neuropathy across the carpal tunnel. Chronic bilateral mid cervical radiculopathy. [facility] Medical History (Updated 04/18/25 @ 10:38 by Humaira Morgan CNP) Carpal tunnel syndrome Carpal tunnel syndrome, bilateral upper limbs Olivopontocerebellar atrophy Ataxia Migraine Dyskinesia Chronic headaches Pancreatitis Insomnia Panic disorder Depression Anxiety Chronic back pain Obesity GERD (gastroesophageal reflux disease) Asthma Diabetes Surgical History History of hip surgery H/O left wrist surgery H/O: hysterectomy Social History Alcohol intake: never Patient Tobacco Use Status: Never used Tobacco Review of Systems Const All systems reviewed & are unremarkable except as noted in HPI and below Physical Exam Const General: cooperative, healthy appearing, comfortable and no acute distress Nutritional Appearance: well nourished Orientation/consciousness: patient oriented x3 Limitations: no limitations HEENT Head: Yes normal to inspection and Yes normocephalic Eyes General: appearance normal, both eyes and all related structures Visual Barreto: normal visual barreto by confrontation Alignment and Position: alignment normal Periorbital: periorbital findings normal Eyelids: Yes eyelids normal Conjunctivae: conjunctivae normal Sclerae: sclerae normal Back/Spine/Pelvis Other: Bilateral L>R trigger points and myofacial tenderness Cervical Spine: pain with cervical ROM Neuro General: patient oriented x3 Cranial nerves: Yes CN's II-XII intact bilaterally and Yes Facial sensation intact/muscles of mastication intact Cognition (Neuro): normal cognition Gait exam (Neuro): Normal gait present Motor exam (neuro): no tremor noted Sensory Exam: double simultaneous stimulation for sensation normal Romberg Test: Negative Pupils: Normal pupillary reactivity/response: bilateral Psych Appearance: grossly normal Mental Status: mental status grossly normal Speech and movement: Normal speech and movement present and Clear speech present Affect: normal affect Attitude: cooperative Thought process: Normal thought process present Thought content: Normal thought content present Insight: Good insight present (Psych) Judgement: Good judgement present (Psych) Assessment & Plan Assessment & Plan (1) Migraine without aura, not intractable, without status migrainosus: Code(s): G43.009 - Migraine without aura, not intractable, without status migrainosus Category: Medical (2) Tremor: Code(s): R25.1 - Tremor, unspecified Category: Medical (3) Olivopontocerebellar atrophy: Comment: Meds tried for shaking/dyskinesia: Austedo NCV/EMG UE Moderate bilateral median neuropathy across the Carpal tunnel. Chronic bilateral mid cervical radiculopathy. 02/24/24. Berkley disease test at [facility] in Apr 2023: Negative CT brain WO at [facility] in 2017: Mild atrophy [place] [facility] [place]: mild to mod diff atroph, somewhat more in brainstem and cerebellum, caudate are ok. Code(s): G23.8 - Other specified degenerative diseases of basal ganglia Category: Medical (4) Insomnia: Code(s): G47.00 - Insomnia, unspecified Category: Medical Qualifiers: Insomnia type: due to medical condition Qualified Code(s): G47.01 - Insomnia due to medical condition (5) Muscle pain, myofascial: Code(s): M79.18 - Myalgia, other site Category: Medical (6) Trigger point of shoulder region: Code(s): M25.519 - Pain in unspecified shoulder Category: Medical Plan Ninoska is a 59-year-old female patient with a past medical history of anxiety, depression, chronic back pain, asthma, tremor, insomnia, and migraine. Her tremor is well controlled currently on primidone 50 mg twice daily and her migraines are well controlled on topiramate 50 mg nightly. Of greater concern is her daytime somnolence and untreated BERTA. She is willing to try CPAP therapy but at this point we should undergo another in-lab study with titration as her last study was over 2 years ago. In regards to her neck pain, she does have some obvious trigger points and generalized myofascial pain L>R. She would likely benefit from trigger point injections. We will obtain prior authorization and rescheduled for this procedure. Notably, she does have some cervical radiculopathy. We could consider imaging of the C-spine if her radicular symptoms become more severe. -in-lab sleep study -trigger point injections to the trapezius muscles. We will obtain PA and reschedule for this -All rx refilled Orders: Orders RT PSG in-lab sleep study Today G47.01 - Insomnia due to medical condition, G47.33 - Obstructive sleep apnea (adult) (pediatric) Medications: Changed From quetiapine 50 mg PO BEDTIME 30 days 30 tabs 5RF To quetiapine 50 mg PO BEDTIME 90 tabs 3RF 90 days Refilled topiramate 50 mg PO DAILY 90 tabs 3RF 90 days primidone 50 mg PO BID 180 tabs 3RF Coding Level of Care Code Est Pt Level 4 (40936) Diagnoses Migraine without aura, not intractable, without status migrainosus G43.009 Tremor R25.1 Olivopontocerebellar atrophy G23.8 Insomnia due to medical condition G47.01 Insomnia type: due to medical condition Muscle pain, myofascial M79.18 Trigger point of shoulder region M25.519
[2025-04-18 10:06] VITALS: BP 138/78; PULSE 113; RESP 16; O2SAT 96; BMI 39.5
--- OUTSIDE RECORDS SUMMARY | 2025-04-18 11:47 | XMS_ITS | Patient Health Record ---
Author Organization [facility] Marjorie [address] [place] Address [address] [place] [address] Care Team Providers Care Fabricating Machine Operator Name Role Phone Shay Rocha Primary Care Provider Unavailab Chino Arreguin Unavailable [phone] Salma Mcfadden Unavailable [phone] Reason For Referral No Information Encounters Encounter Location Date Provider Diagnosis [facility] [address] [facility] [address] [place] [address] 11/08/2024 Salma Mcfadden Plan Of Treatment No Information Insurance Providers Payer Name Payer Address Payer Phone Subscriber Number Group Number Insured Name Patient Relationship to Insured Coverage Start Date Coverage End Date [facility] [employer] Claims [address] [place] [id number] Ninoska Rooney Self - patient is the insured
--- OUTSIDE RECORDS SUMMARY | 2025-04-18 11:47 | XMS_ITS | Encounter Summary ---
Author Organization [facility] Address [address] [place] [address] Care Team Providers Care Edging Machine Catcher Name Role Phone Shay Rocha MD Primary Care Provider [phone]- [phone] Reason for Visit * Reason Onset Date Comments medication clarification 04/14/2025 Encounter Details Date Type Department Care Team ([facility] st Contact Info) Description 04/14/2025 Telephone Gastroenterology - [place] [address] [facility] [address] [facility] [address] [place] [phone] Kassandra Prado NP 175 [facility] [address] [place] [address] Social History Tobacco Use Types Packs/Day Years [...] as of this encounter Progress Notes * Rosa Gaona MA - 04/15/2025 10:24 AM EDT Called bucky and made aware of below message * Kassandra Prado NP - 04/15/2025 7:54 AM EDT Prescription for pantoprazole is in addition to sucralfate. Thank you. * Peg Leblanc - 04/14/2025 4:09 PM EDT Script clarification received from [facility]. Patient was prescribed Pantoprazole 40 MG tablets, however patient is currently on Sucralfate. Is pantoprazole being added in addition or should sucralfate be discontinued ? Please advise. . . documented in this encounter Plan of Treatment Upcoming Encounters Date Type Department Care Team (Late st Contact Info) Description 04/20/2025 11:45 AM EDT Office Visit Urogynecology - [address] [phone] Jen Quan MD [address] [place] [address] 04/25/2025 2:00 PM EST Office Visit Adult Medicine [place] - [address] [phone] Agnes Ayala PA [address] [place] [address] 04/27/2025 1:30 PM EST Office Visit Endocrinology - [address] [phone] Felice Christianson MD [address] [place] [id number] 10/27/2025 11:00 AM EDT Office Visit Gastroenterology - [address] [place] [address] [address] [place] [address] Kassandra Prado, INSURANCE COMPLIANCE ANALYST 175 [facility] [address] [place] [address] documented as of this encounter Goals Goal [...] on filedocumented in this encounter Care Teams Edging Machine Catcher Relationship Specialty Start Date End Date Shay Rocha MD [address] [place] [phone] PCP - General 11/22/22 documented as of this encounter
--- OUTSIDE RECORDS SUMMARY | 2025-04-18 11:47 | XMS_ITS | Encounter Summary ---
Author Organization [facility] Address [address] [place] [address] Care Team Providers Care Gi Technician Name Role Phone Shay Rocha MD Primary Care Provider [phone]- [phone] Reason for Visit * Reason Onset Date Comments prior authorization 04/07/2025 Encounter Details Date Type Department Care Team (Late st Contact Info) Description 04/07/2025 Telephone Gastroenterology - [place] [address] [place] [phone] Kassandra Prado NP 175 [facility] [address] [place] [address] Social History Tobacco Use Types Packs/Day Years [...] as of this encounter Progress Notes * Kassandra Prado NP - 04/13/2025 10:56 AM EDT Since insurance is not covering Nexium, I sent alternative-pantoprazole 40 mg twice daily to her pharmacy. Thank you. * Jocelin Kiser - 04/11/2025 3:06 PM EDT The pharmacy called regarding this medication - they staid it requires a step therapy - Provider must provide details why other medications did not work for her ect. Also the plain only allows 30 caps for 30 days only. The script has to be written this way as well. Please advise. esomeprazole (NexIUM) [address] capsule * Cristina Greene MA - 04/07/2025 1:49 PM EDT PA for esomeprazole initiated via a form with [employer] DX K21.9 * Peg Leblanc - 04/07/2025 1:25 PM EDT Prior Authorization for Medication-do not complete and send this encounter unless you have the fax from the pharmacy. Is this a Cover My Meds request: YES, [id number] Name of Medication esomeprazole (NexIUM) Dose of Medication [address] capsule What is the RX # from the faxed refill? How does patient take this med? Take 1 capsule (40 mg total) by mouth 2 (two) times a day before meals. Do not open capsule. What Pharmacy did the fax come from: [facility] fax #: [phone]. documented in this encounter Plan of Treatment Upcoming Encounters Date Type Department Care Team (Late st Contact Info) Description 04/20/2025 11:45 AM EDT Office Visit Urogynecology - [address] [phone] Jen Quan MD [address] [place] [address] [address] [place] [phone] 04/25/2025 2:00 PM EST Office Visit Adult Medicine [facility] [address] [place], [place] [phone] Agnes Ayala PA [address] [place], [place] 04/27/2025 1:30 PM EST Office Visit Endocrinology [address] [phone] Felice Christianson MD [address] [place] [address] 10/27/2025 11:00 AM EDT Office Visit Gastroenterology - [address] [place] [phone] Kassandra Prado, STAFFING EXECUTIVE 175 [facility] [address] [place] [address] documented as of this encounter Goals Goal Patient Goal Type Associated Problems Recent Progress Patient-Stated? Author STG's 6 visits General Yes Helio Stark PT Note: Pt will report a 1 [...] activities. LTG's 12 visits General Yes Helio Stark PT Note: Pt will report a 2 [...] on filedocumented in this encounter Care Teams Gi Technician Relationship Specialty Start Date End Date Shay Rocha MD [address] [place] [phone] PCP - General 11/22/22 documented as of this encounter
--- OUTSIDE RECORDS SUMMARY | 2025-04-18 11:48 | XMS_ITS | Clinical Summary ---
Author Organization [address] Address [address] [place] [phone] Phone Care Team Providers Care Kennel Keeper Name Role Phone Shay Rocha MD Primary Care Provider [phone] Allergies Active Allergy Reactions Criticality Noted Date Comments Amoxicillin Rash 04/30/2012 Amoxicillin [Kdc:amoxicillin+edetic Acid+sodium Benzoate] Morphine 05/10/2020 shakes Medications flash glucose scanning reader ([employer] DirectStyle Marlee 2 Dresser) misc 1 Device by Does not apply route continuous. 023 Active reservoir inhalation (INSPIREASE) device Use inhalers through spacer 023 Active acetaminophen (TYLENOL 8 HOUR) 650 mg 8 hr tablet Take 1 Tablet by mouth every 8 hours as needed for Pain. 024 Active primidone (MYSOLINE) 50 mg tablet 024 Active topiramate (TOPAMAX) 50 mg tablet 024 Active mirabegron (Myrbetriq) 25 mg 24 hr tablet Take 1 tablet (25 mg total) by mouth 1 (one) time each day. 90 tablet 1 025 Active pqshesgpmvgf-He-h sandra-minerals 18-0.4 mg tablet Take 1 each by mouth 1 (one) time each day. Multiple Vitamins-Iron (Tab-A-Timothy/I sandra/Beta Carotene) Tab TAKE 1 TABLET BY MOUTH DAILY. 90 each 1 025 Active albuterol HFA (Ventolin HFA) 90 mcg/actuation inhaler Inhale 2 puffs by mouth every 4 (four) hours if needed for wheezing or shortness of breath. 8 g 025 2025 Active mometasone (NASONEX) 50 mcg/actuation nasal spray Administer 2 sprays into each nostril 2 (two) times a day. 17 g 2025 Active pen needle, diabetic 32 gauge x needle USE TO INJECT INSULINS UNDER THE SKIN UP TO 4 TIMES DAILY. 200 each Active lactulose (CHRONULAC) solution Take 15 mL (10 g total) by mouth 1 (one) time each day if needed (Constipation ). 450 mL Active melatonin 5 mg tablet Take 1 tablet (5 mg total) by mouth at bedtime. at bedtime 90 tablet 1 Active estradioL (ESTRACE) 0.01 % (0.1 mg/gram) vaginal cream Please use 0.5g (a pea-sized or blueberry-siz ed amount) on your finger and place inside vagina fr 2 wks at night on mon & thurs. Finger will be more gentle than applicator. 42.5 g Active psyllium (Metamucil, with sugar,) 3.4 gram packet Take 1 packet by mouth 2 (two) times a day. Mix and drink with at least 8 ounces of water or juice. 60 packet 2025 Active glipiZIDE (GLUCOTROL) 10 mg tablet TAKE 1 TABLET BY MOUTH EVERY DAY 28 tablet Active freestyle 28 gauge lancetsIndication s:Diabetes mellitus type 2 with neurological manifestations (CMS/HCC V24, CMS/HCC V28) Check blood sugar four times a day or as directed 100 each 2025 Active FreeStyle Test test stripIndications: Diabetes mellitus type 2 with neurological manifestations (CMS/HCC V24, CMS/HCC V28) Check blood sugar four times a day or as directed 100 each 025 2025 Active diclofenac (VOLTAREN) 1 % topical gel Apply 2 g topically 2 (two) times a day if needed (backache). 100 g 3 Active gabapentin (NEURONTIN) 100 mg capsule Take 2 Capsules by mouth every morning AND 3 Capsules at bedtime. 450 capsule 1 Active blood-glucose meter kitIndications:Di abetes mellitus type 2 with neurological manifestations (CMS/HCC V24, CMS/HCC V28) Use daily or as directed for monitoring of diabetes 1 each 025 2025 Active blood-glucose sensor (FreeStyle Marlee 3 Plus Sensor) deviceIndications :Diabetes mellitus type 2 with neurological manifestations (CMS/HCC V24, CMS/HCC V28) Change sensor every 15 days 6 each Active Lactobacillus acidophilus capsule Take 1 capsule by mouth 2 (two) times a day. 180 capsule 3 025 2025 Active blood-glucose,rec eiver,cont (FreeStyle Marlee 3 Dresser) miscIndications:D iabetes mellitus type 2 with neurological manifestations (CMS/HCC V24, CMS/[facility] V28) Used to check blood sugars 1 each 5 Active SITagliptin phosphate (Januvia) 50 mg tablet Take 1 tablet (50 mg total) by mouth 1 (one) time each day. 90 tablet 1 Active metFORMIN XR (GLUCOPHAGE-XR) 500 mg 24 hr tablet Take 1 tablet (500 mg total) by mouth 2 (two) times a day. Do not crush, chew, or split. 180 tablet 1 025 Active busPIRone (BUSPAR) 7.5 mg tablet Take 1 tablet (7.5 mg total) by mouth 1 (one) time each day. 90 tablet 1 025 Active fluticasone-umecl idinium-vilantero l (TRELEGY ELLIPTA) 200-62.5-25 mcg inhaler Inhale 1 puff (200 mcg total) by mouth 1 (one) time each day. 1 each Active polyethylene glycol (Miralax) 17 gram/dose oral powder Take 17 g by mouth 1 (one) time each day. 1530 g 025 Active senna-docusate (PERICOLACE) 8.6-50 mg per tablet Take 1 tablet by mouth 2 (two) times a day. 180 tablet 1 025 Active simvastatin (ZOCOR) 20 mg tablet Take 1 tablet (20 mg total) by mouth at bedtime. at bedtime 90 tablet 1 025 Active tiZANidine (ZANAFLEX) 4 mg tablet Take 1 tablet (4 mg total) by mouth 2 (two) times a day if needed for muscle spasms. 60 tablet 2 025 Active citalopram (CeleXA) 40 mg tablet Take 1 tablet (40 mg total) by mouth 1 (one) time each day. 90 tablet 1 025 Active insulin glargine (Lantus Solostar U-100 Insulin) 100 unit/mL (3 mL) injection penIndications:Ty pe 2 diabetes mellitus with hyperglycemia, without long-term current use of insulin (CMS/[facility] V24, CMS/[facility] V28) INJECT 44 UNITS INTO THE SKIN AT BEDTIME 3 Pen 2 025 Active insulin aspart (NovoLOG Flexpen U-100 Insulin) 100 unit/mL (3 mL) injection pen Inject up to 12 units into the skin 3 times a day 15 mL 5 025 Active blood sugar diagnostic (FreeStyle Lite Strips) test stripIndications: Diabetes mellitus type 2 with neurological manifestations (CMS/HCC V24, CMS/[facility] V28) USE TO TEST BLOOD SUGAR 4 TIMES DAILY OR DIRECTED. 200 strip 5 025 Active estradioL (ESTRACE) 0.5 mg tablet @@TAKE 1 TABLET BY MOUTH DAILY. 30 tablet 3 025 Active medroxyPROGESTERo ne (PROVERA) 2.5 mg tablet TAKE (1) TABLET BY MOUTH DAILY 30 tablet 3 025 Active insulin glargine-yfgn 100 unit/mL (3 mL) injection INJECT 44 UNITS INTO THE SKIN AT BEDTIME. 15 mL 2 025 Active lidocaine (LIDODERM) 5 % patch 025 Active QUEtiapine (SEROquel) 50 mg tablet 025 Active sulfamethoxazole- trimethoprim (BACTRIM DS,SEPTRA DS) 800-160 mg per tablet 03/04/2 025 Active traMADoL (ULTRAM) 50 mg tablet Take 1 tablet (50 mg total) by mouth. 023 Active polyethylene glycol-electrolyt es (NULYTELY) 420 gram solution 024 Active meclizine (ANTIVERT) 25 mg tablet TAKE 1 TABLET BY MOUTH 3 TIMES DAILY NEEDED FOR DIZZINESS. 90 tablet 1 Active nortriptyline (PAMELOR) 10 mg capsule TAKE 2 CAPSULES BY MOUTH EVERY DAY AT BEDTIME 60 capsule 4 Active sucralfate (CARAFATE) 100 mg/mL suspension Take 10 mL (1 g total) by mouth 4 (four) times a day (before meals and nightly). Take 1 hour before meals and at bedtime 3600 mL 2025 Active ondansetron ODT (ZOFRAN-ODT) 4 mg disintegrating tabletIndications :Nausea Take 1 tablet (4 mg total) by mouth every 8 (eight) hours if needed for nausea for up to 20 days. 30 tablet 1 2024 Active dicyclomine (BENTYL) 20 mg tablet Take 1 tablet (20 mg total) by mouth 4 (four) times a day if needed (Abdominal cramping). 360 each 025 2025 Active pantoprazole (PROTONIX) 40 mg EC tablet Take 1 tablet (40 mg total) by mouth 2 (two) times a day before meals. Do not crush, chew, or split. 180 each 3 025 2025 Active ondansetron ODT (ZOFRAN-ODT) 4 mg disintegrating tablet Take 1 Tablet by mouth every 8 hours as needed. 2024 Discontinued(R eorder) nortriptyline (PAMELOR) 10 mg capsule TAKE 2 CAPSULES BY MOUTH EVERY DAY AT BEDTIME 60 capsule 4 025 2024 Discontinued(R eorder) omeprazole (PriLOSEC) [address] capsule Take 1 capsule (40 mg total) by mouth 2 (two) times a day before meals. Do not crush or chew. 180 each 3 025 2024 Discontinued dicyclomine (BENTYL) 10 mg capsule Take 1 capsule (10 mg total) by mouth 3 (three) times a day if needed (abdominal pain/spasm). 90 capsule 4 025 2024 Discontinued estradioL (ESTRACE) 0.5 mg tablet Take 1 tablet (0.5 mg total) by mouth 1 (one) time each day. 30 tablet 5 025 2024 Discontinued medroxyPROGESTERo ne (PROVERA) 2.5 mg tablet TAKE (1) TABLET BY MOUTH DAILY 30 tablet 025 2024 Discontinued esomeprazole (NexIUM) [address] capsuleIndication s:Gastroesophagea l reflux disease without esophagitis Take 1 capsule (40 mg total) by mouth 2 (two) times a day before meals. Do not open capsule. 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[facility] V24, [facility] V28) 08/11/2023 Insomnia 04/30/2023 Migraine without status migrainosus, not intract able 01/28/2023 Asthma 11/22/2022 Hyperlipidemia 04/01/2022 COVID-19 virus infection 05/28/2021 Overview (03/26/2024): 11.15.21 Type 2 diabetes mellitus wit h hyperglycemia, without long-term current use of insulin ([facility] V24, [facility] V28) 12/10/2019 Chronic bilateral low back pain without sciatica 12/14/2018 Panic disorder 06/11/2018 Vertigo 11/02/2015 Hip dysplasia, congenital 01/15/2012 Anxiety and depression 02/11/2008 Allergic rhinitis 11/10/2007 GERD (gastroesophageal reflux disease) 7 Overview (03/26/2024): treated with Prilosec, Biaxin, Amox for H Pylori - 02/26 Headache 07/30/2006 Overview (03/26/2024): treated with verapamil Urge incontinence 07/30/2006 Encounters Date Type Department Care Team Description 04/14/2025 Telephone Gastroenterology [facility] [address] [phone] Kassandra Prado NP 04/07/2025 11:20 AM EDT Office Visit Gastroenterology [facility] [address] [phone] Kassandra Prado NP Gastroesophageal reflux disease without esophagitis (Primary Dx); Abdominal discomfort, epigastric; Nausea 04/07/2025 Telephone Gastroenterology [facility] [address] [phone] Kassandra Prado NP 04/06/2025 1:00 PM EDT Office Visit Urogynecology [address] [phone] Neetu Ortiz MD Urinary urgency (Primary Dx) 02/17/2025 Telephone Adult Medicine [address] [phone] Shay Rocha MD 02/17/2025 Telephone Adult Medicine [address] [phone] Shay Rocha MD 02/15/2025 Telephone Adult Medicine [address] [phone] Gerardo Ponce LPN 02/09/2025 Telephone Adult Medicine [address] [phone] Shay Rocha MD from Last 3 Months Immunizations Immunization Administration Dates Next Due Influenza Quadravalent, MDCK , 0.5ml, preservative free (Flucelvax) 6mo and older 04/01/2022,04/14/2020,08/06/2018 Influenza Quadrivalent, 0.5m l, preservative free (Fluarix; FluLaval; Fluzone) ages 6mo and older (Afluria) 3yo and older 04/23/2019,03/07/2016 Influenza trivalent, with pr eservative (Fluzone; Afluria) 6mo and older 04/24/2015,05/26/2014,04/13/2010 Influenza, Unspecified 04/13/2023 Pfizer (ages 12 & older) Bivalent, COVID-19 03/24 Pfizer SARS-CoV-2 COVID-19, mRNA, LNP-S, preservative free 09/08/2021 Pneumococcal polysaccharide 23 valent (Pneumovax 23) 2yo and older 05/26/2014 Tdap Tetanus diptheria acell ular pertussis (Boostrix; Adacel) 7yo and older 03/11/2016 Zoster recombinant (Shingrix ) 19yo and older 01/07/2021 Surgical History Surgery Date Site/Laterality Comments OTHER SURGICAL HISTORY PROCEDURE: SD ARTHROSCOPY HIP DIAGNOSTIC W/WO SYNOVIAL BYP SPX; COMMENT: dysplasia at child age 9 bilaterally TUBAL LIGATION 199 PROCEDURE: HISTORICAL TUBAL LIGATION; COMMENT: after having 2 sons & WRIST SURGERY -08/2013 Dr Arechiga Left PROCEDURE: HISTORICAL WRIST SURGERY; COMMENT: [facility], plates for Fx OTHER SURGICAL HISTORY PROCEDURE: SD TOTAL ABDOMINAL HYSTERECT W/WO RMVL TUBE OVARY; COMMENT: robotic with BSO- for recurrent PMB Medical History Medical History Date Comments Low back pain 04/14/2008 DX:Low back pain Depression 02/11/2008 DX:Depression Anxiety 02/11/2008 DX:Anxiety Urge incontinence 07/30/2006 DX:Urge incont inence Tremor 09/12/2016 DX:Tremor GERD (gastroesophageal reflux disease) 7 DX:GERD (gastroesophageal reflux disease); COMMENT: treated with Prilosec, Biaxin, Amox for H Pylori - 02/26 Morbid obesity with BMI of 4 0.0-44.9, adult ([facility] V24, [facility] V28) 07/30/2006 DX:Morbid obesity wit h BMI of 40.0-44.9, adult ([facility]) Panic disorder 06/11/2018 DX:Panic disorde r Allergic rhinitis 11/10/2007 DX:Allergic rh initis Headache 07/30/2006 DX:Headache; COM MENT: treated with verapamil Hip dysplasia, congenital 01/15/2012 DX:Hip dysplasia, congenital Restless leg syndrome 06/11/2018 DX:Restles s leg syndrome Vertigo 11/02/2015 DX:Vertigo History of pancreatitis 06/01/2021 DX:Histo ry of pancreatitis Hyperlipidemia 04/01/2022 DX:Hyperlipidemi a Diabetes mellitus ([facility] V 24, [facility] V28) Diverticulitis Family History Medical History Relation Name Comments Breast cancer Neg Hx Relation Name Status Comments Brother Alive 3 yrs elder. Ep ilepsy Father Alive bladder cancer, former smoker Mother Alive borderline diab etes, smoker Sister Alive x2, unknown Social History Tobacco Use Types Packs/Day Years Used Date Smoking Tobacco: Never Smokeless Tobacco: Never Tobacco Cessation:Counseling Given: Not Answered Alcohol Use Standard Drinks/Week Comments No 0 (1 standard drink = 0.6 oz pur e alcohol) Comments No Sex and Gender Information Value Date Recorded Sex Assigned at Female 09/07/2024 2:03 AM EDT Legal Sex Female 10:54 AM EST Gender Identity Female 09/07/2024 2:03 AM EDT Sexual Orientation Choose not to disclose 2024 2:03 AM EDT Obstetrics History Last Filed Vital Signs Vital Sign Reading Time Taken Comments Blood Pressure 120/80 04/07/2025 11:13 AM EDT Pulse 111 04/07/2025 11:13 AM EDT Temperature 36.8 C (98.2 F) 01/04/2025 10:34 AM EDT Respiratory Rate 18 01/04/2025 10:34 AM EDT Oxygen Saturation 96% 04/07/2025 11:13 AM EDT Inhaled Oxygen Concentration - - Weight 105 kg (231 lb) 04/07/2025 11:13 AM EDT Height 162.6 cm (5' 4 ) 04/07/2025 11:13 AM EDT Body Mass Index 39.65 04/07/2025 11:13 AM EDT Plan of Treatment Upcoming Encounters Date Type Department Care Team (Late st Contact Info) Description 04/20/2025 11:45 AM EDT Office Visit Urogynecology - [address] [phone] Jen Quan MD 580 [facility] [address] [place] [address] 04/25/2025 2:00 PM EST Office Visit [facility] - [address] [phone] Agnes Ayala PA [address] [place], [place] 04/27/2025 1:30 PM EST Office Visit Endocrinology - [address] [phone] Felice Christianson MD [address] [place] [address] 10/27/2025 11:00 AM EDT Office Visit Gastroenterology - [address] [facility] 299 [facility] [address] [place] [phone] Kassandra Prado, RUSS 175 [facility] [address] [place] [address] Health Maintenance Due Date Last Done Comments Colorectal Cancer Screening: Colonoscopy 1966 Diabetes: Annual Foot Exam 1976 Diabetes: Annual Retina Eye Exam 1976 Hepatitis B Vaccines (1 of 3 - 19+ 3-dose series) 1985 Pneumococcal Vaccine: 50+ Years (2 of 2 - PCV) 05/26/2015 05/26/2014 RSV Immunization Adult Patients (1 - Risk 50-74 years 1-dose series) 2016 HIV Screening 06/01/2022 Medicare Annual Wellness Visit 06/01/2022 Social Influencers of Health Screening 06/01/2022 Breast Cancer Screening 12/13/2023 12/13/19, 02/01/2019, 01/20/2019, Additional history exists Depression Screening 06/23/2024 03/24/2024 COVID-19 Vaccine ( season) 2025 04/13/2023, 04/16/2022, 09/08/2021, Additional history exists Influenza Vaccine (#1) 2025 , 04/01/2022, 04/14/2020, Additional history exists Diabetes: Annual Urine Albumin-Creatinine Ratio (uACR) 03/25/2025 03/25/2024 Diabetes: Blood Sugar Control Test (HGBA1C) 07/07/2025 01/04/2025, 03/25/2024, 03/25/2024 Diabetes: Annual GFR (Glomerular Filtration Rate) 01/04/2026 01/04/2025, 09/06/2024, 03/25/2024, Additional history exists DTaP,Tdap,and Td Vaccines (2 - Td or Tdap) 03/11/2026 03/11/2016 Cholesterol Screening (Lipid Panel) 2028 2023, 2023 Hepatitis C Screening Completed 03/11/2016 Zoster Vaccines Completed 06/12/2021, 01/07/2021 HIB Vaccines Aged Out No longer eligi ble based on patient's age to complete this topic HPV Vaccines Aged Out No longer eligi ble based on patient's age to complete this topic Hepatitis A Vaccines Aged Out No long er eligible based on patient's age to complete this topic IPV Vaccines Aged Out No longer eligi ble based on patient's age to complete this topic MMR Vaccines Aged Out No longer eligi ble based on patient's age to complete this topic Meningococcal ACWY Vaccine Aged Out N o longer eligible based on patient's age to complete this topic Meningococcal B Vaccine Aged Out No l onger eligible based on patient's age to complete this topic RSV Immunization Patients Under 20 months Aged Out No longer eligible based on patient's age to complete this topic Varicella Vaccines Aged Out No longer eligible based on patient's age to complete this topic Goals Goal Patient Goal Type Associated Problems [...] deficits to increase tolerance to daily activities. Procedures Procedure Name Priority Date/Time Associated Diagnosis Comments COMPREHENSIVE METABOLIC PANEL Routine 01/04/2025 11:33 AM EDT Type 2 diabetes mellitus with hyperglycemia, without long-term current use of insulin ([facility]/HCC V24, CMS/HCC V28) Alkaline phosphatase elevation Abnormal CBC Dysuria HEMOGLOBIN A1C Routine 01/04/2025 11:33 AM EDT Type 2 diabetes mellitus with hyperglycemia, without long-term current use of insulin (CMS/HCC V24, CMS/HCC V28) URINE ALBUMIN CREATININE RATIO Routine 03/25/2024 DEPRESSION SCREENING Routine 03/24/2024 LIPID PANEL Routine 2023 SCREENING MAMMOGRAPHY BI 2-VIEW BREAST INC CAD Routine 12/12/2021 2:17 PM EDT Encounter for screening mammogram for malignant neoplasm of breast HEPATITIS C SCREENING Routine 03/11/2016 from Last 3 Months or Most Recently Relevant to Health Maintenance Results * (ABNORMAL) Hemoglobin A1c (01/04/2025 11:33 AM EDT) Hemoglobin A1C 8.8(H) <6.5 % LAB CHEMISTRY METHOD 01/04/2025 10:19 PM EDT [facility] Mean Bld Glu Estim. 206 mg/dL LAB CHEMISTRY METHOD 01/04/2025 10:19 PM EDT [facility] Blood Venous blood specimen / Unknown Venipuncture / Unknown 01/04/2025 11:33 AM EDT 01/04/2025 11:33 AM EDT Agnes MERIDA LAB BLOOD ORDERABLES Fin al Result [facility] [address] [place] [address], [place] [phone] * (ABNORMAL) Comprehensive metabolic panel (01/04/2025 11:33 AM EDT) Sodium 138 133 - 145 mmol/L LAB CHEMISTRY METHOD 01/04/2025 4:55 PM [facility] Potassium 4.2 3.5 - 5.5 mmol/L LAB CHEMISTRY METHOD 01/04/2025 4:55 PM [facility] Chloride 108 96 - 110 mmol/L LAB CHEMISTRY METHOD 01/04/2025 4:55 PM [facility] CO2 24 21 - 32 mmol/L LAB CHEMISTRY METHOD 01/04/2025 4:55 PM [facility] Anion Gap 6 3 - 11 LAB CHEMISTRY METHOD 01/04/2025 4:55 PM [facility] Glucose 224(H) 70 - 100 mg/dL LAB CHEMISTRY METHOD 01/04/2025 4:55 PM [facility] BUN 11 5 - 25 mg/dL LAB CHEMISTRY METHOD 01/04/2025 4:55 PM [facility] Creatinine 0.76 0.50 - 1.10 mg/dL LAB CHEMISTRY METHOD 01/04/2025 4:55 PM [facility] eGFR 91 >=60 mL/min/1. 73m2 LAB CHEMISTRY METHOD 01/04/2025 4:55 PM EDT [facility] Comment:Calculation based on the Chronic Kidney Disease Epidemiology Collaboration (CKD-EPI) equation refit without adjustment for race. BUN/Creatinine Ratio 14.5 LAB CHEMISTRY METHOD 01/04/2025 4:55 PM [facility] Calcium 9.3 8.5 - 10.5 mg/dL LAB CHEMISTRY METHOD 01/04/2025 4:55 PM [facility] AST (SGOT) 11 10 - 42 unit/L LAB CHEMISTRY METHOD 01/04/2025 4:55 PM [facility] ALT (SGPT) 21 10 - 60 unit/L LAB CHEMISTRY METHOD 01/04/2025 4:55 PM [facility] Alkaline Phosphatase 178(H) 42 - 121 unit/L LAB CHEMISTRY METHOD 01/04/2025 4:55 PM [facility] Total Protein 7.0 6.0 - 8.0 g/dL LAB CHEMISTRY METHOD 01/04/2025 4:55 PM [facility] Albumin 3.3 3.2 - 5.0 g/dL LAB CHEMISTRY METHOD 01/04/2025 4:55 PM [facility] Total Bilirubin 0.2 0.0 - 1.4 mg/dL LAB CHEMISTRY METHOD 01/04/2025 4:55 PM [facility] Blood Venous blood specimen / Unknown Venipuncture / Unknown 01/04/2025 11:33 AM EDT 01/04/2025 11:33 AM EDT us Shay Rocha MD LAB BLOOD ORDERABLES Final Result [facility] [address] [place] [address], [place] [phone] * Urine Albumin Creatinine Ratio (03/25/2024) Urine Albumin Creatinine Ratio Abstracted us Historical Provider HEALTH MAINTENANCE Final Result * Depression Screening (03/24/2024) HM Depression Screening Abstracted [facility] Provider HEALTH MAINTENANCE Final Result * Lipid panel (2023) Cholesterol 137 mg/dL Blood Venous blood specimen / Unknown Result [facility] Provider LAB BLOOD ORDERABLES Li l Result * SCREENING MAMMOGRAPHY BI 2-VIEW BREAST INC CAD (12/12/2021 2:17 PM EDT) Anatomical Region Laterality Modality Radiographic Genevieve ging 05/31/2021 9:37 AM EST Narrative 12/13/2021 10:38 AM EDT This is a summary report. The complete report is available in the patient's medical record. If you cannot access the medical record, please contact the sending organization for a detailed fax or copy. Full field digital screening 2D and 3D mammography, reviewed with CAD and compared to previous mammograms dating back to 01/20/2019 with most recent of 02/04/2017. The breasts are composed of fatty and fibroglandular tissue. No suspicious mass, architectural distortion or suspicious calcifications are identified. IMPRESSION: : No mammographic evidence of malignancy. BIRADS 1-Negative; N. 5 year breast cancer risk assessment 1.1 % Lifetime breast cancer risk assessment 7.4 % Breast cancer risk category Low (<15%) Procedure Note Inessa Cage MD - 06/11/2022 This is a summary report. The complete report is available in thepatient's medical record. If you cannot access the medical record, pleasecontact the sending organization for a detailed fax or copy. Full field digital screening 2D and 3D mammography, reviewed with CAD andcompared to previous mammograms dating back to 01/20/2019 with most recentof 02/04/2017. The breasts are composed of fatty and fibroglandulartissue. No suspicious mass, architectural distortion or suspiciouscalcifications are identified. IMPRESSION: : No mammographic evidence of malignancy. BIRADS 1-Negative; N. 5 year breast cancer risk assessment 1.1 % Lifetime breast cancer risk assessment 7.4 % Breast cancer risk category Low (<15%) Maude Barnes DO IMG XR PROCEDURES Final Resul t * Hepatitis C Screening (03/11/2016) Pathologist [facility] Hepatitis C Screening Abstracted Historical Provider MD HEALTH MAINTENANCE Final Result from Last 3 Months or Most Recently Relevant to Health Maintenance Insurance [employer] MEDICARE Member Subscriber Plan / Payer (Ef fective 2022-Present) Name:SHIVANI COHEN Relation to Subscriber:Self Name:Shivani Cohen Payer ID:[id number] Group ID:[id number] Type:Not on file Address: [place] [address] [address] [id number] Care Teams Kennel Keeper Relationship Specialty Start Date End Date Shay Rocha MD [address] [place] [phone] PCP - General 11/22/22
== END 2025-04-18 10:26 | disposition home or self-care (01) ==
LOC: HO.HSM 10:00
PROVIDERS: PCP Internal Medicine; Visit Provider Nurse Practitioner
DX: G43.009 Migraine without aura, not intractable, without status migrainosus (principal); R25.1 Tremor, unspecified; G23.8 Other specified degenerative diseases of basal ganglia; G47.01 Insomnia due to medical condition; M79.18 Myalgia, other site; M25.519 Pain in unspecified shoulder
CPT/HCPCS: 99214

== ENCOUNTER → 2025-04-18 09:59 | Outpatient (BNVA) | payer OTHER, SELFPAY | PROVIDERS: PCP Internal Medicine; Visit Provider Nurse Practitioner | DX: G43.009 Migraine without aura, not intractable, without status migrainosus (principal); G23.8 Other specified degenerative diseases of basal ganglia; M79.18 Myalgia, other site; G47.33 Obstructive sleep apnea (adult) (pediatric); G47.01 Insomnia due to medical condition; M54.2 Cervicalgia; M25.512 Pain in left shoulder | CPT/HCPCS: 99212 ==

== ENCOUNTER 2025-05-03 10:26 | Outpatient (AMB) | payer OTHER, SELFPAY ==
--- OUTSIDE RECORDS SUMMARY | 2024-08-23 09:00 | XMS_ITS ---
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 * Medical History: Objective: * Vitals: Assessment: Plan: * Treatment: * Images: * The named appointment provid er may or may not be the originator of this progress note, and it is not deemed complete until electronically signed by the appointment provider. Sign off status: Pending * Provider: Ricky Ledezma DPM Date: 0 08/23/2024 Generated for Chiquita gama/Mayda/Miltonitting on: 07/03/2024 12:03 PM EST
--- OUTSIDE RECORDS SUMMARY | 2024-11-16 08:00 | XMS_ITS ---
Author Organization [facility] [place] Address [address] [place] [phone] Care Team Providers Care Digital Associate Name Role Phone Shay Rocha Primary Care Provider Unavailab Chino Arreguin Unavailable [phone] Salma Mcfadden Unavailable [phone] Encounters Encounter Location Date Provider Diagnosis [facility] [address] [address] 11/16/2024 Salma Mcfadden Plan Of Treatment No Information Progress Notes * Osvaldo COHENOB:1965 ( 59 yo F)Acc No.[id number]:11/16/2024 Progress Notes Patient: Ninoska SAUNDERS Provider: Noemi Mcfadden DPM :1965 A ge:59 Y S ex:Female Date:11/16/2024 [facility] [facility] [address] [facility] Pcp:Shay Rocha Subjective: * Chief Complaints: * * Medical History: Objective: * Vitals: Assessment: Plan: * Treatment: * Images: * The named appointment provid er may or may not be the originator of this progress note, and it is not deemed complete until electronically signed by the appointment provider. Sign off status: Pending * Provider: Noemi Mcfadden DPM Date: 0 11/16/2024 Generated for Chiquita gama/Mayda/Yuri on: 07/03/2024 12:03 PM EST
--- NOTE | 2025-05-03 10:36 | MHC.OFFVIS ---
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 She is followed in the clinic for her tremor, insomnia, and migraine history. She is here today for trigger point injections for treatment of her headaches. She is also at this time awaiting a sleep study that was ordered at time of last visit as her headaches are likely worsened by untreated BERTA. Per last documented office note from 05/19/2025: She was last seen by Dr. De La Garza in December of 2024 and was continued on a regimen of primidone 50 mg twice daily for tremor, topiramate 50 mg at night for migraine, and quetiapine 50 mg at night for insomnia. Symptoms were stable at that time. 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 PSP could not be excluded. Ninoska tells me today that her tremor has been much better controlled after increasing her primidone back to 50 mg twice daily. She is not sure why the primidone had been dosed at 50 mg nightly for some time. Now that she is getting her daytime dose, she feels that her activities of daily living have been much easier to pursue with her tremor. In terms of migraine, she reports that her migraines have been well controlled with the topiramate 50 mg at nighttime. Her migraines are typically right temporal and frontal associated with light and sound sensitivity as well as nausea. They last a few hours and resolve with sdyp-pvo-afzqzjs ibuprofen generally. In terms of sleep, she reports that her Seroquel has been working well and she feels that she ?sleeps like a baby?. She does however note that she is very drowsy during the day and often has difficulty staying awake during the day. She does note that approximately 2 years ago she had a sleep study in [place] which noted obstructive sleep apnea. She was however not able to tolerate CPAP in the past and has not been ever treated for her BERTA. Her most concerning symptom today is some ongoing neck pain. She has difficulty with range of motion of her neck and general discomfort primarily to the left upper trapezius area and center of the base of her neck. She did have an EMG study in the past which noted a mild cervical radiculopathy bilaterally Prior workup: 07/28/2022 MRI of the brain FINDINGS: BRAIN VOLUME: Dbko-eo-kzamrufk generalized diffuse parenchymal volume loss within the limitations of qualitative assessment. Slightly disproportional midbrain volume loss. STRUCTURAL: No malformations. BRAIN AND MENINGES: DWI sequence demonstrates no restricted diffusion to suggest acute or subacute cerebral ischemia. The brain parenchyma is normal in signal intensity. Gradient refocused imaging demonstrates no abnormal susceptibility-weighted signal loss to suggest hemorrhage, hemosiderin staining or abnormal mineralization. No extra-axial fluid collection, space-occupying process or mass effect is identified. VENTRICLES AND SUBARACHNOID SPACES: The ventricular system and subarachnoid spaces are approximately proportional to the degree of parenchymal volume loss, without hydrocephalus. ORBITAL STRUCTURES: The visualized orbital structures are grossly unremarkable within the limitations of the study. VASCULAR: Signal voids are noted in the visualized major intracranial vessels. OSSEOUS STRUCTURES, SINUSES/MASTOIDS, EXTRACRANIAL SOFT TISSUES: Unremarkable. MR/MR head/brain wo con IMPRESSION: 1. Limited exam due to motion artifact. 2. No acute intracranial process identified. No evidence for acute or subacute infarct, hemorrhage, extra-axial fluid collection, space-occupying process, mass effect or hydrocephalus and no significant brain signal abnormalities are seen. 3. Mqxf-ci-xeetszlt generalized diffuse brain parenchymal volume loss. Slightly disproportional midbrain volume loss is suspected. Cannot exclude progressive supranuclear palsy. EMG study 09/2023: Moderate bilateral median neuropathy across the carpal tunnel. Chronic bilateral mid cervical radiculopathy. [facility] Medical History (Updated 04/18/25 @ 10:38 by Humaira Morgan CNP) Carpal tunnel syndrome Carpal tunnel syndrome, bilateral upper limbs Olivopontocerebellar atrophy Ataxia Migraine Dyskinesia Chronic headaches Pancreatitis Insomnia Panic disorder Depression Anxiety Chronic back pain Obesity GERD (gastroesophageal reflux disease) Asthma Diabetes Surgical History History of hip surgery H/O left wrist surgery H/O: hysterectomy Social History Alcohol intake: never Patient Tobacco Use Status: Never used Tobacco Review of Systems Const All systems reviewed & are unremarkable except as noted in HPI and below Physical Exam Vital Signs: Last Vital Signs Pulse 105 H 05/03/25 10:41 Resp 17 05/03/25 10:41 BP 132/80 05/03/25 10:41 Pulse Ox 100 05/03/25 10:41 Oxygen Delivery Method Room Air 05/03/25 10:41 BMI result Body Mass Index 39.5 Const General: cooperative, healthy appearing, comfortable and no acute distress Nutritional Appearance: well nourished Orientation/consciousness: patient oriented x3 Limitations: no limitations HEENT Head: Yes normal to inspection and Yes normocephalic Eyes General: appearance normal, both eyes and all related structures Visual Barreto: normal visual barreto by confrontation Alignment and Position: alignment normal Periorbital: periorbital findings normal Eyelids: Yes eyelids normal Conjunctivae: conjunctivae normal Sclerae: sclerae normal Back/Spine/Pelvis Other: Bilateral L>R trigger points and myofacial tenderness Cervical Spine: pain with cervical ROM Neuro General: patient oriented x3 Cranial nerves: Yes CN's II-XII intact bilaterally and Yes Facial sensation intact/muscles of mastication intact Cognition (Neuro): normal cognition Gait exam (Neuro): Normal gait present Motor exam (neuro): no tremor noted Sensory Exam: double simultaneous stimulation for sensation normal Romberg Test: Negative Pupils: Normal pupillary reactivity/response: bilateral Psych Appearance: grossly normal Mental Status: mental status grossly normal Speech and movement: Normal speech and movement present and Clear speech present Affect: normal affect Attitude: cooperative Thought process: Normal thought process present Thought content: Normal thought content present Insight: Good insight present (Psych) Judgement: Good judgement present (Psych) Office Procedures Therapeutic Injection Therapeutic Injection Details: Trigger point injection procedure: Laterally:Bilateral Indications: Chronic headaches, myofascial pain Following universal hygiene protocol, after explaining the risks and benefits as well as hazards of the procedure to the patient, consent was signed and placed in the chart. Time-out prior to starting the procedure was performed. The areas over the bilateral trapezius muscles were cleansed with alcohol. 2 Sites in each trapezius muscle injected with a 27 gauge 1.5 in needle with myofascial spasm. Patient tolerated the procedure well, localized bleeding was controlled. Patient monitored in the clinic for 15 minutes for complications. Patient was discharged home with instructions to apply ice to the back of their head as needed. 16519-[id number] Point Injection 3 or more All charges added?: Procedure code (CPT) selection complete Office Meds bupivacaine (PF) 0.25 % (2.5 mg/mL) injection solution Performing Provider: Humaira Morgan CNP Performing Location: [facility] [place] [facility] Administered by: Humaira Morgan CNP on 05/03/25 10:59 Dose Route Admin Location Dispensed Lot Number Expiration Date [facility] Dye Range Operator Cloth 4 mL Infiltration 10 mL [id number] [employer] Partnered Total Dispensed Waste 10 mL 60 % Assessment & Plan Assessment & Plan (1) Migraine without aura, not intractable, without status migrainosus: Code(s): G43.009 - Migraine without aura, not intractable, without status migrainosus Category: Medical (2) Muscle pain, myofascial: Code(s): M79.18 - Myalgia, other site Category: Medical (3) Trigger point of shoulder region: Code(s): M25.519 - Pain in unspecified shoulder Category: Medical (4) Tremor: Code(s): R25.1 - Tremor, unspecified Category: Medical (5) Olivopontocerebellar atrophy: Comment: Meds tried for shaking/dyskinesia: Austedo NCV/EMG UE Moderate bilateral median neuropathy across the Carpal tunnel. Chronic bilateral mid cervical radiculopathy. 02/24/24. Gustine disease test at [facility] in Apr 2023: Negative CT brain WO at [facility] in 2017: Mild atrophy MRI brain WO at [facility] in May 2023: mild to mod diff atroph, somewhat more in brainstem and cerebellum, caudate are ok. Code(s): G23.8 - Other specified degenerative diseases of basal ganglia Category: Medical (6) Insomnia: Code(s): G47.00 - Insomnia, unspecified Category: Medical Qualifiers: Insomnia type: due to medical condition Qualified Code(s): G47.01 - Insomnia due to medical condition Plan Ninoska is a 59-year-old female patient with a past medical history of anxiety, depression, chronic back pain, asthma, tremor, insomnia, and migraine. Her tremor is well controlled currently on primidone 50 mg twice daily and her migraines are well controlled on topiramate 50 mg nightly. Of greater concern is her daytime somnolence and untreated BERTA. She is willing to try CPAP therapy but at this point we should undergo another in-lab study with titration as her last study was over 2 years ago. In regards to her neck pain, she does have some obvious trigger points and generalized myofascial pain L>R. At time of last visit I recommended trigger point injections and she is here today to have them completed. The procedure was preformed without complications and josef was discharged at baseline home with ice and self care. Notably, she does have some cervical radiculopathy. We could consider imaging of the C-spine if her radicular symptoms become more severe. - still awaitingin-lab sleep study -trigger point injections to the trapezius muscles performed today -all rx refilled at last visit Orders: Orders AMB Trigger Point Injection Today G43.009 - Migraine without aura, not intractable, without status migrainosus, M25.519 - Pain in unspecified shoulder, M79.18 - Myalgia, other site Coding Level of Care Code Est Pt Level 2 (10953) Diagnoses Migraine without aura, not intractable, without status migrainosus G43.009 Muscle pain, myofascial M79.18 Trigger point of shoulder region M25.519 Tremor R25.1 Olivopontocerebellar atrophy G23.8 Insomnia due to medical condition G47.01 Insomnia type: due to medical condition CPT Codes Therapeutic Injection - Ther Injection 2: [id number] Point Injection 3 or more ([id number])
[2025-05-03 10:41] VITALS: BP 132/80; PULSE 105; RESP 17; O2SAT 100; BMI 39.5
--- OUTSIDE RECORDS SUMMARY | 2025-05-03 12:04 | XMS_ITS | Data Portability ---
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 Memory worsening could relate to sleep apnea for which she has some suggestive signs/symptoms. We will get appropriate workup. Previous discussions: Mid 2018: Her boyfriend has noticed a little worse memory, a little worse twitching. This is not sufficiently definitive to be progression to make a diagnosis of Blue Mountain s disease more likely. Moreover, the behavioral changes that make it even more likely have not emerged. She would turn to her boyfriend if her memory worsens so that she needs help in this context. I asked that she bring her boyfriend in and we discuss the reason: Blue Mountain s disease in all likelihood will cause [...] relief of twitching that might relate to Blue Mountain s disease (it might also help with [...] monitor. We have discussed the horizon of Mahad s disease, this time for the first time with her significant other present. I think she understands that for thought, planning ahead, for how she might move toward help when she needs it, it is important. My recommendations on this is detailed in the planning below. To review, her oouisz-ur-qjv has said that she is sometimes stubborn about letting people help. 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 EEG [...] further directions for diagnostic inquiry. Most particularly, Blue [place] gene evaluation is not an option as insurance have agreed to pay, but there is a co-pay. The patient cannot afford the co-pay. The fact that there is Mahad s disease in her maternal family line but her mother does not have Mahad s disease is somewhat unusual. Reduced penetrance can be seen, however, when there are relatively few (but still abnormally high) CAG repeats in the Blue Mountain gene (Mahad s disease is a triplicate [...] and then more helpful immunomodulatory medication. PLAN [facility] March 15, 2021 To help headaches: CONTINUE amitriptyline, 25 mg tablets, one tablet at bedtime To help your abnormal movements that seem to be from Blue Mountain s disease, CONTINUE Deutetrabenazine (also known as [...] important, and will become more important as Blue Mountain's disease slowly gets worse. You agree that [...] you would also consider moving toward assisted-living i f I have to. Please investigate specific assisted living places to find a place that suits your needs. Informed him that you have Blue Mountain's disease and that he will have slowly [...] a day for twitching that likely reflects Blue Mountain's disease, given response to Austedo, gene testing not an option given co-pay situation, context Early summer 2015 onset of twitching, context family history of Mahad s disease, with subsequent evolving memory problems [...] foot tapping. Motor dyscontrol may occur with Mahad's disease and perhaps this is the answer. Unfortunately, there is no treatment for Blue [place]'s disease voluntary motor dyscontrol. Austedo treats the [...] also help with the involuntary movements of Blue Mountain's disease and is in reserve. MEMORY Assisted living facilities have told her she is too young. Her son now lives with her and helps with caregiving so she does not feel a pressing need to move forward with assisted living. With Blue Mountain's disease, assisted living should be an option. I have given her contact information [facility] to see if they can be [...] point. We have discussed the horizon of Blue Mountain s disease, including once with her significant other present. I think she understands that for thought, planning ahead, for how she might move toward help when she needs it, it is important. To review, her sqgfzh-kl-mzm has said that she is sometimes stubborn about letting people help. 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 EEG [...] the co-pay. The fact that there is Blue Mountain s disease in her maternal family line but her mother does not have Blue Mountain s disease is somewhat unusual. Reduced penetrance [...] and then more helpful immunomodulatory medication. PLAN [facility] September 20, 2021 HEADACHES ---- You have worsening headaches in the morning and you snore, therefore, I am referring you to sleep medicine to look for sleep apnea: Sleep medicine referral for morning headaches, snoring, with concern for sleep apnea. [place] [address] The sleep medicine facility should call you [...] should be able to have assisted living. [facility] offers a career technical education teacher and a nurse sales development manager to help you through the bureaucracy toward moving toward assisted living. If you tell them you have Blue Mountain's disease, I believe they will ignore your age and help you although I am not sure. Please call them to find out: [facility] [employer]. [address] [place] [address] Web: [email or web address] Cognivue testing of cognition Cognivue is a [...] abnormal movements that seem to be from Blue Mountain's disease, INCREASE Deutetrabenazine (also known as Austedo) [...] in this direction. Please allow [place] or [employer] transportation service to provide necessary transportation (medical appointments; shopping). Follow-up in 2 months for Cognivue testing of memory and for going over results afterwards. Mark Figueroa MD, PhD [facility] [email or web address] Not available 09/20/2021 17:39:15 11/22/2021 11/22/2021 IMPRESSION: [...] a day for twitching that likely reflects Mahad's disease, given response to Austedo, gene testing not an option given co-pay situation, context Early summer 2015 onset of twitching, context family history of Blue [place] s disease, with subsequent evolving memory problems [...] option. I have given her contact information [facility] to see if they can be [...] it, it is important. To review, her akjhvs-kd-qyk has said that she is sometimes stubborn about letting people help. STIFFNESS AND TWITCHING Twitching is better on 15 mg twice daily then on 12 mg twice daily. It is not perfect. She would like to try 18 mg twice daily again. Context: Neurological exam reveals dysrhythmic relatively small finger tapping and foot tapping. Motor dyscontrol may occur with Blue Mountain's disease and perhaps this is the answer. Unfortunately, there is no treatment for Blue Mountain's disease voluntary motor dyscontrol. Meir treats the [...] also help with the involuntary movements of Blue Mountain's disease and is in reserve. 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 EEG [...] the co-pay. The fact that there is Blue Mountain s disease in her maternal family line but her mother does not have Mahad s disease is somewhat unusual. Reduced penetrance can be seen, however, when there are relatively few (but still abnormally high) CAG repeats in the Blue Mountain gene (Mahad s disease is a triplicate [...] and then more helpful immunomodulatory medication. PLAN [facility] November 22, 2021 HEADACHES AND SLEEP You have worsening headaches in the morning and you snore, therefore, I am referring you to sleep medicine to look for sleep apnea: They have called you but you are out and you have forgotten to call back. Please call them back at your earliest convenience using the information below: [place] [address] The sleep medicine facility should call you [...] abnormal movements that seem to be from Blue Mountain's disease, INCREASE Deutetrabenazine (also known as Austedo) [...] in this direction. Please allow [place] or [employer] transportation service to provide necessary transportation (medical appointments; shopping). Follow-up in 2 months to understand how the higher dose of Austedo helped and to understand how referral to sleep medicine is going Mark Figueroa MD, PhD [facility] mrossen Not available 11/22/2021 15:13:08 01/01/2023 [...] a day for twitching that likely reflects Blue Mountain's disease, given response to Austedo, gene testing not an option given co-pay situation, context Early summer 2015 onset of twitching, context family history of Blue [place] s disease, with subsequent evolving memory problems [...] wonders about a note stating she has Mahad's disease. I am not certain about this and her presentation is not typical from the behavioral aspect t here does not seem to be the behavioral [...] I have given her contact information [facility] to see if they can be [...] it, it is important. To review, her tpitct-ca-wae has said that she is sometimes stubborn about letting people help. STIFFNESS AND TWITCHING Twitching is better on 15 mg twice daily then on 12 mg twice daily. It is not perfect. She would like to try 18 mg twice daily again. Context: Neurological exam reveals dysrhythmic relatively small finger tapping and foot tapping. Motor dyscontrol may occur with Blue Mountain's disease and perhaps this is the answer. Unfortunately, there is no treatment for Mahad's disease voluntary motor dyscontrol. Meir treats the [...] disease and is in reserve. 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 EEG [...] further directions for diagnostic inquiry. Most particularly, [place] gene evaluation is not an option as insurance have agreed to pay, but there is a co-pay. The patient cannot afford the co-pay. The fact that there is Blue Mountain s disease in her maternal family line but her mother does not have Blue Mountain s disease is somewhat unusual. Reduced penetrance can be seen, however, when there are relatively few (but still abnormally high) CAG repeats in the Blue Mountain gene (Mahad s disease is a triplicate [...] and then more helpful immunomodulatory medication. PLAN [facility] January 01, 2023 HEADACHES AND SLEEP You have worsening headaches in the morning and you snore, therefore, I am referring you to sleep medicine to look for sleep apnea: They have called you but you are out and you have forgotten to call back. Please call them back at your earliest convenience using the information below: [place] [address] The sleep medicine facility should call you [...] in this direction. Please allow [place] or [employer] transportation service to provide necessary transportation (medical appointments; shopping). Follow-up in 2 months to understand how the higher dose of Austedo helped and to understand how referral to sleep medicine is going Mark Figueroa MD, PhD [facility] rossana Not available 01/01/2023 12:46:51 03/04/2023 [...] a day for twitching that likely reflects Blue Mountain's disease, given response to Austedo, gene testing not an option given co-pay situation, context Early summer 2015 onset of twitching, context family history of Blue Mountain s disease, with subsequent evolving memory problems [...] her significant problems such as this tremor i f it is a side effect. >>>>>>>>>>>January 01, 2023 We agree that we will increase the Austedo up to 21 mg twice daily as she is having no side effects yet suboptimal benefit on 18 mg twice daily. She wonders about a note stating she has Mahad's disease. I am not certain about this and her presentation is not typical from the behavioral aspect t here does not seem to be the behavioral [...] to move forward with assisted living. With Blue Mountain's disease, assisted living should be an option. I have given her contact information [facility] to see if they can be [...] point. We have discussed the horizon of Blue Mountain s disease, including once with her significant other present. I think she understands that for thought, planning ahead, for how she might move toward help when she needs it, it is important. To review, her lfykvn-ws-lls has said that she is sometimes stubborn about letting people help. STIFFNESS AND TWITCHING Twitching is better on 15 mg twice daily then on 12 mg twice daily. It is not perfect. She would like to try 18 mg twice daily again. Context: Neurological exam reveals dysrhythmic relatively small finger tapping and foot tapping. Motor dyscontrol may occur with Mahad's disease and perhaps this is the answer. Unfortunately, there is no treatment for Blue Mountain's disease voluntary motor dyscontrol. Meir treats the [...] also help with the involuntary movements of Blue Mountain's disease and is in reserve. DIAGNOSTIC PATHWAY [...] further directions for diagnostic inquiry. Most particularly, Blue [place] gene evaluation is not an option as insurance have agreed to pay, but there is a co-pay. The patient cannot afford the co-pay. The fact that there is Blue Mountain s disease in her maternal family line but her mother does not have Blue Mountain s disease is somewhat unusual. Reduced penetrance can be seen, however, when there are relatively few (but still abnormally high) CAG repeats in the Blue Mountain gene (Blue Mountain s disease is a triplicate repeat disease). [...] and then more helpful immunomodulatory medication. PLAN [facility] March 04, 2023 HEADACHES AND SLEEP You [...] the information below: Sleep medicine services of [address] [address] The sleep medicine facility should call you [...] that seem to be from Mahad's disease, DECREASE Deutetrabenazine (also known as Austedo) [...] in this direction. Please allow [place] or [employer] transportation service to provide necessary transportation (medical appointments; shopping). Follow-up in 3-4 weeks to understand how the lower dose of Austedo helped and to understand how referral to sleep medicine for headaches is going & to consider amitriptyline increase Mark Figueroa MD, PhD [facility] [email or web address] Not available 03/04/2023 14:47:08 Plan of Treatment Reminders Order Date Submit Date Provider Last Modified By Organization Details Last Modified Time Details Appointments None recorded. Lab TSH, serum or plasma - E07.[address] [facility] [address] [place], [address], 3 16:11:36 T4, free, serum - E07.9 2022 [facility] [facility] ([facility] [address] [place], [address], 3 16:11:36 Referral sleep medicine referral 2021 022 [email or web address] 1 [facility], [address] [facility] [address], [place], [address], 2 09:55:56 sleep medicine referral 2021 022 [email or web address] 1 [facility], [address] [facility] [address], [place], [address], 2 16:28:50 Procedures None recorded. Surgeries None recorded. Imaging None recorded. Medication Orders Austedo 9 mg tablet 2022 023 [facility], [address] [place], [address], 3 14:32:36 Austedo 9 mg tablet 2022 023 [facility] [place], [address], 3 12:43:23 Austedo 12 mg tablet 2022 023 ro[facility], [address] [place], [address], 3 14:30:50 amitriptyli ne 50 mg tablet 2022 023 [facility], [address] [place], [address], 3 12:43:17 Austedo 9 mg tablet 2021 022 [facility] [place], [address], 2 15:03:15 Austedo 6 mg tablet 2021 022 [email or web address] 1 [facility], [address] [place], [address], 3 14:51:54 amitriptyli ne 25 mg tablet 2021 022 [facility], [address] [place], [address], 2 17:07:43 Austedo 12 mg tablet 2020 021 rossana [facility], [address] [place], [address], 3 14:30:50 amitriptyli ne 25 mg tablet 2020 021 [facility], [address] [place], [address], 1 12:27:39 Patient TargetsNo targets recorded. Patient Instructions [...] should be able to have assisted living. [facility] [employer] offers a career technical education teacher and a nurse sales development manager to help you through the bureaucracy toward moving toward assisted living. If you tell them you have Mahad's disease, I believe they will ignore your age and help you although I am not sure. Please call them to find out: [facility] [employer] [address] [place] [address] Web: [email or web address] Cognivue testing of cognition Cognivue is a [...] going to slowly worsen, likely related to Blue Mountain's disease. Memory problems are likely to slowly worsen. I have recommended investigation of assisted living. Facilities have told you you are too young. However, you have a disease that causes cognitive slowing at a younger age and I believe that you should be able to have assisted living. [facility] [facility] offers a career technical education teacher and a nurse sales development manager to help you through the bureaucracy toward moving toward assisted living. If you tell them you have Blue Mountain's disease, I believe they will ignore your age and help you although I am not sure. Please call them to find out: [facility] [employer] [facility] [address] [place] [address] Web: [email or web address] Cognivue testing of cognition Cognivue [...] Chronic condition with exacerbation; prescription medication management [email or web address] Not available 01/01/2023 12:47:09 03/04/2023 [id number] September 20, 2021: She has not called that she does not feel it is necessary yet as of November 22, the following referral with rationale is held in reserve should the situation change: MEMORY -------- You have memory problems that are likely going to slowly worsen, likely related to Blue Mountain's disease. Memory problems are likely to slowly worsen. I have recommended investigation of assisted living. Facilities have told you you are too young. However, you have a disease that causes cognitive slowing at a younger age and I believe that you should be able to have assisted living. [facility] offers a career technical education teacher and a nurse sales development manager to help you through the bureaucracy toward moving toward assisted living. If you tell them you have Mahad's disease, I believe they will ignore your age and help you although I am not sure. Please call them to find out: [facility] [employer] [facility] [address] [place] [address] Web: [email or web address] Cognivue testing of cognition Cognivue is a [...] greater than 50% greater than 40 minutes [email or web address] Not available 03/04/2023 14:47:19 Reason for Referral Sleep Medicine Referral for Obstructive sleep apnea syndrome Referring Physician: Mark Figueroa, Neurology, Encounter Date: 09/20/2021 Sleep Medicine Referral for Obstructive sleep apnea syndrome Referring Physician: Mark Figueroa, Neurology, Encounter Date: 11/22/2021 Problems Name Problem SNOMED Code Status Onset Date Resolution Date Notes Provider Name and Address Organization Details Recorded Time 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 Procedures Surgical History Date Name Laterality Status Provider Name and Address Organization Details Recorded Time DATA REVIEW completed Mark Figueroa MD [address] [place], [place] [address], [address], [facility] 03/04/2023 14:20:43 3 Cognivue completed Mark Figueroa MD [address] [place], [place] [address]D[place], [address], [facility] 03/04/2023 14:20:43 3 DATA REVIEW completed Mark Figueroa MD [address] [place], [place] [address]D[place], [address], [facility] 01/01/2023 12:18:23 3 Cognivue completed Mark Figueroa MD [address] [place], [place] [address]ToriDovPAOLA mcclain, [address], [facility] 01/01/2023 12:18:23 2 DATA REVIEW completed Mark Figueroa MD [address] [place], [place] [address]ToriDovPAOLA [place]cclain, [address], [facility] 11/22/2021 14:39:28 2 Cognivue completed Mark Figueroa MD [address] [place], [place] [address]ToriHometownPAOLA [place]cclain, [address], [facility] 11/22/2021 14:50:08 2 DATA REVIEW completed Mark Figueroa MD [address] [place] [address] [place], [address], [facility] 09/20/2021 16:07:56 1 DATA REVIEW completed Mark Figueroa MD [address] [place], [place] [address]ToriHometownPAOLA [place], [address], [facility] 03/15/2021 12:15:51 Imaging Results None recorded. 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 chorea 5875 6001 G10 Extrapyram idal disease 95261879 G25.9 4579 Mark Figueroa MD [facility] [address] [place] [address] Issa [place] [address] 09/20/2021 15:46:26 09/24/2021 11:29:36 Migraine without aura 80352493 G43.009 Blue [place]'s chorea 5875 6001 G10 Extrapyram idal disease 48020946 G25.9 Obstructiv e sleep apnea syndrome 22492515 G47.33 5317 Mark Figueroa MD [facility] [address] [place] [address] Issa [place] [address] 11/22/2021 14:21:25 11/22/2021 18:07:08 Migraine without aura 18195367 G43.009 [place]'s chorea 5875 6001 G10 Extrapyram idal disease 08514858 G25.9 Obstructiv e sleep apnea syndrome 65444647 G47.33 [id number] Mark Figueroa MD [facility] [address] [place] [address] Issa FINLEYDOVPAOLA MCCLAIN [address] 01/01/2023 11:35:01 01/01/2023 16:10:14 Migraine without aura 34952515 G43.009 Extrapyram idal disease 60555383 G25.9 Blue [place]'s chorea 5875 6001 G10 [id number] Mark Figueroa MD [facility] [address] [place] [address] Issa [place] [address] 03/04/2023 13:41:16 03/04/2023 17:30:17 Extrapyramidal disease 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 G25.9 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 Health Concerns Section Related Observation LastModified by Organization Detai ls LastModified Time None Recorded Concern Status LastModified by Organization Details LastModified Time None Recorded Advance Directives Directive None Recorded Payers Insurance Date Sequence Insurance Name Policy Number Policy Calzada Covered Member ID Calzada Member ID Guarantor Name 03/04/2023 2 [place] [facility] Ninoska Lemon [place] [id number] [facility] 03/04/2023 2 [place] [employer] [employer] Ninsoka Lemon [place] [id number] [facility] 03/10/[address] [facility] - DOS ON OR AFTER 2022 - SNF OPTIONS AND ONE CARE (MEDICARE REPLACEMENT/ADV ANTAGE - PPO) Ninoska Lemon [place] [id number] [facility] Notes Date Note Type Note Provider Name and Address Organization Details Recorded Time 03/15/2021 text/html OLDFollow up of twitching. She is accompanied by Mateo, her boyfriend, who provide support. Not here: [id number], Sujata. Since January 11, 2020 neurology follow-up [...] symptoms of this condition. Mark Figueroa MD [address] [place] [address] [place], [phone], [place] [facility] 03/15/2021 12:53:05 09/20/2021 text/html Follow up of twitching. She is accompanied by Mateo, her boyfriend, who provide support. Not here: [id number], Sujata. Since March 15, 2021 neurology follow-up [...] symptoms of this condition. Mark Figueroa MD [address] [place] [address] [place], [phone], [facility] 09/20/2021 17:40:01 11/22/2021 text/html Follow up of twitching. She is accompanied by Mateo, her boyfriend, who provide support. Not here: [id number], Sujata. Since September 20, 2021 neurology follow-up [...] that caregiving she is getting is sufficient f rom her boyfriend Mateo as well as from [...] is too young. She has not called [facility] Elder services to try to help coordinate [...] symptoms of this condition. Mark Figueroa MD [address] [place] [address] [place], [phone], [facility] 11/22/2021 15:18:09 01/01/2023 text/html Follow up of twitching. She is accompanied by Mateo, her boyfriend, who provide support. Not here: [id number], Sujata. Since November 22, 2021 neurology follow-up [...] that caregiving she is getting is sufficient f rom her boyfriend Mateo as well as from [...] is too young. She has not called [facility] Elder services to try to help coordinate [...] symptoms of this condition. Mark Figueroa MD [address] [place] [address] [place], [phone], [facility] 01/01/2023 12:47:29 03/04/2023 text/html Follow up of twitching. She is accompanied by Mateo, her boyfriend, who provide support. Not here: [id number], Sujata. >>>>>>>>>>>>>>>>> Septemer 2022Since January 01, 2023 [...] that caregiving she is getting is sufficient f rom her boyfriend Mateo as well as from [...] is too young. She has not called [facility] Elder services to try to help coordinate [...] symptoms of this condition. Mark Figueroa MD [address] [place] [address] [place], [phone], [facility] 03/04/2023 14:47:34 OBGyn Episode No OBEpisode recorded.
--- OUTSIDE RECORDS SUMMARY | 2025-05-03 12:04 | XMS_ITS | Encounter Summary ---
Author Organization [facility] Address [id number] [place] [phone] Care Team Providers Care Investment Broker Name Role Phone Shay Rocha MD Primary Care Provider [phone] Encounter Details Date Type Department Care Team (Late Contact Info) Description 04/27/2025 Results Follow-Up Adult Medicine [address] [phone] Shay Rocha MD [address] [place] [address] Social History Tobacco Use Types Packs/Day Years [...] AM EDT documented as of this encounter Plan of Treatment Upcoming Encounters Date Type Department Care Team (Late Contact Info) Description 06/27/2025 11:45 AM EST Office Visit Urogynecology - [address] [phone] Jen Quan MD [address] [place] [phone] 07/27/2025 1:30 PM EST Office Visit Adult Medicine [address] [phone] Shay Rocha MD [address] [place] [address] 07/29/2025 2:20 PM EST Office Visit Endocrinology [address] [phone] Edwin Valiente MD [address] [place] [address] 10/27/2025 11:00 AM EDT Office Visit Gastroenterology - [address] [phone] Kassandra Prado, EP SPECIALIST [address] [phone] documented as of this encounter Goals Goal [...] on filedocumented in this encounter Care Teams Investment Broker Relationship Specialty Start Date End Date Shay Rocha MD [address] [place] [phone] PCP - General 11/22/22 documented as of this encounter
--- OUTSIDE RECORDS SUMMARY | 2025-05-03 12:04 | XMS_ITS | Clinical Summary ---
Author Organization [facility] [address] [place] [address] [place] [phone] Phone Care Team Providers Care Manager Lean Name Role Phone Shay Rocha MD Primary Care Provider [phone] Allergies Active Allergy Reactions Criticality Noted Date Comments Amoxicillin Rash 04/30/2012 Amoxicillin [Kdc:amoxicillin+edetic Acid+sodium Benzoate] Morphine 05/10/2020 shakes Medications flash glucose scanning reader (AtonarpStDatahug Marlee 2 Anderson) misc 1 Device by Does not apply route continuous. 023 Active reservoir inhalation (INSPIREASE) device Use inhalers through spacer 023 Active acetaminophen (TYLENOL 8 HOUR) 650 mg 8 hr tablet Take 1 Tablet by mouth every 8 hours as needed for Pain. 024 Active primidone (MYSOLINE) 50 mg tablet 024 Active topiramate (TOPAMAX) 50 mg tablet 024 Active nfqjrdhhzdfa-Gc-x sandra-minerals 18-0.4 mg tablet Take 1 each by mouth 1 (one) time each day. Multiple Vitamins-Iron (Tab-A-Timothy/I sandra/Beta Carotene) Tab TAKE 1 TABLET BY MOUTH DAILY. 90 each 1 025 Active albuterol HFA (Ventolin HFA) 90 mcg/actuation inhaler Inhale 2 puffs by mouth every 4 (four) hours if needed for wheezing or shortness of breath. 8 g 5 025 2025 Active mometasone (NASONEX) 50 mcg/actuation nasal spray Administer 2 sprays into each nostril 2 (two) times a day. 17 g 025 2025 Active pen needle, diabetic 32 gauge [...] water or juice. 60 packet 2025 Active freestyle 28 gauge lancetsIndication s:Diabetes mellitus type 2 with neurological manifestations ([facility]/HCC V24, [facility] V28) Check blood sugar four times a day or as directed 100 each 2025 Active FreeStyle Test test stripIndications: Diabetes mellitus type 2 with neurological manifestations ([facility] V24, [facility] V28) Check blood sugar four times a day or as directed 100 each 2025 Active diclofenac (VOLTAREN) 1 % topical gel Apply 2 g topically 2 (two) times a day if needed (backache). 100 g Active gabapentin (NEURONTIN) 100 mg capsule Take 2 Capsules by mouth every morning AND 3 Capsules at bedtime. 450 capsule 1 Active blood-glucose meter kitIndications:Di abetes mellitus type 2 with neurological manifestations (CMS/HCC V24, [facility] V28) Use daily or as directed for monitoring of diabetes 1 each 025 2025 Active blood-glucose sensor (FreeStyle Marlee 3 Plus Sensor) deviceIndications :Diabetes mellitus type 2 with neurological manifestations (CMS/HCC V24, [facility] V28) Change sensor every 15 days 6 each 1 Active Lactobacillus acidophilus capsule Take 1 capsule by mouth 2 (two) times a day. 180 capsule 3 025 2025 Active blood-glucose,rec eiver,cont (FreeStyle Marlee 3 Anderson) miscIndications:D iabetes mellitus type 2 with neurological manifestations ([facility] V24, [facility] V28) Used to check blood sugars 1 each Active SITagliptin phosphate (Januvia) 50 mg tablet Take 1 tablet (50 mg total) by mouth 1 (one) time each day. 90 tablet 1 Active metFORMIN XR (GLUCOPHAGE-XR) 500 mg 24 hr tablet Take 1 tablet (500 mg total) by mouth 2 (two) times a day. Do not crush, chew, or split. 180 tablet 025 Active busPIRone (BUSPAR) 7.5 mg tablet Take 1 tablet (7.5 mg total) by mouth 1 (one) time each day. 90 tablet Active fluticasone-umecl idinium-vilantero l (TRELEGY ELLIPTA) 200-62.5-25 mcg inhaler Inhale 1 puff (200 mcg total) by mouth 1 (one) time each day. 1 each 025 Active polyethylene glycol (Miralax) 17 gram/dose oral powder Take 17 g by mouth 1 (one) time each day. 1530 g 025 Active senna-docusate (PERICOLACE) 8.6-50 mg per tablet Take 1 tablet by mouth 2 (two) times a day. 180 tablet 025 Active simvastatin (ZOCOR) 20 mg tablet Take 1 tablet (20 mg total) by mouth at bedtime. at bedtime 90 tablet 025 Active tiZANidine (ZANAFLEX) 4 mg tablet [...] hyperglycemia, without long-term current use of insulin ([facility] V24, [facility] V28) INJECT 44 UNITS INTO THE SKIN AT BEDTIME 3 Pen 2 025 Active blood sugar diagnostic (FreeStyle Lite Strips) test stripIndications: Diabetes mellitus type 2 with neurological manifestations ([facility] V24, [facility] V28) USE TO TEST BLOOD SUGAR 4 [...] (BACTRIM DS,SEPTRA DS) 800-160 mg per tablet 025 Active traMADoL (ULTRAM) 50 mg tablet Take 1 tablet (50 mg total) by mouth. 023 Active meclizine (ANTIVERT) 25 mg tablet TAKE 1 TABLET BY MOUTH 3 TIMES DAILY NEEDED FOR DIZZINESS. 90 tablet 1 025 Active nortriptyline (PAMELOR) 10 mg capsule TAKE 2 CAPSULES BY MOUTH EVERY DAY AT BEDTIME 60 capsule 4 025 Active sucralfate (CARAFATE) 100 mg/mL suspension Take 10 mL (1 g total) by mouth 4 (four) times a day (before meals and nightly). Take 1 hour before meals and at bedtime 3600 mL 025 2025 Active dicyclomine (BENTYL) 20 mg tablet Take 1 tablet (20 mg total) by mouth 4 (four) times a day if needed (Abdominal cramping). 360 each 025 2025 Active pantoprazole (PROTONIX) 40 mg EC tablet Take 1 tablet (40 mg total) by mouth 2 (two) times a day before meals. Do not crush, chew, or split. 180 each 3 025 2025 Active vibegron (GEMTESA) 75 mg tablet tablet Take 1 tablet (75 mg total) by mouth 1 (one) time each day. 90 tablet 1 Active glipiZIDE (GLUCOTROL) 10 mg tabletIndications :Diabetes mellitus type 2 with neurological manifestations (CMS/HCC V24, CMS/HCC V28) TAKE (1) TABLET BY MOUTH DAILY 28 tablet 3 Active insulin aspart (NovoLOG Flexpen U-100 Insulin) 100 unit/mL (3 mL) injection pen Inject up to 14 units into the skin 3 times a day 15 mL 5 Active ondansetron ODT (ZOFRAN-ODT) 4 mg disintegrating tablet Take 1 Tablet by mouth every 8 hours as needed. 2024 Discontinued(R eorder) mirabegron (Myrbetriq) 25 mg 24 hr tablet Take 1 tablet (25 mg total) by mouth 1 (one) time each day. 90 tablet 1 025 2024 Discontinued glipiZIDE (GLUCOTROL) 10 mg tablet TAKE 1 TABLET BY MOUTH EVERY DAY 28 tablet 5 025 2024 Discontinued nortriptyline (PAMELOR) 10 mg capsule TAKE 2 [...] pain/spasm). 90 capsule 4 025 2024 Discontinued insulin aspart (NovoLOG Flexpen U-100 Insulin) 100 unit/mL (3 mL) injection pen Inject up to 12 units into the skin 3 times a day 15 mL 5 025 2024 Discontinued(R eorder) polyethylene glycol-electrolyt es (NULYTELY) 420 gram solution 024 2024 Discontinued(T herapy completed) esomeprazole (NexIUM) [address] capsuleIndication s:Gastroesophagea l reflux disease without esophagitis Take 1 capsule (40 mg total) by mouth 2 (two) times a day before meals. Do not open capsule. 180 each 3 025 2024 Discontinued ondansetron ODT (ZOFRAN-ODT) 4 mg disintegrating tabletIndications :Nausea Take 1 tablet (4 mg total) by mouth every 8 (eight) hours if needed for nausea for up to 20 days. 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, [facility] V28) 08/11/2023 Insomnia 04/30/2023 Migraine without status migrainosus, not intract able 01/28/2023 Asthma 11/22/2022 Hyperlipidemia 04/01/2022 COVID-19 virus infection 05/28/2021 Overview (03/26/2024): 11.15.21 Type 2 diabetes mellitus wit h hyperglycemia, without long-term current use of insulin ([facility] V24, [facility] V28) 12/10/2019 Chronic bilateral low back pain without sciatica 12/14/2018 Panic disorder 06/11/2018 Vertigo 11/02/2015 Hip dysplasia, congenital 01/15/2012 Anxiety and depression 02/11/2008 Allergic rhinitis 11/10/2007 GERD (gastroesophageal reflux disease) 7 Overview (03/26/2024): treated with Prilosec, Biaxin, Amox for H Pylori - 02/26 Headache 07/30/2006 Overview (03/26/2024): treated with verapamil Urge incontinence 07/30/2006 Encounters Date Type Department Care Team Description 04/27/2025 2:20 PM EST Lab Draw [address] Type 2 diabetes mellitus with hyperglycemia, without long-term current use of insulin ([facility] V24, [facility] V28); Migraine without aura and without status migrainosus, not intractable; Irritable bowel syndrome with constipation; Mixed hyperlipidemia; Gastroesophageal reflux disease without esophagitis; Mild persistent asthma without complication; Anxiety and depression 04/27/2025 1:30 PM EST Office Visit Endocrinology - [address] [phone] Felice Christianson MD Type 2 diabetes mellitus with hyperglycemia, without long-term current use of insulin ([facility] V24, [facility] V28) (Primary Dx) 04/27/2025 Results Follow-Up Adult Medicine [address] [phone] Shay Rocha MD 04/25/2025 2:00 PM EST Office Visit Adult Medicine [address] [phone] Agnes Ayala PA Type 2 diabetes mellitus with hyperglycemia, without long-term current use of insulin ([facility] V24, [facility] V28) (Primary Dx); Migraine without aura and without status migrainosus, not intractable; Irritable bowel syndrome with constipation; Mixed hyperlipidemia; Gastroesophageal reflux disease without esophagitis; Mild persistent asthma without complication; Anxiety and depression 04/20/2025 1:00 PM EDT Office Visit Urogynecolog[address] [phone] Jen Quan MD Urge incontinence (Primary Dx); Genitourinary syndrome of menopause; Urinary urgency; Urinary frequency; Nocturia; Urinary incontinence, post-void dribbling 04/14/2025 Telephone Gastroenterology [address] [phone] Kassandra Prado, RUSS 04/07/2025 11:20 AM EDT Office Visit [address] [phone] Kassandra Prado, RUSS Gastroesophageal reflux disease without esophagitis (Primary Dx); Abdominal discomfort, epigastric; Nausea 04/07/[address] [phone] Kassandra Prado, RUSS 04/06/2025 1:00 PM EDT Office Visit Urogynecolog[address] [phone] Neetu Ortiz MD Urinary urgency (Primary Dx) 02/17/2025 Telephone Adult Medicine [address] [phone] Shay Rocha MD 02/17/2025 Telephone Adult Medicine [address] [phone] Shay Rocha MD 02/15/2025 Telephone Adult Medicine [address] [phone] Gerardo Ponce LPN 02/09/2025 Telephone Adult Medicine [address] [phone] Shay Rocha MD from Last 3 Months [...] Date Site/Laterality Comments OTHER SURGICAL HISTORY PROCEDURE: DC ARTHROSCOPY HIP DIAGNOSTIC W/WO SYNOVIAL BYP SPX; COMMENT: dysplasia at child age 9 bilaterally TUBAL LIGATION 199 PROCEDURE: HISTORICAL TUBAL LIGATION; COMMENT: after having 2 sons '90 & '92 WRIST SURGERY -08/2013 Dr Arechiga Left PROCEDURE: HISTORICAL WRIST SURGERY; COMMENT: [facility], plates for Fx OTHER SURGICAL HISTORY PROCEDURE: DC TOTAL ABDOMINAL HYSTERECT W/WO RMVL TUBE OVARY; [...] obesity with BMI of 4 0.0-44.9, adult ([facility] V24, [facility] V28) 07/30/2006 DX:Morbid obesity wit h BMI of 40.0-44.9, adult ([facility]) Panic disorder 06/11/2018 DX:Panic disorde r Allergic rhinitis 11/10/2007 DX:Allergic rh initis Headache 07/30/2006 DX:Headache; COM MENT: treated with verapamil Hip dysplasia, congenital 01/15/2012 DX:Hip dysplasia, congenital Restless leg syndrome 06/11/2018 DX:Restles s leg syndrome Vertigo 11/02/2015 DX:Vertigo History of pancreatitis 06/01/2021 DX:Histo ry of pancreatitis Hyperlipidemia 04/01/2022 DX:Hyperlipidemi a Diabetes mellitus ([facility] V 24, [facility] V28) Diverticulitis Family History Medical History Relation [...] Sign Reading Time Taken Comments Blood Pressure 125/60 04/27/2025 1:34 PM EST Pulse 111 04/27/2025 1:34 PM EST Temperature 36.3 C (97.4 F) 04/25/2025 1:50 PM EST Respiratory Rate 15 04/27/2025 1:34 PM EST Oxygen Saturation 96% 04/07/2025 11:13 AM EDT Inhaled Oxygen Concentration - - Weight 105 kg (232 lb) 04/27/2025 1:34 PM EST Height 162.6 cm (5' 4 ) 04/27/2025 1:34 PM EST Body Mass Index 39.82 04/27/2025 1:34 PM EST Plan of Treatment Upcoming Encounters Date Type Department Care Team (Late st Contact Info) Description 06/27/2025 11:45 AM EST Office Visit Urogynecology [address] [phone] Jen Quan MD [address] [facility] [address] [place] [address] 07/27/2025 1:30 PM EST Office Visit Adult Medicine [place] - [address] [phone] Shay Rocha MD [address] [place] [address] 07/29/2025 2:20 PM EST Office Visit Endocrinology - [address] [phone] Edwin Valiente MD [address] [place] [address] 10/27/2025 11:00 AM EDT Office Visit Gastroenterology - [address] [facility] [address] [phone] Kassandra Prado, RUSS [address] [address] Health Maintenance Due Date Last Done Comments [...] Health Screening 06/01/2022 Breast Cancer Screening 12/13/2023 12/13/19 22, 02/01/2019, 01/20/2019, Additional history exists Depression Screening 06/23/2024 03/24/2024 COVID-19 Vaccine ( season) 2025 04/13/2023, 04/16/2022, 09/08/2021, Additional history exists Influenza Vaccine (#1) 2025 , 04/01/2022, 04/14/2020, Additional history exists Diabetes: Blood Sugar Control Test (HGBA1C) 10/25/2025 04/27/2025, 01/04/2025, 03/25/2024, Additional history exists DTaP,Tdap,and Td Vaccines (2 - Td or Tdap) 03/11/2026 03/11/2016 Diabetes: Annual Urine Albumin-Creatinine Ratio (uACR) 04/27/2026 04/27/2025, 03/25/2024 Diabetes: Annual GFR (Glomerular Filtration Rate) 04/27/2026 04/27/2025, 01/04/2025, 09/06/2024, Additional history exists Cholesterol Screening (Lipid Panel) 2028 2023, 2023 [...] Procedure Name Priority Date/Time Associated Diagnosis Comments HEMOGLOBIN A1C Routine 04/27/2025 2:27 PM EST Type 2 diabetes mellitus with hyperglycemia, without long-term current use of insulin ([facility] V24, [facility] V28) Migraine without aura and without status migrainosus, not intractable Irritable bowel syndrome with constipation Mixed hyperlipidemia Gastroesophageal reflux disease without esophagitis Mild persistent asthma without complication Anxiety and depression COMPREHENSIVE METABOLIC PANEL Routine 04/27/2025 2:27 PM EST Type 2 diabetes mellitus with hyperglycemia, without long-term current use of insulin (CMS/HCC V24, CMS/HCC V28) Migraine without aura and without status migrainosus, not intractable Irritable bowel syndrome with constipation Mixed hyperlipidemia Gastroesophageal reflux disease without esophagitis Mild persistent asthma without complication Anxiety and depression MICROALBUMIN CREATININE URINE RATIO Routine 04/27/2025 2:27 PM EST Type 2 diabetes mellitus with hyperglycemia, without long-term current use of insulin ([facility] V24, CMS/HCC V28) Migraine without aura and without status migrainosus, not intractable Irritable bowel syndrome with constipation Mixed hyperlipidemia Gastroesophageal reflux disease without esophagitis Mild persistent asthma without complication Anxiety and depression HM DEPRESSION SCREENING Routine 03/24/2024 LIPID PANEL Routine 2023 SCREENING MAMMOGRAPHY BI 2-VIEW BREAST INC CAD Routine 12/12/2021 2:17 PM EDT Encounter for screening mammogram for malignant neoplasm of breast HEPATITIS C SCREENING Routine 03/11/2016 from Last 3 Months or Most Recently Relevant to Health Maintenance Results * Microalbumin creatinine urine ratio (04/27/2025 2:27 PM EST) Creatinine, Urine 157.0 mg/dL LAB CHEMISTRY METHOD 04/27/2025 5:54 PM EST [facility] Microalb, Ur 14.8 0.0 - 29.0 mg/L LAB CHEMISTRY METHOD 04/27/2025 5:54 PM EST [facility] Microalb/Creat Ratio 9 <30 mg/g creat LAB CHEMISTRY METHOD 04/27/2025 5:54 PM EST [facility] Urine Urine specimen obtained by clean catch procedure / Unknown Non-blood Collection / Unknown 04/27/2025 2:27 PM EST 04/27/2025 2:27 PM EST Agnes MERIDA LAB URINE ORDERABLES Fin al Result [facility] [address] [place] [address], * (ABNORMAL) Hemoglobin A1c (04/27/2025 2:27 PM EST) Hemoglobin A1C 7.6(H) <6.5 % LAB CHEMISTRY METHOD 04/28/2025 1:35 PM EST [facility] Mean Bld Glu Estim. 171 mg/dL LAB CHEMISTRY METHOD 04/28/2025 1:35 PM EST [facility] Blood Venous blood specimen / Unknown Venipuncture / Unknown 04/27/2025 2:27 PM EST 04/27/2025 2:27 PM EST Agnes MERIDA LAB BLOOD ORDERABLES Fin al Result [facility] [address] [place] [address], [place] [phone] * (ABNORMAL) Comprehensive metabolic panel (04/27/2025 2:27 PM EST) Sodium 137 133 - 145 mmol/L LAB CHEMISTRY METHOD 04/27/2025 6:21 PM [facility] Potassium 4.1 3.5 - 5.5 mmol/L LAB CHEMISTRY METHOD 04/27/2025 6:21 PM [facility] Chloride 107 96 - 110 mmol/L LAB CHEMISTRY METHOD 04/27/2025 6:21 PM [facility] CO2 25 21 - 32 mmol/L LAB CHEMISTRY METHOD 04/27/2025 6:21 PM [facility] Anion Gap 5 3 - 11 LAB CHEMISTRY METHOD 04/27/2025 6:21 PM [facility] Glucose 172(H) 70 - 100 mg/dL LAB CHEMISTRY METHOD 04/27/2025 6:21 PM [facility] BUN 11 5 - 25 mg/dL LAB CHEMISTRY METHOD 04/27/2025 6:21 PM [facility] Creatinine 0.81 0.50 - 1.10 mg/dL LAB CHEMISTRY METHOD 04/27/2025 6:21 PM [facility] eGFR 84 >=60 mL/min/1. 73m2 LAB CHEMISTRY METHOD 04/27/2025 6:21 PM [facility] Comment:Calculation based on the Chronic Kidney Disease Epidemiology Collaboration (CKD-EPI) equation refit without adjustment for race. BUN/Creatinine Ratio 13.6 LAB CHEMISTRY METHOD 04/27/2025 6:21 PM [facility] Calcium 9.4 8.5 - 10.5 mg/dL LAB CHEMISTRY METHOD 04/27/2025 6:21 PM [facility] AST (SGOT) 10 10 - 42 unit/L LAB CHEMISTRY METHOD 04/27/2025 6:21 PM [facility] ALT (SGPT) 16 10 - 60 unit/L LAB CHEMISTRY METHOD 04/27/2025 6:21 PM [facility] Alkaline Phosphatase 174(H) 42 - 121 unit/L LAB CHEMISTRY METHOD 04/27/2025 6:21 PM [facility] Total Protein 7.1 6.0 - 8.0 g/dL LAB CHEMISTRY METHOD 04/27/2025 6:21 PM [facility] Albumin 3.3 3.2 - 5.0 g/dL LAB CHEMISTRY METHOD 04/27/2025 6:21 PM [facility] Total Bilirubin 0.2 0.0 - 1.4 mg/dL LAB CHEMISTRY METHOD 04/27/2025 6:21 PM [facility] Blood Venous blood specimen / Unknown Venipuncture / Unknown 04/27/2025 2:27 PM EST 04/27/2025 2:27 PM EST Agnes MERIDA LAB BLOOD ORDERABLES Fin al Result [facility] [address] [place] [address], * Depression Screening (03/24/2024) Depression Screening Abstracted Historical Provider HEALTH MAINTENANCE Final Result * Lipid panel (2023) Cholesterol 137 mg/dL Blood Venous blood specimen / Unknown Historical Provider LAB BLOOD ORDERABLES Li l Result [...] Resul t * Hepatitis C Screening (03/11/2016) Hepatitis C Screening Abstracted Historical Provider HEALTH MAINTENANCE Final Result from Last 3 Months or Most Recently Relevant to Health Maintenance Insurance [id number] [place] [address] [employer] Member Subscriber Plan / Payer (Ef fective 2022-Present) Name:SHIVANI ROONEY Relation to Subscriber:Self Name:Shivani Rooney Payer ID:[id number] Group ID:[id number] Type:Not on file Address: [place] [address] [address] [phone] Care Teams Manager Lean Relationship Specialty Start Date End Date Shay Rocha MD [address] [place] [phone] PCP - General 11/22/22
--- OUTSIDE RECORDS SUMMARY | 2025-05-03 12:04 | XMS_ITS | Data Portability ---
Author Organization [place] [facility], Allergy Address [address] [place] [address] Assessment Encounter Date Assessment Date Assessment LastModified by Organization Details LastModified Time 01/31/2025 01/31/2025 59 year old mj campbell presents for evaluation of dizziness. Audiometric testing demonstrates borderline normal sloping to moderately severe sensorineural hearing loss with Type A tympanograms bilaterally. Otoscopic examination is unremarkable without evidence of effusion or infection. However, Shakira-Hallpike test was positive for bilateral rotary nystagmus. We discussed that the patient has two underlying conditions contributing to her dizziness, the first being benign paroxysmal positional vertigo (BPPV). The pathophysiology was discussed in detail. She was provided with a referral to [facility] for Ramob maneuvers and vestibular therapy.Treatment for BPPV can require anywhere from 1 to 6 treatments for successful results and has approximately 95% success rate in eliminating symptoms, though it can recur. The second condition most likely responsible for the majority of her dizzy spells is vestibular migraine (migraine-associat ed dizziness). Today, we discussed the pathophysiology of migraine and migraine-associate d phenomena such as dizziness and visual aura. We discussed how the patient's balance disturbance symptoms are likely mediated by a central processing abnormality rather than an isolated inner ear abnormality. I gave the patient a significant amount of literature to review at home regarding how there are many environmental and dietary triggers that can lead to not only migraine headaches but balance disturbance symptoms as well. We spent a lot of time discussing the importance of following a migraine diet. We have offered the patient a copy of the Migraine More than a Headache handout to read at home, which gives a xxkw-or-wloa discussion on what causes migraine and how to make the necessary lifestyle and dietary changes to significantly reduce or eliminate migraine symptoms. I have also recommended the use of dietary supplements such as magnesium, vitamin B2, and feverfew, which have been shown to help control migrainous phenomena. We discussed dosage and schedule for these supplements. We discussed alternative of using Migranol, which contains a combination of magnesium, vitamin B2, and feverfew. Patient is currently taking topiramate as prescribed by her neurologist for migraines, in addition to nortriptyline 20 mg daily from her primary care physician. Recommend following up with both of them for continued management. I also highly encouraged her to keep a migraine diary to identify and eliminate possible triggers. Patient understands and agrees with this plan. Follow up as needed otherwise. [email or web address] Not available 01/31/2025 17:38:08 Plan of Treatment Reminders Order Date Submit Date Provider Last Modified By Organization Details Last Modified Time Details Appointments None record ed. Lab None record ed. Referral None record ed. Procedures None record ed. Surgeries None record ed. Imaging None record ed. Medication Orders None record ed. Patient TargetsNo targets recorded. Patient InstructionsNo instructions recorded. Reason for Referral None Reported. Results Created Date Observation Date Name Description Value Unit Range Abnormal Flag Note LastModifiedBy Organization Detail LastModifiedTime 02/01/20 25 audio gram No observ ation record ed. BARCODE Not Available 2024 18:51:32 Result Notes None recorded. Problems Name Problem SNOMED Code Status Onset Date Resolution Date Notes Provider Name and Address Organization Details Recorded Time Dizziness and giddiness 288284130 Active 2015 Dizziness and giddiness; Note: Date Diagnosed: 12/29/2015 11:05 AM (R42) Not Available [facility] 4 02:51:39 Sensorine ural hearing loss of bilateral ears 725026631 Active 2015 Sensorineu ral hearing loss, bilateral; Note: Date Diagnosed: 12/29/2015 11:05 AM (H90.3) Not Available [facility] 4 02:51:38 Benign paroxysma l positiona l vertigo 827768199 Active 2015 Benign paroxysmal vertigo, left ear; Note: Date Diagnosed: 12/29/2015 11:26 AM (H81.12) Not Available [facility] 4 02:51:36 Headache 58237886 Active 2015 Headache; Note: Date Diagnosed: 12/29/2015 11:21 AM (R51) Not Available [facility] 4 02:51:39 Sensorine ural hearing loss of bilateral ears 095990364 Active [address],[place] Formerly named [facility], [place], [address] , [facility] 14:09:24 Benign paroxysma l positiona l vertigo 447676499 Active 2024 F[address]AD CHOW [address], [facility], [address] , [place] [facility] [place] 17:35:12 Migraine variants 125718804 Active 2024 FUAD CHOW [address] Formerly named [facility], [facility], [address] , [place] [facility] 17:35:36 Migraine with aura 0213995 Active 2024 FUAD CHOW [address] [address], [facility], [address] , [place] [facility] 17:36:30 Problem Notes None recorded. Procedures Surgical History Date Name Laterality Status Provider Name and Address Organization Details Recorded Time 02/01/20 25 Comp Audio with Tymps - 22349 & 70668 completed FREDERIC MAST [address],[place] [address], [place], [address], [place] [facility] 01/31/2025 14:09:05 hysterectomy completed Delia Naranjo [place] - [facility] 01/31/2025 14:29:54 operative procedure on peripheral nerve completed Delia Motyka [place] - [facility] 01/31/2025 14:30:31 Imaging Results None recorded. Procedure Notes None recorded. Medical Equipment None Reported. Allergies Allergen ID Allergen Name Allergen Category Reaction Reaction Severity Criticality Documentation Date Start Date Code Code System Note Provider Name and Address Organization Details Recorded Time [id number] amoxicill in medicatio n other Not available Not available 11/04/2023 723 RxNorm React ion: unkno wn, unspe cifie d;; Not Available [facility] 4 01:12:16 459459 morphine medicatio n Not available Not available Not available 01/31/2025 7052 RxNorm Delia cummings [place] - [facility] 5 14:35:53 Medications Name Sig Start Date Stop Date Status Note LastModified by Organization Details LastModified Time primidone 50 mg tablet TAKE 1 TABLET BY MOUTH TWICE A DAY active Not Available Not Available No t Available citalopram 40 mg tablet TAKE 1 TABLET BY MOUTH EVERY DAY active Not Available Not Available No t Available tizanidine 4 mg tablet TAKE 1 TABLET BY MOUTH TWICE A DAY NEEDED FOR MUSCLE SPASMS active Not Available Not Available No t Available medroxypro gesterone 2.5 mg tablet TAKE 1 TABLET BY MOUTH EVERY DAY active Not Available Not Available No t Available glipizide 10 mg tablet TAKE 1 TABLET BY MOUTH EVERY DAY active Not Available Not Available No t Available prednisone 20 mg tablet PLEASE SEE ATTACHED FOR DETAILED DIRECTION S active Not Available Not Available No t Available omeprazole 40 mg capsule,de layed release TAKE 1 CAPSULE BY MOUTH EVERY MORNING BEFORE BREAKFAST DO NOT CRUSH OR CHEW active Not Available Not Available No t Available tramadol 50 mg tablet TAKE 1 TABLET BY MOUTH EVERY 8 TO 10 HOURS NEEDED FOR PAIN active Not Available Not Available No t Available acetaminop hen ER 650 mg tablet,ext ended release TAKE 1 TABLET BY MOUTH EVERY 8 HOURS NEEDED PAIN active Not Available Not Available No t Available citalopram 20 mg tablet 2014 active Medicatio n ID: [id number] Du ration Value: 30 Brand Name: citalopra m Send Method: E-Prescri bed Subs Allowed: subs OK Specia l Instructi on: TAKE 1 & 1/2 TABS BY MOUTH DAILY. Me dicationG enericNam e: citalopra m Not Available Not Available Not Available famotidine 20 mg tablet TAKE 1 TABLET BY MOUTH TWICE A DAY active Not Available Not Available No t Available meclizine 25 mg tablet 2015 active Medicatio n ID: [id number] Du ration Value: 10 Brand Name: meclizine Send Method: E-Prescri bed Subs Allowed: subs OK Specia l Instructi on: TAKE 1 TO 2 TABLETS BY MOUTH 3 TIMES A DAY NEEDED FOR DIZZINESS Medicati onGeneric Name: meclizine Not Available Not Available Not Available simvastati n 20 mg tablet TAKE 1 TABLET BY MOUTH AT BEDTIME active Not Available Not Available No t Available nortriptyl ine 10 mg capsule TAKE 2 CAPSULES BY MOUTH EVERY DAY AT BEDTIME active Not Available Not Available No t Available Daily Vites/Iron tablet 2015 active Medicatio n ID: [id number] Du ration Value: 30 Brand Name: Daily Vites/Iro n Send Method: E-Prescri bed Subs Allowed: subs OK Specia l Instructi on: TAKE 1 TABLET BY MOUTH EVERY DAY Medic ationGene ricName: Daily Vites/Iro n Not Available Not Available Not Available mometasone 50 mcg/actuat ion nasal spray ADMINISTE R 2 SPRAYS INTO EACH NOSTRIL 2 TIMES DAILY active Not Available Not Available No t Available buspirone 7.5 mg tablet TAKE 1 TABLET BY MOUTH EVERY DAY active Not Available Not Available No t Available omeprazole 20 mg capsule,de layed release 2015 active Medicatio n ID: [id number] Du ration Value: 30 Brand Name: omeprazol e Send Method: E-Prescri bed Subs Allowed: subs OK Specia l Instructi on: TAKE ONE CAPSULE BY MOUTH DAILY Med icationGe nericName : omeprazol e Not Available Not Available Not Available gabapentin 100 mg capsule TAKE 2 CAPSULES BY MOUTH EVERY MORNING AND TAKE 3 CAPSULES AT BEDTIME active Not Available Not Available No t Available estradiol 0.5 mg tablet TAKE 1 TABLET BY MOUTH EVERY DAY active Not Available Not Available No t Available estradiol 0.01% (0.1 mg/gram) vaginal cream PLEASE SEE ATTACHED FOR DETAILED DIRECTION S active Not Available Not Available No t Available albuterol sulfate HFA 90 mcg/actuat ion aerosol inhaler INHALE 2 PUFFS BY MOUTH EVERY 4 HOURS NEEDED FOR SHORTNESS OF BREATH OR WHEEZING active Not Available Not Available No t Available oxybutynin chloride 5 mg tablet 2015 active Medicatio n ID: [id number] Du ration Value: 30 Brand Name: oxybutyni n chloride Send Method: E-Prescri bed Subs Allowed: subs OK Specia l Instructi on: TAKE 1 TAB BY MOUTH 3 TIMES DAILY. Tx dicationG enericNam e: oxybutyni n chloride Not Available Not Available Not Available ondansetro n 4 mg disintegra ting tablet TAKE 1 TABLET BY MOUTH EVERY 8 HOURS NEEDED FOR NAUSEA/VO MITING active Not Available Not Available No t Available metformin ER 500 mg tablet,ext ended release 24 hr TAKE 1 TABLET BY MOUTH TWICE A DAY active Not Available Not Available No t Available dicyclomin e 10 mg capsule TAKE 1 CAPSULE BY MOUTH 3 TIMES A DAY NEEDED FOR ABDOMINAL PAIN/SPAS M active Not Available Not Available No t Available nabumetone 500 mg tablet 2015 active Medicatio n ID: [id number] Du ration Value: 15 Brand Name: ruba wilkinson Send Method: E-Prescri bed Subs Allowed: subs OK Specia l Instructi on: TAKE 1 TABLET BY MOUTH TWICE A DAY NEEDED FOR PAIN Medi cationGen ericName: nabumeton e Not Available Not Available Not Available Novolog FlexPen U-100 Insulin aspart 100 unit/mL (3 mL) subcutaneo us INJECT UP TO 12 UNITS SUBCUTANE OUSLY 3 TIMES A DAY active Not Available Not Available No t Available topiramate 50 mg tablet TAKE 1 TABLET BY MOUTH EVERY DAY active Not Available Not Available No t Available Januvia 50 mg tablet TAKE 1 TABLET BY MOUTH EVERY DAY active Not Available Not Available No t Available FreeStyle Lite Strips USED TO TEST BLOOD SUGAR 4 TIMES DAILY. active Not Available Not Available No t Available Lantus Solostar U-100 Insulin 100 unit/mL (3 mL) subcutaneo us pen INJECT 50 UNITS INTO THE SKIN AT BEDTIME active Not Available Not Available No t Available FreeStyle [place] Lite kit USE DIRECTED TO CHECK BLOOD SUGAR ONCE A DAY. active Not Available Not Available No t Available diclofenac 1 % topical gel APPLY 2 G TOPICALLY 2 (TWO) TIMES A DAY IF NEEDED (BACKACHE ). active Not Available Not Available No t Available melatonin 5 mg tablet TAKE 1 TABLET BY MOUTH AT BEDTIME active Not Available Not Available No t Available pen needle, diabetic 32 gauge x 5/32 USE TO INJECT INSULIN UP TO 4 TIMES DAILY active Not Available Not Available No t Available Myrbetriq 25 mg tablet,ext ended release TAKE 1 TABLET BY MOUTH EVERY DAY active Not Available Not Available No t Available Stimulant Laxative Plus 8.6 mg-50 mg tablet TAKE 1 TABLET BY MOUTH TWICE A DAY active Not Available Not Available No t Available FreeStyle Marlee 2 Sensor kit APPLY TOPICALLY EVERY 14 DAYS active Not Available Not Available No t Available Trelegy Ellipta 200 mcg-62.5 mcg-25 mcg powder for inhalation INHALE 1 PUFF BY MOUTH EVERY DAY active Not Available Not Available No t Available Tab-A-Timothy Multivitam in w-iron 15 mg iron-400 mcg tablet TAKE 1 TABLET BY MOUTH EVERY DAY active Not Available Not Available No t Available Vitals Date Recorded Body height Body mass index (BMI) Body weight Provider Name and Address Organization Details Last Updated DateTime 01/31/2025 162.56 cm 38.8 kg/m2 454464.88 g Delia Naranjo [place] - [facility] 01/31/2025 14:35:26 Social History None recorded. Functional Status None recorded. Mental Status None recorded. Family History Nothing Reported. Medical History Condition Response Allergies/Hayfever N Heart Problems N Anxiety Y Tonsil Infections N Emphysema N Migraines N Thyroid Problems N Glaucoma N Depression Y COPD N Developmental Delay N Nasal or Sinus Problems N Anemia Y Immune System Disorder N Anesthesia Complications N Heart Attack ([place]) N Other Skin Condition N Diabetes Y Rhinitis N Bleeding Disorder N Food Allergy N Arthritis Y Hearing Loss N Hyperlipidemia N Cancer N Stroke N Dementia N Nasal polyps N Asthma Y High Cholesterol N Sleep Disorder N GERD/Reflux N Liver Disease N Headaches N Fibromyalgia N Hypertension N Speech Delay N Kidney Disease N Gynecological HistoryNo gynecological history recorded. Obstetrics History GPAL:G 0 P 0 0 0 0 Past Encounters Encounter ID Performer Location Encounter Start Date Encounter Closed Date Diagnosis/Indication Diagnosis SNOMED-CT Code Diagnosis ICD10 Code Diagnosis IMO Codes Diagnosis Note [id number] FUAD CHOW [facility] of [address] [address] 01/31/2025 14:06:08 01/31/2025 15:20:53 Sensorineural hearing loss of bilateral ears [id number] H90.3 [id number] Audiologic al evaluation results:Matthias rderline normal sloping to moderately -severe sensorineu ral hearing loss with excellent word recognitio n, bilaterall y. Tympanomet ry:Right Ear:Type ALeft Ear:Type A Benign par oxysmal positional vertigo 230901834 H81.13 26329472 Migraine variants 025731 005 G43.809 58236041 Migraine with aura 27298 06 G43.907 [id number] Health Concerns Section Related Observation LastModified by Organization Detai ls LastModified Time None Recorded Concern Status LastModified by Organization Details LastModified Time None Recorded Advance Directives Directive None Recorded Payers Insurance Date Sequence Insurance Name Policy Number Policy Calzada Covered Member ID Calzada Member ID Guarantor Name 01/31/2025 1 [facility] - DOS ON OR AFTER 2022 - ONE CARE (MEDICARE REPLACEMENT/ADV ANTAGE - HMO) Ninoska Ion [place] [id number] [facility] 01/31/2025 1 [facility] - DOS ON OR AFTER 2022 - MEDICARE [place]VANTAGE [place] (MEDICARE REPLACEMENT/ADV ANTAGE - PPO) [facility] [id number] [facility] Notes Date Note Type Note Provider Name and Address Organization Details Recorded Time 01/31/2025 text/html ROS as noted in the HPI 59 year old female presents for evaluation of dizziness. Patient reports intermittent dizziness beginning 5 years ago, described as room-spinning in quality. These episodes typically last for days before resolving on their own. Longest episode lasted a week. Some dizzy spells are triggered by rapid head movements. She has tried vestibular therapy in the past with minimal improvement. Patient takes Meclizine as needed for debilitating spells. Denies associated fluctuations in hearing and tinnitus. She does see a neurologist for migraines which are fairly managed with topiramate which she started a couple years ago. The frequency of the headaches has improved to once monthly. Her migraines are usually accompanied by scotomas, photophobia, and phonophobia. SHASHANK YORK MD [address] [place] [address], [phone], [facility] - [facility] 02/02/2025 08:35:56 OBGyn Episode No OBEpisode recorded.
--- OUTSIDE RECORDS SUMMARY | 2025-05-03 12:04 | XMS_ITS | Patient Health Record ---
Author Organization [facility] Marjorie shant [place] Address [address] [place] [address] Care Team Providers Care Submarine Element Coordinator Name Role Phone Shay Rocha Primary Care Provider Unavailab Chino Arreguin Unavailable [phone] Salma Mcfadden Unavailable [phone] Reason For Referral No Information Encounters Encounter Location Date [facility] [address] [facility] [address] [place] [address] 11/08/2024 Salma Mcfadden Plan Of Treatment No Information Insurance Providers Payer Name Payer Address Payer Phone Subscriber Number Group Number Insured Name Patient Relationship to Insured Coverage Start Date Coverage End Date [facility] [employer] Claims [address] FUAD [address]aji [id number] Ninoska Rooney Self - patient is the insured
--- OUTSIDE RECORDS SUMMARY | 2025-05-03 12:04 | XMS_ITS | Continuity of Care Document ---
Author Organization [place] - [facility], [facility] Address [address] [place] [address] Assessment Encounter Date Assessment Date Assessment LastModified by Organization Details LastModified Time 01/31/2025 01/31/2025 59 year old mj campbell presents for evaluation of dizziness. Audiometric testing demonstrates borderline normal sloping to moderately severe sensorineural hearing loss with Type A tympanograms bilaterally. Otoscopic examination is unremarkable without evidence of effusion or infection. However, [place]-Hallpike test was positive for bilateral rotary nystagmus. We discussed that the patient has two underlying conditions contributing to her dizziness, the first being benign paroxysmal positional vertigo (BPPV). The pathophysiology was discussed in detail. She was provided with a referral to AT for Rambo maneuvers and vestibular therapy.Treatment for BPPV can [...] to read at home, which gives a [id number] discussion on what causes migraine and how [...] Organization Details Recorded Time Dizziness and giddiness 384745894 Active 2015 Dizziness and giddiness; Note: Date Diagnosed: 12/29/2015 11:05 AM (R42) Not Available [facility] 4 02:51:39 Sensorine ural hearing loss of bilateral ears 650925004 Active 2015 Sensorineu ral hearing loss, bilateral; Note: Date Diagnosed: 12/29/2015 11:05 AM (H90.3) Not Available [facility] 4 02:51:38 Benign paroxysma l positiona l vertigo 045050156 Active 2015 Benign paroxysmal vertigo, left ear; Note: Date Diagnosed: 12/29/2015 11:26 AM (H81.12) Not Available [facility] 4 02:51:36 Headache 11921992 Active 2015 Headache; Note: Date Diagnosed: 12/29/2015 11:21 AM (R51) Not Available [facility] 4 02:51:39 Sensorine ural hearing loss of bilateral ears 791187518 Active 2024 FREDERIC MAST [address], [place], [address] , [place] - [facility] 14:09:24 Benign paroxysma l positiona l vertigo 671893929 Active 2024 FUAD CHOW [address], [place], [address] , [place] - [facility] 17:35:12 Migraine variants 191689195 Active 2024 FUAD CHOW [address], [place], [address] , [place] - [facility] 17:35:36 Migraine with aura 2782613 Active 2024 FUAD CHOW [address], [place], [address] , [place] - [facility] 17:36:30 Problem Notes None recorded. Procedures Surgical History Date Name Laterality Status Provider Name and Address Organization Details Recorded Time 02/01/20 25 Comp Audio with Tymps - 53518 & 37131 completed FREDERIC MAST [address], [place], [address], [place] - [facility] 01/31/2025 14:09:05 hysterectomy completed Delia Jose A [place] - [facility] 01/31/2025 14:29:54 operative procedure on peripheral nerve completed Delia Motyka [place] - [facility] 01/31/2025 14:30:31 Imaging Results None recorded. Procedure Notes None recorded. Medical Equipment None Reported. Allergies Allergen ID Allergen Name Allergen Category Reaction Reaction Severity Criticality Documentation Date Start Date Code Code System Note Provider Name and Address Organization Details Recorded Time [id number] amoxicill in medicatio n other Not available Not available 11/04/2023 723 RxNorm React ion: unkno wn, unspe cifie d;; Not Available [facility] 4 01:12:16 251987 morphine medicatio n Not available Not available Not available 01/31/2025 7052 RxNorm Delia cummings [place] - [facility] 5 14:35:53 Medications Name Sig Start [...] mg tablet 2014 active Medicatio n ID: [id number] Du ration Value: 30 Brand Name: citalopra [...] mg tablet 2015 active Medicatio n ID: [id number] Du ration Value: 10 Brand Name: meclizine [...] Vites/Iron tablet 2015 active Medicatio n ID: [id number] Du ration Value: 30 Brand Name: Daily [...] layed release 2015 active Medicatio n ID: [id number] Du ration Value: 30 Brand Name: omeprazol [...] mg tablet 2015 active Medicatio n ID: [id number] Du ration Value: 30 Brand Name: oxybutyni n chloride Send Method: E-Prescri bed Subs Allowed: subs OK Specia l Instructi on: TAKE 1 TAB BY MOUTH 3 TIMES DAILY. Me dicationG enericNam e: oxybutyni n chloride Not [...] mg tablet 2015 active Medicatio n ID: [id number] Du ration Value: 15 Brand Name: nabumeton jaja Send Method: E-Prescri bed Subs Allowed: subs [...] Available Not Available No t Available FreeStyle Bartlett Lite kit USE DIRECTED TO CHECK BLOOD [...] Available pen needle, diabetic 32 gauge x 32 USE TO INJECT INSULIN UP TO 4 [...] Updated DateTime 01/31/2025 162.56 cm 38.8 kg/m2 957818.88 g Delia Naranjo [place] - [facility] 01/31/2025 14:35:26 Social History None recorded. [...] Disorder N Anesthesia Complications N Heart Attack ([place]) N Other Skin Condition N Diabetes Y [...] ICD10 Code Diagnosis IMO Codes Diagnosis Note [id number] FUAD CHOW [facility] of [address] [address] 01/31/2025 14:06:08 01/31/2025 15:20:53 Sensorineural hearing loss of bilateral ears 856532512 H90.3 [id number] Audiologic al evaluation results:Matthias rderline normal sloping to moderately -severe sensorineu ral hearing loss with excellent word recognitio n, bilaterall y. Tympanomet ry:Right Ear:Type ALeft Ear:Type A Benign par oxysmal positional vertigo 460947597 H81.13 32467381 Migraine variants 339338 005 G43.809 58038639 Migraine with aura 71008 06 G43.488 [id number] Health Concerns Section Related Observation LastModified by Organization Detai ls LastModified Time None Recorded Concern Status LastModified by Organization Details LastModified Time None Recorded Payers Encounter Date Sequence Insurance Name Policy Number Policy Calzada Covered Member ID Calzada Member ID Guarantor Name 01/31/2025 1 [facility] - DOS ON OR AFTER 2022 - ONE CARE (MEDICARE REPLACEMENT/ADV ANTAGE - HMO) Ninoska Rooney [id number] Ninoska Rooney Notes Date Note Type Note Provider Name [...] scotomas, photophobia, and phonophobia. SHASHANK YORK MD [address] [place] [address], [id number] - [facility] 02/02/2025 08:35:56 OBGyn Episode No OBEpisode recorded.
== END 2025-05-03 11:10 | disposition home or self-care (01) ==
LOC: HO.HSM 10:27
PROVIDERS: PCP Internal Medicine; Visit Provider Nurse Practitioner
DX: G43.009 Migraine without aura, not intractable, without status migrainosus (principal); M79.18 Myalgia, other site; M25.519 Pain in unspecified shoulder; R25.1 Tremor, unspecified; G23.8 Other specified degenerative diseases of basal ganglia; G47.01 Insomnia due to medical condition
CPT/HCPCS: 20553

== ENCOUNTER → 2025-05-03 10:26 | Outpatient (BNVA) | payer OTHER, SELFPAY | PROVIDERS: PCP Internal Medicine; Visit Provider Nurse Practitioner | DX: G43.009 Migraine without aura, not intractable, without status migrainosus (principal); M79.18 Myalgia, other site; M25.519 Pain in unspecified shoulder; R25.1 Tremor, unspecified; G23.8 Other specified degenerative diseases of basal ganglia; G47.01 Insomnia due to medical condition | CPT/HCPCS: 20553; J0665 ==